=== PATIENT | male | born 1940 | race Caucasian/White ===

== ENCOUNTER 2017-10-09 16:14 | Emergency (ER) | payer MEDICARE, OTHER ==
[2017-10-09] MEDS ORDERED: HYDROmorphone 1 MG/ML Syringe IVPUSH ONE (16:41)
[2017-10-09 17:00] VITALS: BP 112/67
[2017-10-09 17:26] LABS: CHLORIDE,CL 101 mmol/L (98-107); SODIUM,NA 139 mmol/L (136-145)
[2017-10-09] MEDS ORDERED: Morphine 4 MG/ML Syringe IVPUSH ONE (17:39)
--- NOTE | 2017-10-09 18:06 | EDM.PDOC ---
ED HPI GENERAL MEDICAL PROBLEM - General Chief Complaint: Lower Extremity Injury/Pain Time Seen by Provider: 10/09/17 17:40 Source of Information: Reports: Patient, EMS, Family History Limitations: Reports: No Limitations - History of Present Illness INITIAL COMMENTS - FREE TEXT/NARRATIVE: Pt. was attempting to lift an office chair and fell, landing on his R side. He states that he did not strike his head. Denies any neck pain. He states that he thinks he "twisted" wrong during the fall and began experiencing pain in his L hip. Pt. has a history of osteoporosis. He also has a history of CAD, but denies any chest pain, shortness of breath, lightheadedness, or palpitations prior to the fall. Onset: Today Location: Reports: Upper Extremity, Left Quality: Reports: Sharp, Throbbing Severity: Severe Improves with: Reports: Rest Worsens with: Reports: Movement Context: Reports: Trauma Left Hip Pain Score (Numeric/FACES): 7 - Related Data Allergies Allergy/AdvReac Type Severity Reaction Status Date / Time cetirizine HCl Allergy Other Verified 10/09/17 16:39 [From Zyrtec-D] pseudoephedrine HCl Allergy Other Verified 10/09/17 16:39 [From Zyrtec-D] aspirin AdvReac Bleeding Verified 10/09/17 16:39 benazepril HCl AdvReac Nausea and Verified 10/09/17 16:39 [From Lotensin] Vomiting celecoxib [From Celebrex] AdvReac Nausea and Verified 10/09/17 16:39 Vomiting Home Meds: Home Meds Alendronate [Fosamax] 1 tab PO ASDIRECTED 05/23/15 [History] Calcium Carbonate [Tums] 1 tab PO ASDIRECTED PRN 05/23/15 [History] Calcium Carbonate/Vitamin D3 [Calcium 600 + Vit D Tablet] 1 tab PO DAILY [History] Citalopram Hydrobromide [Celexa] 30 mg PO DAILY 05/23/15 [History] Cyclobenzaprine [Flexeril] 1 tab PO DAILY 05/23/15 [History] Ferrous Sulfate 325 mg PO DAILY 05/23/15 [History] Hydrochlorothiazide 1 tab PO DAILY 05/23/15 [History] Hydrocodone/Acetaminophen [[facility] 10-325] 1 tab PO Q4H PRN 05/23/15 [History] Losartan [Cozaar] 1 tab PO DAILY 05/23/15 [History] Lovastatin 1 tab PO BEDTIME 05/23/15 [History] Magnesium Hydroxide [Milk of Magnesia] 30 ml PO DAILY PRN 05/23/15 [History] Meloxicam [Mobic] 1 tab PO DAILY 05/23/15 [History] Multivitamin with Minerals [Multivitamins with Minerals] 1 tab PO DAILY [History] Omeprazole [Prilosec] 1 cap PO BID 05/23/15 [History] amLODIPine [Norvasc] 1 tab PO DAILY 05/23/15 [History] predniSONE [Prednisone] 4 tab PO Q2D 05/23/15 [History] predniSONE [Prednisone] 5 mg PO Q2D 05/23/15 [History] Past Medical History Other Cardiovascular History: HOLOSYSTOLIC MURMUR Other Gastrointestinal History: HX OF SMALL BOWEL OBSTRUCTION Other Genitourinary History: TESTOSTERONE DEF, Other Musculoskeletal History: DJD, TROCHANTERIC BURSITIS Other Neuro History: HERPES SIMPLEX LABIALIS - Past Surgical History Other GI Surgeries/Procedures: VENTRAL HERNIA Other Musculoskeletal Surgeries/Procedures:: POLYMYALGIA RHEUMATICA, shoulder injection Social & Family History - Tobacco Use Smoking Status *Q: Never Smoker Used Tobacco, but Quit: Yes Month Tobacco Last Used: 40 years ago Second Hand Smoke Exposure: Yes - Recreational Drug Use Recreational Drug Use: No Drug Use in Last 12 Months: No Review of Systems - Review of Systems Review Of Systems: See Below Constitutional: Reports: No Symptoms Eyes: Reports: No Symptoms Ears: Reports: No Symptoms Nose: Reports: No Symptoms Mouth/Throat: Reports: No Symptoms Respiratory: Reports: No Symptoms Cardiovascular: Reports: No Symptoms GI/Abdominal: Reports: No Symptoms Genitourinary: Reports: No Symptoms Musculoskeletal: Reports: Joint Pain (L hip) Skin: Reports: No Symptoms Neurological: Reports: No Symptoms Psychiatric: Reports: No Symptoms ED EXAM, GENERAL - Physical Exam Exam: See Below Exam Limited By: No Limitations General Appearance: Alert, WD/WN, No Apparent Distress Ears: Normal External Exam, Hearing Grossly Normal Nose: Normal Inspection, Normal Mucosa, No Blood Throat/Mouth: Normal Inspection, Normal Lips, Normal Teeth, Normal Gums, Normal Oropharynx, Normal Voice, No Airway Compromise Head: Atraumatic, Normocephalic Neck: Normal Inspection, Supple, Non-Tender, Full Range of Motion Respiratory/Chest: No Respiratory Distress, Lungs Clear, Normal Breath Sounds, No Accessory Muscle Use, Chest Non-Tender Cardiovascular: Normal Peripheral Pulses, Regular Rate, Rhythm, No Edema, No Gallop, No JVD, No Murmur, No Rub Peripheral Pulses: 2+: Posterior Tibial (L), Posterior Tibial (R), Dorsalis Pedis (L), Dorsalis Pedis (R) GI/Abdominal: Normal Bowel Sounds, Soft, Non-Tender, No Organomegaly, No Distention, No Abnormal Bruit, No Mass (Male) Exam: Deferred Rectal (Males) Exam: Deferred Back Exam: Normal Inspection, Full Range of Motion, NT Extremities: Joint Swelling, Leg Pain, Other (pain on palpation and manipulation of L hip. The extremity is inwardly rotated. No shortening noted.) Neurological: Alert, Oriented, CN II-XII Intact, Normal Cognition, Normal Gait, Normal Reflexes, No Motor/Sensory Deficits Psychiatric: Normal Affect, Normal Mood Skin Exam: Warm, Dry, Intact, Normal Color, No Rash Course - Vital Signs Last Recorded V/S: Last Vital Signs Temp 36.1 C 10/09/17 16:20 Pulse 67 10/09/17 16:20 Resp 18 10/09/17 16:20 BP 112/67 10/09/17 16:20 Pulse Ox 95 10/09/17 16:20 - Orders/Labs/Meds Orders: Active Orders 24 hr Category Date Time Status Hip Min 2V or 3V w Pelvis Lt [CR] Stat Exams 10/09/17 16:41 Taken Labs: Laboratory Tests 10/09/17 10/09/17 10/09/17 Range/Units 16:55 16:55 16:55 WBC 10.6 H (4.0-10.0) x10^3/uL RBC 4.15 L (4.5-6.0) x10^6/uL Hgb 12.0 L (14.0-18.0) g/dL Hct 38.1 L (40.0-52.0) % MCV 91.8 (78.0-93.0) fL MCH 28.9 (26.0-32.0) pg MCHC 31.5 L (32.0-36.0) g/dL RDW Coeff of Reuben 14.0 (10.0-15.0) % Plt Count 194 (130-400) x10^3/uL Neut % (Auto) 71.0 (50.0-80.0) % Lymph % (Auto) 19.8 L (25.0-50.0) % [place] % (Auto) 6.4 (2.0-11.0) % Eos % (Auto) 2.2 (0.0-4.0) % Baso % (Auto) 0.6 (0.2-1.2) % PT 10.4 (9.8-11.8) SEC INR 1.0 L (2.0-3.5) Sodium 139 (136-145) mmol/L Potassium 3.9 (3.5-5.1) mmol/L Chloride 101 (98-107) mmol/L Carbon Dioxide 30 (21-32) mmol/L BUN 22 H (7-18) mg/dL Creatinine 1.1 (0.70-1.30) mg/dL Est Cr Clr Drug Dosing 56.22 mL/min Estimated GFR (MDRD) > 60 Glucose 106 (74-106) mg/dL Calcium 8.9 (8.5-10.1) mg/dL Corrected Calcium 9.30 (8.5-10.1) mg/dL Total Bilirubin 0.4 (0.2-1.0) mg/dL AST 17 (15-37) U/L ALT 20 (16-63) U/L Alkaline Phosphatase 108 (46-116) U/L Total Protein 7.3 (6.4-8.2) g/dL Albumin 3.5 (3.4-5.0) g/dL Globulin 3.8 Albumin/Globulin Ratio 0.92 Meds: Medications Discontinued Medications Generic Name Dose Route Start Last Admin Trade Name Freq PRN Reason Stop Dose Admin Hydromorphone HCl 1 mg 10/09/17 16:41 10/09/17 16:47 Dilaudid IVPUSH 10/09/17 16:42 1 mg ONETIME ONE Administration Morphine Sulfate 4 mg 10/09/17 17:39 10/09/17 17:49 Morphine IVPUSH 10/09/17 17:40 4 mg ONETIME ONE Administration Departure - Departure Time of Disposition: 18:20 Disposition: DC/Tfer to Acute Hospital 02 Condition: Good Clinical Impression: Closed left hip fracture, Fracture of neck of femur, hip - Discharge Information Referrals: Jordi Nieves MD [Primary Care Provider] - Forms: ED Department Discharge, Interfacility Transfer EMTALA - My Orders Last 24 Hours: My Active Orders 10/09/17 16:41 Hip Min 2V or 3V w Pelvis Lt [CR] Stat - Assessment/Plan Last 24 Hours: My Active Orders 10/09/17 16:41 Hip Min 2V or 3V w Pelvis Lt [CR] Stat
== END 2017-10-09 18:23 | disposition short-term general hospital (02) ==
LOC: VM.ED 16:14
DX: S72.142A Displaced intertrochanteric fracture of left femur, initial encounter for closed fracture (principal); Z79.899 Other long term (current) drug therapy; Z88.6 Allergy status to analgesic agent; Z88.1 Allergy status to other antibiotic agents; Z88.8 Allergy status to other drugs, medicaments and biological substances; Z77.22 Contact with and (suspected) exposure to environmental tobacco smoke (acute) (chronic); W07.XXXA Fall from chair, initial encounter
CPT/HCPCS: 36415; 73502; 80053; 85025; 85610; 96374; 96375; 99284; 99285; J1170; J2270

== ENCOUNTER 2017-10-13 07:35 | Inpatient (IN) | payer MEDICARE, OTHER ==
[2017-10-13] MEDS ORDERED: Magnesium Hydroxide 400 MG/5 ML Susp 30 ML Cup PO PRN (14:29)
[2017-10-13] MEDS ORDERED: Calcium Carbonate 750 MG Tab.Chew PO PRN (14:29)
[2017-10-13] MEDS ORDERED: Acetaminophen/HYDROcodone 325-10 MG Tab PO PRN (14:29)
[2017-10-13] MEDS ORDERED: predniSONE 1 MG Tab PO SCH (15:00)
[2017-10-13] MEDS: predniSONE 1 MG Tab PO SCH (15:11)
--- NOTE | 2017-10-13 18:04 | PCM.HP ---
H&P History of Present Illness - General Date of Service: 10/13/17 Admit Problem/Dx: Admission Diagnosis/Problem Admission Diagnosis/Problem Fracture of head of femur - History of Present Illness Initial Comments - Free Text/Narative: HPI: He is entering Swing Bed for recuperation from Fx L femoral neck, got ORIF with a hip nail on 10/09/17, with an uneventful postop course. He is partial weightbearing, using a walker, on regular diet. 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 His fall occurred when he put his recliner chair up on the table to oil it because it was squeaking, and it tipped off and fell on him, knocking him over. After having osteoporosis for many years he had a DEXA scan 07/15 which finally showed true osteoporosis, T score of hip was -2.6 so he was given Fosamax in but he stopped it after a month because of GI upset. On his Annual Physical last year this was noted so he was given 1 dose of Reclast 5 mg IV on 03/31/17 and will get it to annually for a few years, plan DEXA scan sometime next summer. Medical History -Hx HTn, COPD, hyperlipidemia, microcytosis w/o anemia, and depression -Rx Prednisone for PMR since -Prostatic hypertrophy. -Fe def'y , Fe sat'n 12%, 10%; 12/08 8%, Rx Fe again as FeSO4 instead of Feritinic -08/03 Ortho consult for DJD knees TNagleMD, R hip 08/04, 09/04 Lorcet, 10/04 Oxycontin, 11/04 Duragesic -Hosp 01/01 for GI bleeding, transfusion 2 units; antral,duodenal ulcers on EGD -09/04 ENT consult for vertigo, JReynoldsMD -09/04 Pulm consult for chronic cough, BAndersonMD; Rx inhaled steroid for mild obstruction; methacholine test equivocal; later went to [facility] also -12/02 Sleep Study, Donald, equivocal; CPAP Rx'd 7 cm 02/01, he D/C'd on his own within a few mo. -09/07 Rx testosterone for hypogonadism, D/C'd 05/08 -03/04 start Celexa for depression -EchoKG 01/05: mild valve changes, EF 50% -02/04 XR's, MRI C-spine: many non-specific abnormalities -Neuro consult 04/07 w. SGoliMD for R hand pain, abnormal MRI, rec. medical management, got Neurosurg ref. 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 2 wk says Cymbalta caused back pain -08/12 Rx testosterone again, restarted while wintering in [place] -04/12 Reassured re reactive lymphadenopathy R post cervical, from scalp abrasion -07/12 Hosp x 2 in [place], kaleb, then bowel obstruction, see below -12/11 Rx Prilosec for post-prandial epigastric pain, cleared quickly -11/12 OV for persistent pain R neck, occiput, ear, eye; ESR normal -05/14 Formulary C/O Q-T prolongation w. Celexa 40 mg, pt. wants to continue that dose, says doing well -09/19 EchoKG for systolic murmur: EF 60%, mild mitral irregularity and mild mitral regurgitation only Surgical History -Tonsillectomy as child -Bowel obstruction surgery ', 5 episodes of partial obstruction since, Rx medically, incl. , 05/08. -Spont. bilat pneumothorax ', quit smoking then -CABG x 4, , no chest pain since -Synvisc inj'n both knees 06/03 -Kenalog 40 mg inj'n L shoulder 02/04 for subacromial bursitis, STL -Depo-Medrol inj'n both knees for DJD 03/07, PDD -R inguinal hernia repair 08/08, MGM -09/08 Ortho consult for DJD knees TNagleMD -R total knee arthroplasty 10/06, TNagleMD -Colonoscopy 06/08 unable, changed to Owen; divertics only -L knee replacement 02/07, difficult post-op course, continued pain -07/12 Laparoscopic cholecystectomy -07/12 Hosp: 2 d. p. D/C from above, re-admit for bowel obstruction, 2 ft of small bowel resection; no recurrence in 1 yr afterward -12/13 Kenalog 40 mg injection,~R trochanteric bursitis, also R shoulder for impingement syndrome, subacromial bursitis -01/16 angiogram L femoral artery and angioplasty, good result -Kenalog injection to R trochanteric bursitis 01/16, 05/19 -Bilateral blepharoplasty 03/18, good result ~ Family History -F d. age 85 prostate Ca -M d. 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 Application for [employer] initiated at 11/10. 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 12/16 having surgery for recurrent breast CA. ROS Review of Systems Constitutional: -Weight stays about the same, VS good, felt well until his accident HENT: -Still doesn't use CPAP. ~Hearing OK. ~More teeth extracted this summer, now has complete denture above and partial below, good result.~ Eyes: -Bilateral blepharoplasty 01/16, by Dr. Patel; good result from this and from bilat cataract extraction in 10/16; 03/19 doesn't even wear glasses~ Respiratory: -No bronchitis or pneumonia this winter; was a heavy smoker but quit in . ~ Got lots of SHS from , but she finally quit in , gained lots of weight.~ Cardiovascular: -No chest pain, exertional or otherwise, since his CABG 22 yr ago; no longer carries TNG. ~BP low, has occasional orthostatic lightheadedness~ Gastrointestinal: -Colonoscopy 05/17, divertics and a small hyperplastic polyp, presume no more~ Endocrine: -He has had Impaired Fasting Glucose for many years; TSH normal. ~Needs aggressive lipid management because of his vascular disease~ Genitourinary: -No hesitancy, stream OK.~ Musculoskeletal: -R shoulder painful, had a steroid injection 03/19 but didnt help. Recently had steroid injection R trochanteric bursa with good result Skin: -No change to the lesion on helix of L ear~ Allergic/Immunologic: -No hay fever~ Neurological: -No headaches or syncopal spells~ Hematological: -Bleeds easily, even though has not taking his recommended ASA~ Psychiatric/Behavioral: -On Celexa many years, "it works very well", at 30 mg daily~ Physical Exam: -General: Alert and comfortable, VS OK -Eyes: Pupils equal -Mouth and throat: Dentures above, partial below, no abnormality -Neck: No thyroid enlargement or masses -Cardiac: Heart sounds regular, soft systolic murmur as before -Chest: Lung sounds clear -Abdomen: Soft and nontender -: Not done -Extremities: Did not test ROM of his R shoulder, sitting in chair; no ankle edema -Skin: 3 small incisions, with dressings over her L hip; no abnormality noted; the lesion on his ear has not changed -Neurologic: Facial muscles, speech, movement of extremities normal -Psych: Affect normal Impression: -Fall with L femoral neck fracture, S/P ORIF with nail -Generalized atherosclerosis with moderate carotid stenosis and peripheral artery disease, S/P angioplasty -Polymyalgia rheumatica, managed on low-dose prednisone -Osteoporosis, probably from his long-term prednisone Rx; on Reclast since 03/19 because he didnt tolerate bisphosphonates -DJD, especially R shoulder -HTn~still somewhat overtreated -Impaired fasting glucose Plan: -Fosamax DCd because of intolerance previously -Continue swing bed, gradually increase weightbearing with Surgery F/U -Temporarily increase his [place]aho up to 10/325 every 4 hours when necessary Left Hip Pain Score (Numeric/FACES): 4 - Related Data Allergies/Adverse Reactions: Allergies Allergy/AdvReac Type Severity Reaction Status Date / Time aspirin AdvReac Bleeding Verified 10/09/17 16:39 benazepril HCl AdvReac Nausea and Verified 10/09/17 16:39 [From Lotensin] Vomiting celecoxib [From Celebrex] AdvReac Nausea and Verified 10/09/17 16:39 Vomiting cetirizine HCl AdvReac Drowsiness Verified 10/13/17 11:41 [From Zyrtec-D] pseudoephedrine HCl AdvReac Drowsiness Verified 10/13/17 11:41 [From Zyrtec-D] Home Medications: Home Meds Calcium Carbonate [Tums] 1 tab PO ASDIRECTED PRN 05/23/15 [History] Calcium Carbonate/Vitamin D3 [Calcium 600 + Vit D Tablet] 1 tab PO BID 05/23/15 [History] Citalopram Hydrobromide [Celexa] 10 mg PO DAILY 05/23/15 [History] Hydrochlorothiazide 25 mg PO DAILY 05/23/15 [History] Lovastatin 20 mg PO BEDTIME 05/23/15 [History] Magnesium Hydroxide [Milk of Magnesia] 30 ml PO DAILY PRN 05/23/15 [History] Multivitamin with Minerals [Multivitamins with Minerals] 1 tab PO DAILY [History] Omeprazole [Prilosec] 20 mg PO DAILY 05/23/15 [History] predniSONE [Prednisone] 4 tab PO Q3D 05/23/15 [History] predniSONE [Prednisone] 5 mg PO Q3D 05/23/15 [History] Phenylephrine [Attila-Synephrine 0.5% Regular Nasal [place]] 1 spray NS DAILY [History] Citalopram [Citalopram HBr] 20 mg PO DAILY 10/13/17 [History] Enoxaparin [Lovenox] 40 mg SUBCUT DAILY 10/13/17 [History] Ferrous Sulfate 325 mg PO DAILY 10/13/17 [History] Hydrocodone/Acetaminophen [Hydrocodon-Acetaminophn 10-325] 1 tab PO Q6H PRN [History] Zoledronic Acid in Water [Reclast] 5 mg IV ASDIRECTED 10/13/17 [History] predniSONE [Prednisone] 3 mg PO Q3D 10/13/17 [History] Past Medical History HEENT History: Reports: Allergic Rhinitis Cardiovascular History: Reports: CAD, Heart Murmur, High Cholesterol, Hypertension, ND, PVD, Other (See Below) Other Cardiovascular History: HOLOSYSTOLIC MURMUR, atherosclerosis Respiratory History: Reports: COPD, Sleep Apnea Gastrointestinal History: Reports: GERD, Other (See Below) Other Gastrointestinal History: HX OF SMALL BOWEL OBSTRUCTION, ulcers Other Genitourinary History: TESTOSTERONE DEF, Musculoskeletal History: Reports: Fracture, Osteoarthritis Other Musculoskeletal History: DJD, TROCHANTERIC BURSITIS Other Neuro History: HERPES SIMPLEX LABIALIS Psychiatric History: Reports: Depression Hematologic History: Reports: Anemia - Past Surgical History HEENT Surgical History: Reports: Cataract Surgery Cardiovascular Surgical History: Reports: Coronary Artery Bypass Respiratory Surgical History: Reports: None GI Surgical History: Reports: Cholecystectomy, Colon, Colonoscopy Other GI Surgeries/Procedures: VENTRAL HERNIA Male Surgical History: Reports: None Musculoskeletal Surgical History: Reports: Joint Replacement, Other (See Below) Other Musculoskeletal Surgeries/Procedures:: POLYMYALGIA RHEUMATICA, shoulder injection, left hip nailing Social & Family History - Family History Family Medical History: Noncontributory - Tobacco Use Smoking Status *Q: Former Smoker Used Tobacco, but Quit: No Month/Year Tobacco Last Used: 40 years ago Second Hand Smoke Exposure: No - Caffeine Use Caffeine Use: Reports: Coffee, Soda - Recreational Drug Use Recreational Drug Use: No Drug Use in Last 12 Months: No H&P Review of Systems - Review of Systems: Review Of Systems: See Below Exam - Exam Exam: See Below - Vital Signs Vital Signs: Last Vital Signs Temp 36.7 C 10/13/17 16:47 Pulse 87 10/13/17 16:47 Resp 16 10/13/17 16:47 BP 127/63 10/13/17 16:47 Pulse Ox 92 L 10/13/17 16:47 Weight: 78.925 kg *Q Meaningful Use (ADM) - VTE *Q VTE Criteria *Q: - Stroke *Q Stroke Criteria *Q: - AMI *Q AMI Criteria *Q: Problem List Initiated/Reviewed/Updated: Yes Orders Last 24hrs: Active Orders 24 hr Category Date Time Status Admission Status [Patient Status] [ADT] Routine ADT 10/13/17 11:30 Active Patient Status [ADT] Routine ADT 10/13/17 14:27 Active Activity as Tolerated [RC] Care 10/13/17 11:30 Active Communication Order [RC] Care 10/13/17 10:22 Active Oxygen Therapy [RC] .PRN Care 10/13/17 14:27 Active VTE/DVT Education [RC] PER UNIT ROUTINE Care 10/13/17 14:27 Active Vital Signs [RC] ,18 Care 10/13/17 14:27 Active OT Evaluation and Treatment [CONS] Routine Cons 10/13/17 11:30 Active PT Evaluation and Treatment [CONS] Routine Cons 10/13/17 11:30 Active Regular Diet [DIET] Diet 10/13/17 Lunch Active Acetaminophen/HYDROcodone [[place]aho 325-10 MG] Med 10/13/17 17:29 Ordered 1 tab PO Q4H PRN Alendronate [Fosamax] Med 10/14/17 06:00 Stop Req 70 mg PO Q7D@0600 Calcium Carbonate [Tums Extra Strength] Med 10/13/17 14:29 Active 1 mg PO ASDIRECTED PRN Calcium Carbonate/Vitamin D3 [Calcium Carbonate/Vitamin Med 10/13/17 20:00 Active D 1250 MG-200 Unit] 1 tab PO BID Citalopram [Celexa] Med 10/14/17 08:00 Active 10 mg PO DAILY Citalopram [Celexa] Med 10/14/17 08:00 Active 20 mg PO DAILY Enoxaparin [Lovenox] Med 10/14/17 08:00 Active 40 mg SUBCUT DAILY Ferrous Sulfate Med 10/14/17 08:00 Active 325 mg PO DAILY Hydrochlorothiazide Med 10/14/17 08:00 Active 25 mg PO DAILY Lovastatin [Lovastatin] Med 10/13/17 20:00 Active 20 mg PO BEDTIME Magnesium Hydroxide [Milk of Magnesia] Med 10/13/17 14:29 Active 30 ml PO DAILY PRN Multivitamins w-Iron/Ca/FA/Min [Thera M Plus] Med 10/14/17 08:00 Active 1 tab PO DAILY Omeprazole Med 10/14/17 07:00 Active 20 mg PO DAILY@0700 Phenylephrine [Attila-Synephrine 0.5% Regular Nasal [place]] Med 10/14/17 08:00 Active 1 spray NS DAILY predniSONE Med 10/13/17 15:00 Active 3 mg PO Q3D@0800 predniSONE Med 10/15/17 08:00 Active 4 mg PO Q3D@0800 predniSONE Med 10/14/17 08:00 Active 5 mg PO Q3D@0800 Ice Therapy [OM.PC] Routine Oth 10/13/17 10:24 Ordered Weight bearing status [OM.PC] Routine Oth 10/13/17 11:30 Active Medication Orders Hydrocodone Bitart/Acetaminophen ([place] 325-10 Mg) 1 tab PO Q4H PRN PRN Reason: Pain (severe 7-10) Alendronate Sodium (Fosamax) 70 mg PO Q7D@0600 [facility] Calcium Carbonate (Calcium Carbonate/Vitamin D 1250 Mg-200 Unit) 1 tab PO BID SHANNON Calcium Carbonate/Glycine (Tums Extra Strength) 1 mg PO ASDIRECTED PRN PRN Reason: Heartburn Citalopram Hydrobromide (Celexa) 20 mg PO DAILY [facility] Citalopram Hydrobromide (Celexa) 10 mg PO DAILY [facility] Enoxaparin Sodium (Lovenox) 40 mg SUBCUT DAILY [facility] Ferrous Sulfate (Ferrous Sulfate) 325 mg PO DAILY [facility] Hydrochlorothiazide (Hydrochlorothiazide) 25 mg PO DAILY [facility] Magnesium Hydroxide (Milk Of Magnesia) 30 ml PO DAILY PRN PRN Reason: Constipation Multivitamins/Minerals (Thera M Plus) 1 tab PO DAILY [facility] Lovastatin [ Lovastatin] 20 Mg ( Own Supply) 20 mg PO BEDTIME [facility] Phenylephrine [Attila- Synephrine 0.5% Regular Nasal [place]] 1 spray NS DAILY [facility] Omeprazole (Omeprazole) 20 mg PO DAILY@0700 [facility] Prednisone (Prednisone) 4 mg PO Q3D@0800 [facility] Prednisone (Prednisone) 5 mg PO Q3D@0800 [facility] Prednisone (Prednisone) 3 mg PO Q3D@0800 [facility] Last Admin: 10/13/17 15:11 Dose: 3 mg
[2017-10-13] MEDS: Acetaminophen/HYDROcodone 325-10 MG Tab PO PRN (19:56)
[2017-10-13] MEDS: Calcium Carbonate/Vitamin D3 1250 MG-200 Unit Tab PO SCH (19:58)
[2017-10-13] MEDS ORDERED: LOVASTATIN 20 MG PO SCH (20:00)
[2017-10-13] MEDS: Simvastatin 10 MG Tab PO SCH (22:33)
[2017-10-14] MEDS: Acetaminophen/HYDROcodone 325-10 MG Tab PO PRN ×5 (03:28→20:18)
[2017-10-14] MEDS ORDERED: Alendronate 70 MG Tab PO SCH (06:00)
[2017-10-14] MEDS: Omeprazole 20 MG Cap.CR PO SCH (06:46)
[2017-10-14] MEDS: Citalopram 10 MG Tab PO SCH (07:49)
[2017-10-14] MEDS: predniSONE 5 MG Tab PO SCH (07:49)
[2017-10-14] MEDS: Ferrous Sulfate 325 MG Tab PO SCH (07:49)
[2017-10-14] MEDS: Hydrochlorothiazide 25 MG Tab PO SCH (07:49)
[2017-10-14] MEDS: Citalopram 20 MG Tab PO SCH (07:50)
[2017-10-14] MEDS: Calcium Carbonate/Vitamin D3 1250 MG-200 Unit Tab PO SCH ×2 (07:50→19:36)
[2017-10-14] MEDS: Multivitamins with Iron/Calcium/Folic Acid/Minerals Tab PO SCH (07:50)
[2017-10-14] MEDS: Enoxaparin 40 MG/0.4 ML Syringe SUBCUT SCH (07:52)
[2017-10-14] MEDS: OXYMETAZOLINE NS SCH (12:34)
[2017-10-14] MEDS: Simvastatin 10 MG Tab PO SCH (19:37)
[2017-10-15] MEDS: Acetaminophen/HYDROcodone 325-10 MG Tab PO PRN ×4 (03:40→16:06)
[2017-10-15] MEDS: Omeprazole 20 MG Cap.CR PO SCH (06:43)
[2017-10-15] MEDS: Citalopram 10 MG Tab PO SCH (07:59)
[2017-10-15] MEDS: Ferrous Sulfate 325 MG Tab PO SCH (08:00)
[2017-10-15] MEDS: Hydrochlorothiazide 25 MG Tab PO SCH (08:04)
[2017-10-15] MEDS: Enoxaparin 40 MG/0.4 ML Syringe SUBCUT SCH (08:06)
[2017-10-15] MEDS: Multivitamins with Iron/Calcium/Folic Acid/Minerals Tab PO SCH (08:06)
[2017-10-15] MEDS: Calcium Carbonate/Vitamin D3 1250 MG-200 Unit Tab PO SCH ×2 (08:06→20:06)
[2017-10-15] MEDS: Citalopram 20 MG Tab PO SCH (08:08)
[2017-10-15] MEDS: OXYMETAZOLINE NS SCH (08:12)
[2017-10-15] MEDS: predniSONE 1 MG Tab PO SCH (11:41)
[2017-10-15] MEDS: Simvastatin 10 MG Tab PO SCH (20:07)
[2017-10-16] MEDS: Acetaminophen/HYDROcodone 325-10 MG Tab PO PRN ×5 (00:08→19:28)
[2017-10-16] MEDS: Omeprazole 20 MG Cap.CR PO SCH (06:00)
[2017-10-16] MEDS: predniSONE 1 MG Tab PO SCH (07:30)
[2017-10-16] MEDS: Calcium Carbonate/Vitamin D3 1250 MG-200 Unit Tab PO SCH ×2 (07:31→19:28)
[2017-10-16] MEDS: Citalopram 20 MG Tab PO SCH (07:31)
[2017-10-16] MEDS: Multivitamins with Iron/Calcium/Folic Acid/Minerals Tab PO SCH (07:31)
[2017-10-16] MEDS: Hydrochlorothiazide 25 MG Tab PO SCH (07:31)
[2017-10-16] MEDS: Citalopram 10 MG Tab PO SCH (07:32)
[2017-10-16] MEDS: Ferrous Sulfate 325 MG Tab PO SCH (07:32)
[2017-10-16] MEDS: Enoxaparin 40 MG/0.4 ML Syringe SUBCUT SCH (07:33)
[2017-10-16] MEDS: OXYMETAZOLINE NS SCH (07:34)
[2017-10-16] MEDS: Simvastatin 10 MG Tab PO SCH (19:28)
[2017-10-17] MEDS: Acetaminophen/HYDROcodone 325-10 MG Tab PO PRN ×6 (00:04→20:05)
[2017-10-17] MEDS: Omeprazole 20 MG Cap.CR PO SCH (06:01)
[2017-10-17] MEDS: Calcium Carbonate/Vitamin D3 1250 MG-200 Unit Tab PO SCH ×2 (07:55→20:06)
[2017-10-17] MEDS: Citalopram 20 MG Tab PO SCH (07:56)
[2017-10-17] MEDS: Ferrous Sulfate 325 MG Tab PO SCH (07:56)
[2017-10-17] MEDS: Citalopram 10 MG Tab PO SCH (07:56)
[2017-10-17] MEDS: Hydrochlorothiazide 25 MG Tab PO SCH (07:57)
[2017-10-17] MEDS: predniSONE 5 MG Tab PO SCH (07:57)
[2017-10-17] MEDS: Multivitamins with Iron/Calcium/Folic Acid/Minerals Tab PO SCH (07:57)
[2017-10-17] MEDS: Enoxaparin 40 MG/0.4 ML Syringe SUBCUT SCH (07:57)
[2017-10-17] MEDS: OXYMETAZOLINE NS SCH (07:58)
[2017-10-17] MEDS: Simvastatin 10 MG Tab PO SCH (20:06)
[2017-10-18] MEDS: Acetaminophen/HYDROcodone 325-10 MG Tab PO PRN ×6 (00:05→20:12)
[2017-10-18] MEDS: Omeprazole 20 MG Cap.CR PO SCH (06:19)
[2017-10-18] MEDS: predniSONE 1 MG Tab PO SCH (08:09)
[2017-10-18] MEDS: Ferrous Sulfate 325 MG Tab PO SCH (08:10)
[2017-10-18] MEDS: Citalopram 20 MG Tab PO SCH (08:10)
[2017-10-18] MEDS: Multivitamins with Iron/Calcium/Folic Acid/Minerals Tab PO SCH (08:10)
[2017-10-18] MEDS: Citalopram 10 MG Tab PO SCH (08:10)
[2017-10-18] MEDS: Calcium Carbonate/Vitamin D3 1250 MG-200 Unit Tab PO SCH ×2 (08:10→20:11)
[2017-10-18] MEDS: Hydrochlorothiazide 25 MG Tab PO SCH (08:10)
[2017-10-18] MEDS: Enoxaparin 40 MG/0.4 ML Syringe SUBCUT SCH (08:12)
[2017-10-18] MEDS: OXYMETAZOLINE NS SCH (08:14)
[2017-10-18] MEDS: Simvastatin 10 MG Tab PO SCH (20:11)
[2017-10-19] MEDS: Acetaminophen/HYDROcodone 325-10 MG Tab PO PRN ×6 (04:02→20:29)
[2017-10-19] MEDS: Omeprazole 20 MG Cap.CR PO SCH (06:20)
[2017-10-19] MEDS: Calcium Carbonate/Vitamin D3 1250 MG-200 Unit Tab PO SCH ×2 (07:50→19:57)
[2017-10-19] MEDS: Ferrous Sulfate 325 MG Tab PO SCH (07:50)
[2017-10-19] MEDS: predniSONE 1 MG Tab PO SCH (07:51)
[2017-10-19] MEDS: Multivitamins with Iron/Calcium/Folic Acid/Minerals Tab PO SCH (07:52)
[2017-10-19] MEDS: Citalopram 20 MG Tab PO SCH (07:52)
[2017-10-19] MEDS: Hydrochlorothiazide 25 MG Tab PO SCH (07:52)
[2017-10-19] MEDS: Citalopram 10 MG Tab PO SCH (07:52)
[2017-10-19] MEDS: Enoxaparin 40 MG/0.4 ML Syringe SUBCUT SCH (07:54)
[2017-10-19] MEDS: OXYMETAZOLINE NS SCH (07:54)
--- NOTE | 2017-10-19 12:43 | PCM.PN ---
- General Info Date of Service: 10/19/17 Admission Dx/Problem (Free Text): His knee is progressing well and he anticipates discharge to home on 10/21/17. He has had such trouble sleeping that at night he has become delirious and agitated, threatening self-harm. Says he normally sleeps quite well at home except for waking up too early some mornings. He is not a candidate for benzodiazepine because of his chronic hydrocodone Rx, so he agrees to take melatonin 6 mg daily at bedtime until D/C. - Patient Data Vitals - Most Recent: Last Vital Signs Temp 36.2 C 10/19/17 05:52 Pulse 87 10/19/17 05:52 Resp 18 10/19/17 05:52 BP 138/77 10/19/17 05:52 Pulse Ox 94 L 10/19/17 05:52 Weight - Most Recent: 72.688 kg I&O - Last 24 Hours: Intake & Output 10/18/17 10/19/17 10/19/17 22:59 06:59 14:59 Intake Total 1200 180 Balance 1200 180 Med Orders - Current: Current Medications Hydrocodone Bitart/Acetaminophen (Cadet 325-10 Mg) 1 tab PO Q4H PRN PRN Reason: Pain (severe 7-10) Last Admin: 10/19/17 12:21 Dose: 1 tab Calcium Carbonate (Calcium Carbonate/Vitamin D 1250 Mg-200 Unit) 1 tab PO BID [facility] Last Admin: 10/19/17 07:50 Dose: 1 tab Calcium Carbonate/Glycine (Tums Extra Strength) 1 mg PO ASDIRECTED PRN PRN Reason: Heartburn Citalopram Hydrobromide (Celexa) 20 mg PO DAILY [facility] Last Admin: 10/19/17 07:52 Dose: 20 mg Citalopram Hydrobromide (Celexa) 10 mg PO DAILY [facility] Last Admin: 10/19/17 07:52 Dose: 10 mg Enoxaparin Sodium (Lovenox) 40 mg SUBCUT DAILY [facility] Last Admin: 10/19/17 07:54 Dose: 40 mg Ferrous Sulfate (Ferrous Sulfate) 325 mg PO DAILY [facility] Last Admin: 10/19/17 07:50 Dose: 325 mg Hydrochlorothiazide (Hydrochlorothiazide) 25 mg PO DAILY [facility] Last Admin: 10/19/17 07:52 Dose: 25 mg Magnesium Hydroxide (Milk Of Magnesia) 30 ml PO DAILY PRN PRN Reason: Constipation Melatonin (Melatonin) 6 mg PO BEDTIME [facility] Multivitamins/Minerals (Thera M Plus) 1 tab PO DAILY [facility] Last Admin: 10/19/17 07:52 Dose: 1 tab Sinex (Oxymetazoline () 0.05% (Own Supply)) 1 spray NS DAILY [facility] Last Admin: 10/19/17 07:54 Dose: 1 spray Omeprazole (Omeprazole) 20 mg PO DAILY@0700 [facility] Last Admin: 10/19/17 06:20 Dose: 20 mg Prednisone (Prednisone) 4 mg PO Q3D@0800 [facility] Last Admin: 10/18/17 08:09 Dose: 4 mg Prednisone (Prednisone) 5 mg PO Q3D@0800 [facility] Last Admin: 10/17/17 07:57 Dose: 5 mg Prednisone (Prednisone) 3 mg PO Q3D@0800 [facility] Last Admin: 10/19/17 07:51 Dose: 3 mg Simvastatin (Zocor) 10 mg PO BEDTIME [facility] Last Admin: 10/18/17 20:11 Dose: 10 mg Discontinued Medications Hydrocodone Bitart/Acetaminophen (Cadet 325-10 Mg) 1 tab PO Q6H PRN PRN Reason: Pain (severe 7-10) Last Admin: 10/13/17 15:50 Dose: 1 tab Alendronate Sodium (Fosamax) 70 mg PO Q7D@0600 [facility] Lovastatin [ Lovastatin] 20 Mg ( Own Supply) 20 mg PO BEDTIME [facility] Last Admin: 10/14/17 08:19 Dose: Not Given Prednisone (Prednisone) 3 mg PO Q3D [facility] - Problem List Review Problem List Initiated/Reviewed/Updated: Yes - My Orders Last 24 Hours: My Active Orders 10/19/17 20:00 Melatonin 6 mg PO BEDTIME
[2017-10-19] MEDS: Simvastatin 10 MG Tab PO SCH (19:57)
[2017-10-19] MEDS ORDERED: Melatonin 3 MG Tab PO SCH (20:00)
[2017-10-20] MEDS: Acetaminophen/HYDROcodone 325-10 MG Tab PO PRN ×5 (00:44→17:06)
[2017-10-20] MEDS: Omeprazole 20 MG Cap.CR PO SCH (06:24)
[2017-10-20] MEDS: Ferrous Sulfate 325 MG Tab PO SCH (07:51)
[2017-10-20] MEDS: Enoxaparin 40 MG/0.4 ML Syringe SUBCUT SCH (07:51)
[2017-10-20] MEDS: Calcium Carbonate/Vitamin D3 1250 MG-200 Unit Tab PO SCH ×2 (07:52→20:12)
[2017-10-20] MEDS: Hydrochlorothiazide 25 MG Tab PO SCH (07:52)
[2017-10-20] MEDS: Citalopram 10 MG Tab PO SCH (07:52)
[2017-10-20] MEDS: Citalopram 20 MG Tab PO SCH (07:52)
[2017-10-20] MEDS: Multivitamins with Iron/Calcium/Folic Acid/Minerals Tab PO SCH (07:52)
[2017-10-20] MEDS: predniSONE 5 MG Tab PO SCH (08:03)
[2017-10-20] MEDS: OXYMETAZOLINE NS SCH (08:06)
[2017-10-20] MEDS: Calcium Carbonate 750 MG Tab.Chew PO PRN (09:31)
[2017-10-20] MEDS ORDERED: traZODone 50 MG Tab PO SCH (20:00)
[2017-10-20] MEDS: Simvastatin 10 MG Tab PO SCH (20:12)
[2017-10-21] MEDS: Acetaminophen/HYDROcodone 325-10 MG Tab PO PRN (00:26)
[2017-10-21 05:51] VITALS: BP 115/55
[2017-10-21] MEDS: Omeprazole 20 MG Cap.CR PO SCH (06:09)
[2017-10-21] MEDS: Citalopram 10 MG Tab PO SCH (07:49)
[2017-10-21] MEDS: Citalopram 20 MG Tab PO SCH (07:50)
[2017-10-21] MEDS: Calcium Carbonate/Vitamin D3 1250 MG-200 Unit Tab PO SCH (07:50)
[2017-10-21] MEDS: Multivitamins with Iron/Calcium/Folic Acid/Minerals Tab PO SCH (07:51)
[2017-10-21] MEDS: Ferrous Sulfate 325 MG Tab PO SCH (07:51)
[2017-10-21] MEDS: predniSONE 1 MG Tab PO SCH (07:52)
[2017-10-21] MEDS: Enoxaparin 40 MG/0.4 ML Syringe SUBCUT SCH (07:54)
[2017-10-21] MEDS: OXYMETAZOLINE NS SCH (07:56)
[2017-10-21] MEDS: Hydrochlorothiazide 25 MG Tab PO SCH (07:56)
[2017-10-21] MEDS: Calcium Carbonate 750 MG Tab.Chew PO PRN (07:57)
--- NOTE | 2017-10-21 09:50 | PCM.DCSUM1 ---
Discharge Summary - Hospital Course Free Text/Narrative:: Final Diagnosis: -L intertrochanteric hip Fx -Closed reduction and internal fixation with gamma nail -Insomnia with delirium Secondary diagnoses -Polymyalgia rheumatica -Impaired fasting glucose -Hypertension, controlled -Hyperlipidemia, controlled -Degenerative disease of knees, chronic opioid use -Coronary disease, S/P CABG -Depression, controlled Reason for Admission: Fell at home when a piece of furniture he was fixing fell on him, suffered intertrochanteric Fx L hip, had ORIF with gamma nail on 10/09/17 , admitted to swing bed for recuperation. Initial Findings: -Heart, lungs, vital signs normal -Alert and oriented -3 small incisions over proximal L femur, incisions clean and dressed Treatment and Course in Hospital: He did OK at first but slept very poorly, in spite of an increase in his usual Alpha 10/325, from his previous dose of 4 per day, up to 6 per day, one every 4 hours p.r.n., and he became delirious from this and threatened self-harm and was mildly disoriented. He requested something for sleep, while insisting that after he gets home he expects to be sleeping well again. We tried one night of melatonin 6 mg which did not help, and he got trazodone 50 mg the second night and got a good nights sleep, the night before D/C. His course was otherwise unremarkable and he had no lab during this stay. He had regular Physical Therapy and learned how to walk with a walker partial weightbearing. Condition on Discharge: -Wounds are clean -Lungs clear -Heart sounds normal and regular -Comfortable, alert and oriented Discharge Plan: -Continue partial weightbearing with walker -Keep Ortho appointment tomorrow -Decreased Alpha back to 4 per day again, Rx sent to his pharmacy for #120 -No F/U scheduled with Primary Care - Discharge Data Discharge Date: 10/21/17 Discharge Disposition: Home, Self-Care 01 Condition: Good - Patient Summary/Data Consults: Consultations 10/13/17 11:30 OT Evaluation and Treatment [CONS] Routine PT Evaluation and Treatment [CONS] Routine - Discharge Plan Home Medications: Home Meds Calcium Carbonate [Tums] 1 tab PO ASDIRECTED PRN 05/23/15 [History] Calcium Carbonate/Vitamin D3 [Calcium 600 + Vit D Tablet] 1 tab PO BID 05/23/15 [History] Citalopram Hydrobromide [Celexa] 10 mg PO DAILY 05/23/15 [History] Hydrochlorothiazide 25 mg PO DAILY 05/23/15 [History] Lovastatin 20 mg PO BEDTIME 05/23/15 [History] Magnesium Hydroxide [Milk of Magnesia] 30 ml PO DAILY PRN 05/23/15 [History] Multivitamin with Minerals [Multivitamins with Minerals] 1 tab PO DAILY [History] Omeprazole [Prilosec] 20 mg PO DAILY 05/23/15 [History] predniSONE [Prednisone] 4 tab PO Q3D 05/23/15 [History] predniSONE [Prednisone] 5 mg PO Q3D 05/23/15 [History] Citalopram [Citalopram HBr] 20 mg PO DAILY 10/13/17 [History] Ferrous Sulfate 325 mg PO DAILY 10/13/17 [History] Hydrocodone/Acetaminophen [Hydrocodon-Acetaminophn 10-325] 1 tab PO Q6H PRN [History] Zoledronic Acid in Water [Reclast] 5 mg IV ASDIRECTED 10/13/17 [History] predniSONE [Prednisone] 3 mg PO Q3D 10/13/17 [History] - Patient Data Vitals - Most Recent: Last Vital Signs Temp 36.4 C 10/21/17 05:49 Pulse 54 L 10/21/17 05:49 Resp 19 10/21/17 05:49 BP 115/55 L 10/21/17 05:49 Pulse Ox 91 L 10/21/17 05:49 Weight - Most Recent: 72.688 kg I&O - Last 24 hours: Intake & Output 10/20/17 10/21/17 10/21/17 22:59 06:59 14:59 Intake Total 720 420 Balance 720 420 Med Orders - Current: Current Medications Hydrocodone Bitart/Acetaminophen (Alpha 325-10 Mg) 1 tab PO Q4H PRN PRN Reason: Pain (severe 7-10) Last Admin: 10/21/17 00:26 Dose: 1 tab Calcium Carbonate (Calcium Carbonate/Vitamin D 1250 Mg-200 Unit) 1 tab PO BID [facility] Last Admin: 10/21/17 07:50 Dose: 1 tab Calcium Carbonate/Glycine (Tums Extra Strength) 750 mg PO ASDIRECTED PRN PRN Reason: Heartburn Last Admin: 10/21/17 07:57 Dose: 750 mg Citalopram Hydrobromide (Celexa) 20 mg PO DAILY [facility] Last Admin: 10/21/17 07:50 Dose: 20 mg Citalopram Hydrobromide (Celexa) 10 mg PO DAILY [facility] Last Admin: 10/21/17 07:49 Dose: 10 mg Enoxaparin Sodium (Lovenox) 40 mg SUBCUT DAILY [facility] Last Admin: 10/21/17 07:54 Dose: 40 mg Ferrous Sulfate (Ferrous Sulfate) 325 mg PO DAILY [facility] Last Admin: 10/21/17 07:51 Dose: 325 mg Hydrochlorothiazide (Hydrochlorothiazide) 25 mg PO DAILY [facility] Last Admin: 10/21/17 07:56 Dose: 25 mg Magnesium Hydroxide (Milk Of Magnesia) 30 ml PO DAILY PRN PRN Reason: Constipation Multivitamins/Minerals (Thera M Plus) 1 tab PO DAILY [facility] Last Admin: 10/21/17 07:51 Dose: 1 tab Sinex (Oxymetazoline () 0.05% (Own Supply)) 1 spray NS DAILY [facility] Last Admin: 10/21/17 07:56 Dose: 1 spray Omeprazole (Omeprazole) 20 mg PO DAILY@0700 [facility] Last Admin: 10/21/17 06:09 Dose: 20 mg Prednisone (Prednisone) 4 mg PO Q3D@0800 [facility] Last Admin: 10/21/17 07:52 Dose: 4 mg Prednisone (Prednisone) 5 mg PO Q3D@0800 [facility] Last Admin: 10/20/17 08:03 Dose: 5 mg Prednisone (Prednisone) 3 mg PO Q3D@0800 [facility] Last Admin: 10/19/17 07:51 Dose: 3 mg Simvastatin (Zocor) 10 mg PO BEDTIME [facility] Last Admin: 10/20/17 20:12 Dose: 10 mg Trazodone HCl (Trazodone) 50 mg PO BEDTIME [facility] Last Admin: 10/20/17 20:12 Dose: 50 mg Discontinued Medications Hydrocodone Bitart/Acetaminophen (Alpha 325-10 Mg) 1 tab PO Q6H PRN PRN Reason: Pain (severe 7-10) Last Admin: 10/13/17 15:50 Dose: 1 tab Alendronate Sodium (Fosamax) 70 mg PO Q7D@0600 [facility] Calcium Carbonate/Glycine (Tums Extra Strength) 1 mg PO ASDIRECTED PRN PRN Reason: Heartburn Melatonin (Melatonin) 6 mg PO BEDTIME [facility] Last Admin: 10/19/17 19:57 Dose: 6 mg Lovastatin [ Lovastatin] 20 Mg ( Own Supply) 20 mg PO BEDTIME [facility] Last Admin: 10/14/17 08:19 Dose: Not Given Prednisone (Prednisone) 3 mg PO Q3D [facility] *Q Meaningful Use (DIS) - VTE *Q VTE Criteria *Q: - Stroke *Q Stroke Criteria *Q: - AMI *Q AMI Criteria *Q:
== END 2017-10-21 10:20 | disposition home or self-care (01) | DRG 561 ==
LOC: VM.MS 11:30
PROVIDERS: ADMIT Family Medicine; ATTEND Family Medicine
DX: Z47.89 Encounter for other orthopedic aftercare (principal); G47.00 Insomnia, unspecified; R41.0 Disorientation, unspecified; M35.3 Polymyalgia rheumatica; I10 Essential (primary) hypertension; R73.02 Impaired glucose tolerance (oral); E78.5 Hyperlipidemia, unspecified; M17.0 Bilateral primary osteoarthritis of knee; F32.9 Major depressive disorder, single episode, unspecified; I25.10 Atherosclerotic heart disease of native coronary artery without angina pectoris; M81.0 Age-related osteoporosis without current pathological fracture; J44.9 Chronic obstructive pulmonary disease, unspecified; R01.1 Cardiac murmur, unspecified; K21.9 Gastro-esophageal reflux disease without esophagitis; Z79.899 Other long term (current) drug therapy; Z95.1 Presence of aortocoronary bypass graft; Z88.8 Allergy status to other drugs, medicaments and biological substances; Z87.891 Personal history of nicotine dependence
CPT/HCPCS: 97110-GP; 97116-GP; 97161-GP; 97165-GO; 97530-GP; 97535-GO; A9270-GY; J1650

== ENCOUNTER 2020-01-31 06:55 | Inpatient (IN) | payer MEDICARE, OTHER ==
[2020-01-31] MEDS ORDERED: HYDROmorphone 1 MG/ML Syringe IVPUSH PRN (17:02)
[2020-01-31] MEDS ORDERED: Ondansetron 4 MG/2 ML SDV IV PRN (17:02)
[2020-01-31] MEDS ORDERED: Temazepam 15 MG Cap PO PRN (17:02)
--- NOTE | 2020-01-31 17:02 | PCM.HP.2 ---
H&P History of Present Illness - General Date of Service: 01/31/20 Admit Problem/Dx: CHF - History of Present Illness Initial Comments - Free Text/Narative: Review of Systems Constitutional: Positive for unexpected weight change. Negative for chills and fever. HENT: Positive for dental problem. Negative for trouble swallowing. Eyes: Negative for visual disturbance. Respiratory: Positive for cough and shortness of breath. Negative for wheezing. Cardiovascular: Positive for chest pain. Negative for palpitations and leg swelling. Gastrointestinal: Negative for abdominal pain, blood in stool and vomiting. Genitourinary: Negative for decreased urine volume, difficulty urinating and dysuria. Musculoskeletal: Positive for arthralgias (chronic hip, narcs). Skin: Negative for rash. Neurological: Positive for dizziness. Psychiatric/Behavioral: Negative for self-injury and sleep disturbance. The patient is not nervous/anxious. Physical Exam Constitutional: He appears well-developed and well-nourished. No distress. HENT: Mouth/Throat: Oropharynx is clear and moist. Neck: Normal range of motion. No JVD present. Cardiovascular: Normal rate and regular rhythm. Murmur (faint systolic at apex) heard. Pulmonary/Chest: Effort normal and breath sounds normal. Abdominal: Soft. There is no tenderness. Musculoskeletal: He exhibits no edema. Lymphadenopathy: He has no cervical adenopathy. Skin: Skin is warm and dry. He is not diaphoretic. Psychiatric: He has a normal mood and affect. His behavior is normal. Judgment and thought content normal. CXR - Cardiomegaly and central vascular congestion. Bilateral pleural effusions. Bilateral symmetric basal predominant septal thickening with nonmasslike parenchymal opacities. Combination of findings suggest cardiogenic fluid retention in the chest with both interstitial and parenchymal edema, commonly seen with CHF exacerbation. EKG - Borderline sinus tach, no sig ST/T changes, tremor artifact BNP 20437 Trop - neg D-dimer <1 and largely equal to age would essentially r/o PE etc YEARS Algorithm for Pulmonary Embolism (PE) from [email or web address] on 01/31/2020 RESULT SUMMARY: PE excluded YEARS algorithm rules out PE (0.43% with symptomatic VTE during 3-month follow- up) INPUTS: patient > 0 = No Clinical signs of DVT > 0 = No Hemoptysis > 0 = No PE most likely diagnosis > 0 = No D-dimer ?1,000 ng/mL > 0 = No Assessment / Plan Congestive heart failure, unspecified HF chronicity, unspecified heart failure type (HCC) SOB (shortness of breath) - COMPLETE BLOOD COUNT WITH DIFFERENTIAL; Future - COMPREHENSIVE METABOLIC PANEL; Future - EKG; Future - TROPONIN I; Future - BRAIN NATRIURETIC PEPTIDE; Future - D-DIMER QUANTITATIVE; Future - C-REACTIVE PROTEIN (INFLAMMATION); Future - ESR; Future Weight loss, unintentional - COMPLETE BLOOD COUNT WITH DIFFERENTIAL; Future - COMPREHENSIVE METABOLIC PANEL; Future - EKG; Future - TROPONIN I; Future - BRAIN NATRIURETIC PEPTIDE; Future - D-DIMER QUANTITATIVE; Future - C-REACTIVE PROTEIN (INFLAMMATION); Future - ESR; Future - TSH REFLEX; Future - LDH TOTAL; Future - PSA; Future S/P CABG (coronary artery bypass graft) COPD, mild (HCC) Polymyalgia rheumatica (HCC) Essential hypertension Coronary artery disease involving [place] heart without angina pectoris, unspecified vessel or lesion type Chest pressure Plan: He has the appearance of acute congestive heart failure by his chest x- ray, symptoms, BNP. Last echocardiogram pretty good in 2017, eventually he'll need a follow-up one. He's diuretic randi, we can start him on oral Lasix 40 mg. Troponin negative here, we will get a second set in the morning to rule out non- STEMI. Otherwise no acute changes seen by EKG. Restart low-dose aspirin given known coronary history, at this point risks of GI bleed with would be outweighed the benefit. Think we can hold on heparin acutely here as PE and non-STEMI still don't seem highly likely. Etiology of longer term wt loss still not clear, couple of labs still pending. If pleural effusion not improving could consider CT chest DNR. Social History Socioeconomic History Marital status: Spouse name: Not on file Number of children: 0 Years of education: Not on file Highest education level: Not on file Occupational History Occupation: accounts manager at Occupation: [employer] Tobacco Use Smoking status: Former Smoker Types: Cigarettes Last attempt to quit: 08/03/1973 Years since quittin.5 Smokeless tobacco: Never Used Substance and Sexual Activity Alcohol use: No Alcohol/week: 0.0 standard drinks Drug use: No Types: Prescription Social History Narrative , has 2 step-children who are grown and have children of their own, incl. 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 Officially retired 07/09, but still works part-time. Application for powered scooter initiated at 11/10. Brothers Reji, farms at , [place] and one other. For many years wintered bhavin. in [place], near [place], but 12/11 plans to sell property in [place], too much crime; 11/15 no plans to return, selling property. 12/16 having surgery for recurrent breast CA. Centricity information in 12/03/12. Last CPE 10/18/19. - Related Data Allergies/Adverse Reactions: Allergies Allergy/AdvReac Type Severity Reaction Status Date / Time aspirin AdvReac Bleeding Verified 10/09/17 16:39 benazepril HCl AdvReac Nausea and Verified 10/09/17 16:39 [From Lotensin] Vomiting celecoxib [From Celebrex] AdvReac Nausea and Verified 10/09/17 16:39 Vomiting cetirizine HCl AdvReac Drowsiness Verified 10/13/17 11:41 [From Zyrtec-D] pseudoephedrine HCl AdvReac Drowsiness Verified 10/13/17 11:41 [From Zyrtec-D] Home Medications: Home Meds Calcium Carbonate [Tums] 1 tab PO ASDIRECTED PRN 05/23/15 [History] Calcium Carbonate/Vitamin D3 [Calcium 600 + Vit D Tablet] 1 tab PO BID 05/23/15 [History] Citalopram Hydrobromide [Celexa] 10 mg PO DAILY 05/23/15 [History] Hydrochlorothiazide 25 mg PO DAILY 05/23/15 [History] Lovastatin 20 mg PO BEDTIME 05/23/15 [History] Magnesium Hydroxide [Milk of Magnesia] 30 ml PO DAILY PRN 05/23/15 [History] Multivitamin with Minerals [Multivitamins with Minerals] 1 tab PO DAILY 05/23/15 [History] Omeprazole [Prilosec] 20 mg PO DAILY 05/23/15 [History] predniSONE [Prednisone] 4 tab PO Q3D 05/23/15 [History] predniSONE [Prednisone] 5 mg PO Q3D 05/23/15 [History] Citalopram [Citalopram HBr] 20 mg PO DAILY 10/13/17 [History] Ferrous Sulfate 325 mg PO DAILY 10/13/17 [History] Hydrocodone/Acetaminophen [Hydrocodone-Acetamin 10-325 mg] 1 tab PO Q6H PRN 10/13/17 [History] Zoledronic Acid in Water [Reclast] 5 mg IV ASDIRECTED 10/13/17 [History] predniSONE [Prednisone] 3 mg PO Q3D 10/13/17 [History] Past Medical History HEENT History: Reports: Allergic Rhinitis Cardiovascular History: Reports: CAD, Heart Murmur, High Cholesterol, Hypertension, [place], PVD, Other (See Below) Other Cardiovascular History: HOLOSYSTOLIC MURMUR, atherosclerosis Respiratory History: Reports: COPD, Sleep Apnea Gastrointestinal History: Reports: GERD, Other (See Below) Other Gastrointestinal History: HX OF SMALL BOWEL OBSTRUCTION, ulcers Other Genitourinary History: TESTOSTERONE DEF, Musculoskeletal History: Reports: Fracture, Osteoarthritis Other Musculoskeletal History: DJD, TROCHANTERIC BURSITIS Other Neuro History: HERPES SIMPLEX LABIALIS Psychiatric History: Reports: Depression Hematologic History: Reports: Anemia - Past Surgical History HEENT Surgical History: Reports: Cataract Surgery Cardiovascular Surgical History: Reports: Coronary Artery Bypass Respiratory Surgical History: Reports: None GI Surgical History: Reports: Cholecystectomy, Colon, Colonoscopy Other GI Surgeries/Procedures: VENTRAL HERNIA Male Surgical History: Reports: None Musculoskeletal Surgical History: Reports: Joint Replacement, Other (See Below) Other Musculoskeletal Surgeries/Procedures:: POLYMYALGIA RHEUMATICA, shoulder injection, left hip nailing Social & Family History - Family History Family Medical History: Noncontributory - Caffeine Use Caffeine Use: Reports: Coffee, Soda H&P Review of Systems - Review of Systems: Review Of Systems: See Below Exam - Exam Exam: See Below Sepsis Event Note - Focused Exam Date Exam was Performed: 01/31/20 Time Exam was Performed: 16:59 Problem List Initiated/Reviewed/Updated: Yes
[2020-01-31] MEDS ORDERED: Magnesium Hydroxide 400 MG/5 ML Susp 30 ML Cup PO PRN (17:05)
[2020-01-31] MEDS ORDERED: Calcium Carbonate 750 MG Tab.Chew PO PRN (17:05)
[2020-01-31] MEDS ORDERED: predniSONE 1 MG Tab PO SCH (17:15)
[2020-01-31] MEDS ORDERED: HYDROmorphone 0.5 MG/0.5 ML Syringe IVPUSH PRN (17:49)
[2020-01-31] MEDS: Aspirin 81 MG Tab.Chew PO SCH (18:02)
[2020-01-31] MEDS: Furosemide 40 MG Tab PO SCH (18:02)
[2020-01-31] MEDS: Acetaminophen/HYDROcodone 325-10 MG Tab PO PRN (18:45)
[2020-01-31] MEDS: Calcium Carbonate/Vitamin D3 1250 MG-200 Unit Tab PO SCH (20:21)
[2020-01-31] MEDS: Sodium Chloride 0.9% 10 ML Syringe FLUSH PRN ×2 (21:00→23:57)
[2020-02-01] MEDS: Omeprazole 20 MG Cap.CR PO SCH ×2 (05:24→07:30)
[2020-02-01 07:04] LABS: CHLORIDE,CL 100 mmol/L (98-107); SODIUM,NA 142 mmol/L (136-145)
[2020-02-01 07:26] LABS: ANION GAP 12.6 mmol/L (10-20)
[2020-02-01] MEDS: Multivitamins with Iron/Calcium/Folic Acid/Minerals Tab PO SCH (07:35)
[2020-02-01] MEDS: Cholecalciferol (Vitamin D3) 10 MCG Tab PO SCH (07:35)
[2020-02-01] MEDS: Aspirin 81 MG Tab.Chew PO SCH (07:35)
[2020-02-01] MEDS: Furosemide 40 MG Tab PO SCH (07:35)
[2020-02-01] MEDS: DULoxetine 30 MG Cap PO SCH (07:36)
[2020-02-01] MEDS: Ferrous Sulfate 325 MG Tab PO SCH (07:36)
[2020-02-01] MEDS: Calcium Carbonate/Vitamin D3 1250 MG-200 Unit Tab PO SCH ×2 (07:36→20:37)
[2020-02-01] MEDS ORDERED: Citalopram 20 MG Tab PO SCH (08:00)
[2020-02-01] MEDS ORDERED: Citalopram 10 MG Tab PO SCH (08:00)
[2020-02-01] MEDS ORDERED: DULoxetine 60 MG Cap PO SCH (08:00)
[2020-02-01] MEDS ORDERED: Hydrochlorothiazide 25 MG Tab PO SCH (08:00)
[2020-02-01] MEDS: Acetaminophen/HYDROcodone 325-10 MG Tab PO PRN ×2 (09:38→15:46)
[2020-02-01] MEDS: predniSONE 1 MG Tab PO SCH (09:38)
[2020-02-01] MEDS ORDERED: Iopamidol 612 MG/ML 100 ML Bottle IVPUSH ONE (10:32)
--- NOTE | 2020-02-01 11:37 | CT ---
[id number] CT/CT Chest W IV Exam: CT Chest W IV Clinical Data: HEMOPTYSIS WEIGHT LOSS SHORTNESS OF BREATH COMPARISON: CORRELATION IS MADE WITH YESTERDAY'S CHEST RADIOGRAPH FINDINGS: There are small to moderate bilateral pleural effusions There is no mediastinal mass or adenopathy There are no pulmonary emboli There are diffuse atheromatous calcifications There is extensive bullous emphysema and centrilobular emphysema. 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 NO MEDIASTINAL MASS OR ADENOPATHY SIGNIFICANT COPD BILATERAL EFFUSIONS EARLY ANEURYSM FORMATION OF ABDOMINAL AORTA Lon Lowery MD 02/01/20 1634 Thank you for allowing us to participate in the care of your patient.
[2020-02-01] MEDS: TERIPARATIDE SQ SCH (12:39)
[2020-02-01] MEDS ORDERED: Furosemide 40 MG/4 ML VIAL IV ONE (17:48)
[2020-02-01] MEDS ORDERED: Furosemide 20 MG/2 ML VIAL IVPUSH ONE (18:00)
--- NOTE | 2020-02-01 18:57 | PN ---
Progress Note for MERARI SALGADO Date: 02/01/2020 Room #: VM.205 SUBJECTIVE: This is hospital day #2 on an 79-year-old admitted with an acute heart failure exacerbation. Last EF was back in 2016 and it was 60%. The patient states that about 2 to 3 days ago, he started even having some chest discomfort. He had been coughing more. He had recently been in to the dentist around 01/22. 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 He states he was feeling pretty good right after he finished the antibiotics; however, then his symptoms of coughing up some blood, more short of breath and chest pain started. The patient has not had any fever or chills. He does normally take hydrocodone for chronic pain of the left hip. He has had it broken. He has had surgery. The patient does have a remote history of coronary artery disease and bypass surgery many years ago. He has not had any problems since. He does not currently take any diuretics, but actually he was on hydrochlorothiazide which was discontinued back in like October due to weight loss. He does not report any weight gain. He has actually lost about 100 pounds in his lifetime, but 30 pounds in 1 year, and then another nearly 10 pounds in 2 months from November to January. The patient was also recently started on Cymbalta. He can tolerate 30, but not 60 mg. He had admitted to using more hydrocodone due to his dental pain. He was evaluated in the clinic yesterday and found to have bilateral pleural effusions. He was given 40 mg of oral Lasix and placed on oxygen. He states he is feeling much better and hopes he can go home, but his oxygen saturations are barely over 90% on 3 L. He did smoke, but quit like 40 years ago. He has had no lung problems or required any inhalers. The patient otherwise had an EKG on admission, which showed him to have a sinus rhythm with PACs, nonspecific T-wave abnormalities. OBJECTIVE: VITAL SIGNS: Currently, his temperature is 98.2, his pulse is 109, weight 62 kg, blood pressure 150/99, respiratory rate 16 and O2 of 91% on 3 L. GENERAL: He is in no acute distress. HEART: Regularly irregular. I did not appreciate a murmur, but he states he has had one. LUNGS: Sounds are decreased bilaterally without crackles or wheezes. ABDOMEN: Has positive bowel sounds. Soft, nontender. EXTREMITIES: Warm and dry with no edema. MENTAL STATUS: The patient is alert and orientated x3. His is at the bedside. LABORATORY WORK: Does show white count of 12.4, hemoglobin 13.3, platelets 287. Sodium 142, potassium 3.6, chloride 100, bicarb 33, BUN 14, creatinine 0.9, glucose 116. Repeat troponin today 0.051, still negative. Calcium 9.4. White count from the clinic yesterday was elevated to 13, 1 month ago it was also 13.8. D-dimer was mildly positive, but less than 1. CRP was up to 200. ESR yesterday was 32. TSH was normal. LDH was normal. PSA was also undetectable. ProBNP was elevated to 14,000. ASSESSMENT AND PLAN: 1. Acute on chronic heart failure exacerbation, probably chronic diastolic. Patient was previously on hydrochlorothiazide several months ago. It was stopped and now he is having bilateral pleural effusions and he has responded well to Lasix. At this point, I will switch him over to 20 mg of IV Lasix given the fact that he is hypertensive. He already got the oral 40 this morning. I anticipate he will have good diuresis today and he will require less oxygen. 2. Hemoptysis and unintentional weight loss. The patient will get a lung CT today to rule out any pulmonary embolism given his elevated D-dimer and also malignancy. 3. Shortness of breath, likely due to the heart failure. He also has reported to have mild underlying chronic obstructive pulmonary disease, but has not been on any medications. 4. Known coronary artery disease. He did have some angina previous to admission. This was likely related to heart failure. His troponins have been negative. We will repeat his EKG and place him on telemetry. 5. Polymyalgia rheumatica by history and chronic pain. He is on his hydrocodone and lower dose prednisone. 6. Essential hypertension, likely elevated due to heart failure. 7. Anemia. He is on some iron supplements. This is mild. There is no acute bleeding. 8. Osteoporosis with previous fracture. He is on calcium and vitamin D. 9. Hyperlipidemia. He will continue the Mevacor. 10.Gastroesophageal reflux disease. He will continue his Prilosec daily. 11.Insomnia. He has Restoril available p.r.n. Plan: At this point, the patient will continue his same doses of prednisone. He is low dose for polymyalgia. His pain is under good control. We will place him on telemetry. We will repeat a troponin this afternoon. We will diurese him with IV Lasix and try to get him off oxygen. If he is continuing to require oxygen, we will do a home O2 eval tomorrow. We will get the lung CT today. The patient for DVT prophylaxis due to the hemoptysis will be given only SCDs. He would like to go home as soon as possible anticipate that might be tomorrow. PT also consulted. BEBO: 02/01/2020 18:02:17 MODL: 02/01/2020 18:51:24 /[id number]
[2020-02-01] MEDS: Acetaminophen 325 MG Tab PO PRN (20:37)
[2020-02-01] MEDS: Sodium Chloride 0.9% 10 ML Syringe FLUSH PRN (20:38)
[2020-02-02] MEDS: Acetaminophen/HYDROcodone 325-10 MG Tab PO PRN ×4 (00:38→22:04)
[2020-02-02] MEDS: Omeprazole 20 MG Cap.CR PO SCH ×2 (05:45→06:16)
[2020-02-02 07:14] LABS: CHLORIDE,CL 96 mmol/L (98-107); SODIUM,NA 140 mmol/L (136-145)
[2020-02-02] MEDS: Ferrous Sulfate 325 MG Tab PO SCH (07:37)
[2020-02-02] MEDS: DULoxetine 30 MG Cap PO SCH (07:37)
[2020-02-02] MEDS: Cholecalciferol (Vitamin D3) 10 MCG Tab PO SCH (07:37)
[2020-02-02] MEDS: Calcium Carbonate/Vitamin D3 1250 MG-200 Unit Tab PO SCH ×2 (07:37→19:25)
[2020-02-02] MEDS: Furosemide 40 MG Tab PO SCH (07:37)
[2020-02-02] MEDS: Multivitamins with Iron/Calcium/Folic Acid/Minerals Tab PO SCH (07:37)
[2020-02-02] MEDS: Aspirin 81 MG Tab.Chew PO SCH (07:37)
[2020-02-02] MEDS: Magnesium Oxide 400 MG Tab PO SCH (09:29)
[2020-02-02] MEDS: Potassium Chloride 10 MEQ Tab.ER PO SCH ×2 (09:29→17:47)
[2020-02-02] MEDS: Metoprolol Succinate 25 MG Tab.ER PO SCH (09:30)
[2020-02-02] MEDS ORDERED: Potassium Chloride 20 MEQ Tab.ER PO ONE (09:30)
[2020-02-02] MEDS: predniSONE 1 MG Tab PO SCH (09:35)
[2020-02-02] MEDS: TERIPARATIDE SQ SCH (09:38)
[2020-02-02] MEDS ORDERED: Enoxaparin 40 MG/0.4 ML Syringe SUBCUT ONE (10:45)
--- NOTE | 2020-02-02 10:54 | PN ---
Progress Note for MERARI SALGADO Date: 02/02/2020 Room #: VM.205 SUBJECTIVE: This is hospital day #3 for an 79-year-old admitted with a new heart failure exacerbation and also found to be in atrial fibrillation with rapid ventricular response yesterday. He has had rates up even to the 140s on telemetry. Most of his rates this morning have all been over 110. He is on no rate-controlling medications. He has no history of atrial fibrillation, but he states he is familiar with it. His ejection fraction was 60% in 2017. Otherwise, he states he slept well. His breathing is much better. He has actually been weaned off oxygen at rest, but has not been checked yet with activity. He was up working with PT yesterday and did fine. The patient is hoping to go home today. He denies any fatigue or chest pain. is at bedside and has many questions about his medications. She also asks about his sputum. I told her that the CT scan did show he had a lot of emphysema changes and likely down the road he might need some inhalers, but currently we are focusing on his heart failure. The patient was also restarted on aspirin. He is tolerating that. It was stopped in the past due to stomach bleeding. We discussed possibly taking Coumadin or Eliquis for stroke prevention. He would like Eliquis unless it is too costly. He has not met his deductible, so Coumadin was ordered and pharmacy is aware to do Coumadin teaching. Otherwise, he is eating well, 100% of his meals. OBJECTIVE: Vital Signs: His weight is 50.7 kg today, however, I suspect that to be inaccurate since it was 61 kg the other day because admitting weight was 62 kg and the patient had not had significant edema throughout. Nurses will recheck. Temperature 97, pulse 119, blood pressure 154/98, respiratory rate 18, and O2 of 95% on 2 L. Recently taken off oxygen and has not been rechecked. General: He is in no acute distress. Heart: Irregularly irregular with tachycardia. Lungs: His lung sounds are decreased in both bases but no crackles or wheezes. Abdomen: He has positive bowel sounds. Soft, nontender. Extremities: Warm and dry. No edema. Mental Status: He is alert. He is orientated x3. LABORATORY DATA: Lab work from today did show the patient to have a white count of 11.1, hemoglobin 13.6, platelets 313. Sodium 140, potassium 3, chloride 96, bicarb 36, BUN 19, creatinine 1.1, glucose 125, calcium 9.7, magnesium 1.6. Troponin yesterday afternoon went down to 0.037. It was never positive. ASSESSMENT: 1. Acute on chronic diastolic heart failure exacerbation, known ejection fraction of 60% back in 2017. He will need a repeat echo outpatient. The patient is doing well from a heart failure standpoint. He is diuresing well. He got IV Lasix yesterday but got oral Lasix 40 mg this morning. We will hold off on further IV due to the fact he has severe hypokalemia. Anticipate the patient can be discharged as soon as later today or tomorrow. He will also get heart failure education from nursing. 2. Hemoptysis and unintentional weight loss. His lung CT did not show a PE or any malignancy. 3. Chronic obstructive pulmonary disease, likely at least moderate to severe. His shortness of breath is also related to heart failure and the atrial fibrillation with rapid ventricular response. Discussed with the patient the primary priority right now is for his heart due to needing multiple medications for that. Likely, he will need lung testing as an outpatient. He will get a home O2 eval with ambulation to ensure that he does not need oxygen. 4. Known coronary artery disease with previous coronary artery bypass graft. Troponins have all been negative. Repeat EKG did not show any concerning ST changes. He is no longer having angina. We will continue medical management. He is on aspirin now until he is therapeutic on Coumadin. 5. Polymyalgia rheumatica and chronic pain. He is on his home medications. 6. Atrial fibrillation with rapid ventricular response. The patient will be started on Toprol 25 mg p.o. x1. We will hold off on any digoxin given the fact that the patient has hypokalemia. 7. Hypokalemia. We will give him 80 mEq this morning and another 40 later today. We will repeat this afternoon. 8. Essential hypertension, elevated due to heart failure. Metoprolol and further diuresis should help. 9. Anemia. He is on iron supplements. No acute bleeding concerns. Okay to start the Coumadin today. 10.Osteoporosis with previous fracture. He is on calcium and vitamin D. 11.Gastroesophageal reflux disease. Continue his Prilosec daily. 12.Insomnia. He has Restoril available here p.r.n. 13.Hyperlipidemia. PLAN: At this point, the patient will continue on acute cares. Ideally, the patient would stay overnight. He is really not very willing to do this. I will sign him out to the on-call doctor for evaluation later this afternoon. He will continue on telemetry. We will repeat a potassium. I will replace his potassium orally along with his magnesium orally. We will ensure that the heart rates improve with the oral metoprolol. If they do not, I will give him an IV dose. I will continue oral Lasix. I will start him on Coumadin and pharmacy will provide Coumadin education. The patient will also receive a deep vein thrombosis prophylaxis dose of Lovenox today. MKA: 02/02/2020 09:48:41 MODL: 02/02/2020 10:44:12 /[id number]
[2020-02-02] MEDS ORDERED: Metoprolol Tartrate 5 MG/5 ML SDV IVPUSH ONE (11:10)
[2020-02-02] MEDS ORDERED: Warfarin 2.5 MG Tab PO ONE (12:00)
--- NOTE | 2020-02-02 13:29 | CR ---
[id number] RAD/RAD Chest PA And Lateral EXAM: RAD Chest PA And Lateral INDICATION: HYPOXIA. COMPARISON: January 31, 2020. DISCUSSION: Cardiomegaly with central pulmonary vascular congestion, improved. Overall improved aeration of the lungs bilaterally. IMPRESSION: Overall improved aeration of the lungs with persistent central pulmonary vascular congestion. Esdras Vazquez DO 02/02/20 1327 Thank you for allowing us to participate in the care of your patient.
[2020-02-02] MEDS: Acetaminophen 325 MG Tab PO PRN (19:25)
[2020-02-02] MEDS: Sodium Chloride 0.9% 10 ML Syringe FLUSH PRN (19:26)
[2020-02-03 04:42] VITALS: PULSE 84
[2020-02-03] MEDS: Omeprazole 20 MG Cap.CR PO SCH (06:23)
[2020-02-03] MEDS ORDERED: Warfarin 2.5 MG Tab PO SCH (08:00)
[2020-02-03] MEDS: predniSONE 1 MG Tab PO SCH (08:05)
[2020-02-03] MEDS: Metoprolol Succinate 25 MG Tab.ER PO SCH (08:06)
[2020-02-03] MEDS: Furosemide 40 MG Tab PO SCH (08:06)
[2020-02-03] MEDS: Calcium Carbonate/Vitamin D3 1250 MG-200 Unit Tab PO SCH (08:06)
[2020-02-03] MEDS: Aspirin 81 MG Tab.Chew PO SCH (08:06)
[2020-02-03] MEDS: Multivitamins with Iron/Calcium/Folic Acid/Minerals Tab PO SCH (08:06)
[2020-02-03] MEDS: Cholecalciferol (Vitamin D3) 10 MCG Tab PO SCH (08:06)
[2020-02-03] MEDS: DULoxetine 30 MG Cap PO SCH (08:06)
[2020-02-03] MEDS: Ferrous Sulfate 325 MG Tab PO SCH (08:06)
[2020-02-03] MEDS: Acetaminophen/HYDROcodone 325-10 MG Tab PO PRN (08:07)
[2020-02-03 08:08] VITALS: BP 130/86
[2020-02-03] MEDS: Magnesium Oxide 400 MG Tab PO SCH (08:08)
[2020-02-03 08:12] LABS: CHLORIDE,CL 99 mmol/L (98-107); SODIUM,NA 141 mmol/L (136-145)
[2020-02-03] MEDS: TERIPARATIDE SQ SCH (08:23)
--- NOTE | 2020-02-03 09:09 | PCM.DCSUM1 ---
Discharge Summary - Hospital Course Free Text/Narrative:: Gwyn is a 79yoM who presented on 01/31/20 with c/o of SOB and cough with some hemoptysis. CXR at time of admission demonstrated fluid overload. Trops negative x3, d.dimer slightly positive. Patient does have past echo demonstrating EF of 60% in 2018. Due to c/o hemoptysis and elevated d.dimer a CT chest was obtained and this was negative for PE or pulmonary mass. He did require some oxygen supplementation during his hospital course. Patient was long ccessfully diuresed with Lasix. Electrolytes were monitored and replaced as necessary. On overnight of hospital day 2 he was noted to have rapid pulse; EKG demonstrated a.fib with RVR. He was initiated on BB with good results; also started on warfarin. On 02/02 patient is doing well, notes improvement in his breathing, no palpitations felt. He is saturating at/above 88% on RA (known COPD). Tele demonstrates rates in the 90s/low 100s overnight. Will plan to discharge him on metoprolol, Coumadin, and a small dose of lasix with close follow-up next week with BMP for monitoring of electrolytes/renal function. No home O2 at this time. Will also require follow-up echo outpatient. Side note: Does have minor streaking of blood in his sputum (will follow-up with PCP for further evaluation of this). also noted some concerns about him having a feeling of being full while eating (however no red-flag symptoms) so this can also be evaluated outpatient. Modified [place] Scale: No Signif.Disability Despite Sympt.Able to Carry Out Usual Act./Duties Modified Roman Scale Score: 1 - Discharge Data Discharge Date: 02/10/20 Discharge Disposition: Home, Self-Care 01 Condition: Good - Referral to Home Health Primary Care Physician: Patricia Alfonso, DO - Discharge Diagnosis/Problem(s) (1) HFrEF (heart failure with reduced ejection fraction) SNOMED Code(s): 626452085 ICD Code: I50.20 - UNSPECIFIED SYSTOLIC (CONGESTIVE) HEART FAILURE Status: Acute Current Visit: Yes (2) Atrial fibrillation with RVR SNOMED Code(s): 999866123841621 ICD Code: I48.91 - UNSPECIFIED ATRIAL FIBRILLATION Status: Acute Current Visit: Yes - Patient Summary/Data Consults: Consultations 02/01/20 09:41 PT Evaluation and Treatment [CONS] Routine - Patient Instructions Diet: Usual Diet as Tolerated Activity: As Tolerated Showering/Bathing: May Shower - Discharge Plan *PRESCRIPTION DRUG MONITORING PROGRAM REVIEWED*: Not Applicable *COPY OF PRESCRIPTION DRUG MONITORING REPORT IN PATIENT RADHA: Not Applicable Prescriptions/Med Rec: Warfarin [Coumadin] 2.5 mg PO DAILY 90 Days #30 tablet Ferrous Sulfate 325 mg PO DAILY 90 Days #30 tablet Furosemide [Lasix] 40 mg PO DAILY 90 Days #30 tablet Magnesium Oxide 400 mg PO DAILY 5 Days #5 tablet Metoprolol Succinate [Toprol XL] 25 mg PO DAILY 360 Days #30 tab.er Home Medications: Home Meds Calcium Carbonate [Tums] 1 tab PO ASDIRECTED PRN 05/23/15 [History] Calcium Carbonate/Vitamin D3 [Calcium 600 + Vit D Tablet] 1 tab PO BID 05/23/15 [History] Lovastatin 20 mg PO BEDTIME 05/23/15 [History] Magnesium Hydroxide [Milk of Magnesia] 30 ml PO DAILY PRN 05/23/15 [History] Multivitamin with Minerals [Multivitamins with Minerals] 1 tab PO DAILY 05/23/15 [History] Omeprazole [Prilosec] 20 mg PO DAILY 05/23/15 [History] predniSONE [Prednisone] 5 mg PO ASDIRECTED 05/23/15 [History] Hydrocodone/Acetaminophen [Hydrocodone-Acetamin 10-325 mg] 1 tab PO Q4HR PRN 10/13/17 [History] predniSONE [Prednisone] 3 mg PO ASDIRECTED 10/13/17 [History] Cholecalciferol (Vitamin D3) [Vitamin D3] 400 unit PO DAILY 01/31/20 [History] DULoxetine [Cymbalta] 30 mg PO DAILY 01/31/20 [History] DULoxetine [Cymbalta] 60 mg PO DAILY 01/31/20 [History] Teriparatide 20 mcg SQ DAILY 01/31/20 [History] Ferrous Sulfate 325 mg PO DAILY 90 Days #30 tablet 02/03/20 [Rx] Furosemide [Lasix] 40 mg PO DAILY 90 Days #30 tablet 02/03/20 [Rx] Magnesium Oxide 400 mg PO DAILY 5 Days #5 tablet 02/03/20 [Rx] Metoprolol Succinate [Toprol XL] 25 mg PO DAILY 360 Days #30 tab.er 02/03/20 [Rx] Warfarin [Coumadin] 2.5 mg PO DAILY 90 Days #30 tablet 02/03/20 [Rx] - Discharge Summary/Plan Comment DC Time >30 min.: Yes - General Info Date of Service: 02/03/20 Admission Dx/Problem (Free Text: CHF Functional Status: Reports: Pain Controlled, Tolerating Diet, Ambulating - Review of Systems General: Reports: Weakness (at baseline), Fatigue HEENT: Reports: No Symptoms Pulmonary: Reports: Hemoptysis (improved, still has some streaking) Cardiovascular: Reports: No Symptoms Gastrointestinal: Reports: No Symptoms Genitourinary: Reports: No Symptoms Musculoskeletal: Reports: No Symptoms (PMR symptoms at baseline) Skin: Reports: No Symptoms Neurological: Reports: No Symptoms Psychiatric: Reports: No Symptoms - Patient Data Vitals - Most Recent: Last Vital Signs Temp 36.4 C 02/03/20 04:41 Pulse 84 02/03/20 08:06 Resp 17 02/03/20 04:41 BP 130/86 02/03/20 08:06 Pulse Ox 97 02/03/20 04:41 Weight - Most Recent: 59.194 kg I&O - Last 24 hours: Intake & Output 02/02/20 02/03/20 02/03/20 22:59 06:59 14:59 Intake Total 240 300 540 Output Total 800 Balance 240 -500 540 Lab Results - Last 24 hrs: Laboratory Results - last 24 hr 02/02/20 02/03/20 02/03/20 Range/Units 14:58 07:27 07:27 WBC 12.5 H (4.0-10.0) x10^3/uL RBC 4.70 (4.5-6.0) x10^6/uL Hgb 13.1 L (14.0-18.0) g/dL Hct 41.3 (40.0-52.0) % MCV 87.9 (78.0-93.0) fL MCH 27.9 (26.0-32.0) pg MCHC 31.7 L (32.0-36.0) g/dL RDW Coeff of Reuben 14.0 (10.0-15.0) % Plt Count 335 (130-400) x10^3/uL Neut % (Auto) 82.3 H (50.0-80.0) % Lymph % (Auto) 9.9 L (25.0-50.0) % [place] % (Auto) 5.5 (2.0-11.0) % Eos % (Auto) 1.7 (0.0-4.0) % Baso % (Auto) 0.6 (0.2-1.2) % Sodium 141 (136-145) mmol/L Potassium 4.5 D 3.9 (3.5-5.1) mmol/L Chloride 99 (98-107) mmol/L Carbon Dioxide 36 H (21-32) mmol/L BUN 18 (7-18) mg/dL Creatinine 1.0 (0.70-1.30) mg/dL Est Cr Clr Drug Dosing 41.44 mL/min Estimated GFR (MDRD) > 60 Glucose 103 (74-106) mg/dL Calcium 9.5 (8.5-10.1) mg/dL Corrected Calcium 10.30 H (8.5-10.1) mg/dL Phosphorus 3.0 (2.6-4.7) mg/dL Magnesium 1.7 L (1.8-2.4) mg/dL Albumin 3.0 L (3.4-5.0) g/dL Med Orders - Current: Current Medications Acetaminophen (Tylenol) 650 mg PO Q4H PRN PRN Reason: Pain (Mild 1-3)/fever Last Admin: 02/02/20 19:25 Dose: 650 mg Documented by: Hydrocodone Bitart/Acetaminophen ([place] 325-10 Mg) 1 tab PO Q6H PRN PRN Reason: Pain (severe 7-10) Last Admin: 02/03/20 08:07 Dose: 1 tab Documented by: Aspirin (Aspirin) 81 mg PO DAILY [facility] Last Admin: 02/03/20 08:06 Dose: 81 mg Documented by: Calcium Carbonate (Calcium Carbonate/Vitamin D 1250 Mg-200 Unit) 1 tab PO BID [facility] Last Admin: 02/03/20 08:06 Dose: 1 tab Documented by: Calcium Carbonate/Glycine (Tums Extra Strength) 750 mg PO ASDIRECTED PRN PRN Reason: Heartburn Cholecalciferol (Vitamin D3) 10 mcg PO DAILY [facility] Last Admin: 02/03/20 08:06 Dose: 10 mcg Documented by: Duloxetine HCl (Cymbalta) 30 mg PO DAILY [facility] Last Admin: 02/03/20 08:06 Dose: 30 mg Documented by: Ferrous Sulfate (Ferrous Sulfate) 325 mg PO DAILY [facility] Last Admin: 02/03/20 08:06 Dose: 325 mg Documented by: Furosemide (Lasix) 40 mg PO DAILY [facility] Last Admin: 02/03/20 08:06 Dose: 40 mg Documented by: Hydromorphone HCl (Dilaudid) 0.25 mg IVPUSH Q2H PRN PRN Reason: Pain (severe 7-10) Last Admin: 01/31/20 23:56 Dose: 0.25 mg Documented by: Lovastatin (Mevacor) 20 mg PO BEDTIME [facility] Last Admin: 02/02/20 19:25 Dose: 20 mg Documented by: Magnesium Hydroxide (Milk Of Magnesia) 30 ml PO DAILY PRN PRN Reason: Constipation Magnesium Oxide (Magnesium Oxide) 400 mg PO DAILY [facility] Last Admin: 02/03/20 08:08 Dose: 400 mg Documented by: Metoprolol Succinate (Toprol Xl) 25 mg PO DAILY [facility] Last Admin: 02/03/20 08:06 Dose: 25 mg Documented by: Multivitamins/Minerals (Thera M Plus) 1 tab PO DAILY [facility] Last Admin: 02/03/20 08:06 Dose: 1 tab Documented by: Teriparatide [Forteo ] 20mcg/0.8ml Injector 0 ml SQ DAILY [facility] Last Admin: 02/03/20 08:23 Dose: 0.8 ml Documented by: Omeprazole (Omeprazole) 20 mg PO ACBREAKFAST [facility] Last Admin: 02/03/20 06:23 Dose: 20 mg Documented by: Ondansetron HCl (Zofran) 4 mg IV Q6H PRN PRN Reason: Nausea/Vomiting Prednisone (Prednisone) 3 mg PO TuWeThFr@0900 [facility] Last Admin: 02/03/20 08:05 Dose: 3 mg Documented by: Prednisone (Prednisone) 5 mg PO SuMoSa@0900 [facility] Sodium Chloride (Saline Flush) 10 ml FLUSH ASDIRECTED PRN PRN Reason: Keep Vein Open Last Admin: 02/02/20 19:26 Dose: 10 ml Documented by: Temazepam (Restoril) 15 mg PO BEDTIME PRN PRN Reason: Sleep Warfarin Sodium (Coumadin) 2.5 mg PO DAILY [facility] Last Admin: 02/03/20 08:06 Dose: 2.5 mg Documented by: Discontinued Medications Citalopram Hydrobromide (Celexa) 20 mg PO DAILY [facility] Citalopram Hydrobromide (Celexa) 10 mg PO DAILY [facility] Duloxetine HCl (Cymbalta) 60 mg PO DAILY [facility] Last Admin: 02/01/20 07:35 Dose: 60 mg Documented by: Enoxaparin Sodium (Lovenox) 40 mg SUBCUT ONETIME ONE Stop: 02/02/20 10:46 Last Admin: 02/02/20 10:57 Dose: 40 mg Documented by: Furosemide (Lasix) 40 mg IV ONETIME ONE Stop: 02/01/20 17:49 Last Admin: 02/01/20 18:55 Dose: Not Given Documented by: Furosemide (Lasix) 20 mg IVPUSH ONETIME ONE Stop: 02/01/20 18:01 Last Admin: 02/01/20 18:15 Dose: 20 mg Documented by: Hydrochlorothiazide (Hydrochlorothiazide) 25 mg PO DAILY [facility] Last Admin: 02/01/20 07:35 Dose: 25 mg Documented by: Hydromorphone HCl (Dilaudid) 0.25 mg IVPUSH Q2H PRN PRN Reason: Pain (severe 7-10) Iopamidol (Isovue-300 (61%)) 100 ml IVPUSH ONETIME ONE Stop: 02/01/20 10:33 Last Admin: 02/01/20 11:43 Dose: Not Given Documented by: Metoprolol Tartrate (Lopressor) 2.5 mg IVPUSH ONETIME ONE Stop: 02/02/20 11:11 Last Admin: 02/02/20 11:22 Dose: 2.5 mg Documented by: Potassium Chloride (Klor-Con 10) 40 meq PO BIDMEALS [facility] Stop: 02/03/20 00:04 Last Admin: 02/02/20 17:47 Dose: 40 meq Documented by: Potassium Chloride (Klor-Con M20) 40 meq PO ONETIME ONE Stop: 02/02/20 09:31 Last Admin: 02/02/20 09:29 Dose: 40 meq Documented by: Prednisone (Prednisone) 4 mg PO Q3D [facility] Last Admin: 01/31/20 23:20 Dose: Not Given Documented by: Warfarin Sodium (Coumadin) 2.5 mg PO ONETIME ONE Stop: 02/02/20 12:01 Last Admin: 02/02/20 11:27 Dose: 2.5 mg Documented by: - Exam General: Reports: Alert, Oriented, Cooperative, No Acute Distress HEENT: Reports: EOMI, Mucous Membr. Moist/[place] Neck: Reports: Supple Lungs: Reports: Normal Respiratory Effort, Crackles (fine, appreciated in the bases) Cardiovascular: Reports: Regular Rate, Irregular Rhythm GI/Abdominal Exam: Normal Bowel Sounds, Soft, Non-Tender Back Exam: Reports: Normal Inspection (no sacral edema) Extremities: Normal Inspection (no pedal edema) Skin: Reports: Warm, Dry, Intact Psy/Mental Status: Reports: Alert, Normal Affect, Normal Mood
[2020-02-04] MEDS ORDERED: predniSONE 5 MG Tab PO SCH (09:00)
== END 2020-02-03 10:30 | disposition home or self-care (01) | DRG 292 ==
LOC: UNDOADMIN 06:55 → VM.MS 06:55
PROVIDERS: ADMIT Family Medicine; ATTEND Internal Medicine
DX: I11.0 Hypertensive heart disease with heart failure (principal); R04.2 Hemoptysis; I50.33 Acute on chronic diastolic (congestive) heart failure; I48.91 Unspecified atrial fibrillation; J44.9 Chronic obstructive pulmonary disease, unspecified; M35.3 Polymyalgia rheumatica; I25.10 Atherosclerotic heart disease of native coronary artery without angina pectoris; E78.00 Pure hypercholesterolemia, unspecified; I73.9 Peripheral vascular disease, unspecified; G47.30 Sleep apnea, unspecified; K21.9 Gastro-esophageal reflux disease without esophagitis; M19.90 Unspecified osteoarthritis, unspecified site; M70.60 Trochanteric bursitis, unspecified hip; F32.9 Major depressive disorder, single episode, unspecified; D64.9 Anemia, unspecified; E87.6 Hypokalemia; R63.4 Abnormal weight loss; G89.29 Other chronic pain; M81.0 Age-related osteoporosis without current pathological fracture; G47.00 Insomnia, unspecified; E78.5 Hyperlipidemia, unspecified; Z79.899 Other long term (current) drug therapy; Z79.52 Long term (current) use of systemic steroids; Z79.01 Long term (current) use of anticoagulants; Z95.1 Presence of aortocoronary bypass graft; Z88.6 Allergy status to analgesic agent; Z88.8 Allergy status to other drugs, medicaments and biological substances; Z88.1 Allergy status to other antibiotic agents; I25.2 Old myocardial infarction; Z98.49 Cataract extraction status, unspecified eye; Z90.49 Acquired absence of other specified parts of digestive tract
CPT/HCPCS: 36415; 71046; 71260; 80048; 80069; 83735; 84132; 84484; 85025; 93005; 94760; 97161-GP; A9270-GY; J1170; J1650; J1940; J3490; J7512

== ENCOUNTER 2020-03-18 20:39 | Emergency (ER) | payer MEDICARE, OTHER ==
[2020-03-18 20:54] VITALS: BP 151/92; PULSE 90
[2020-03-18] MEDS ORDERED: Sodium Chloride 0.9% 10 ML Syringe FLUSH PRN (20:55)
[2020-03-18 21:24] LABS: PTT,PARTIAL THROMBOPLSTIN TIME 40.5 SEC (25.6-32.8)
[2020-03-18 21:43] LABS: CHLORIDE,CL 103 mmol/L (98-107); SODIUM,NA 139 mmol/L (136-145)
[2020-03-18 21:44] LABS: ANION GAP 10.2 mmol/L (10-20)
[2020-03-18] MEDS ORDERED: Aspirin 81 MG Tab.Chew PO ONE (21:54)
[2020-03-18] MEDS ORDERED: Furosemide 40 MG/4 ML VIAL IV ONE (22:13)
[2020-03-18] MEDS ORDERED: cefTRIAXone 1 GM Vial IVPUSH ONE (22:18)
[2020-03-18] MEDS ORDERED: Azithromycin 500 MG in Sodium Chloride 0.9% 250 ML IV ONE (22:18)
[2020-03-18] MEDS ORDERED: Azithromycin 250 MG Tab PO ONE (22:51)
--- NOTE | 2020-03-18 22:57 | EDM.PDOC ---
ED HPI GENERAL MEDICAL PROBLEM - General Chief Complaint: Cardiovascular Problem Stated Complaint: COUGHING BLOOD Time Seen by Provider: 03/18/20 20:50 Source of Information: Reports: Patient History Limitations: Reports: No Limitations - History of Present Illness INITIAL COMMENTS - FREE TEXT/NARRATIVE: Patient comes emergency department today with his with concerns of coughing up blood and shortness of breath. Over the past couple of days the patient has had increasing shortness of breath it has been difficult for him to sleep at night and he came in today because he did not want to have another night without sleep. He has had no pain in his chest. No fever no chills. No cough or congestion. No abdominal pain nausea or vomiting. No weakness dizziness lighth eadedness. 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 He is otherwise taking the rest of his medications appropriately. No COVID exposure COVID concerns. Chest Pain Score (Numeric/FACES): 7 - Related Data Allergies Allergy/AdvReac Type Severity Reaction Status Date / Time aspirin AdvReac Bleeding Verified 03/18/20 21:35 benazepril HCl AdvReac Nausea and Verified 03/18/20 21:35 [From Lotensin] Vomiting celecoxib [From Celebrex] AdvReac Nausea and Verified 03/18/20 21:35 Vomiting cetirizine HCl AdvReac Drowsiness Verified 03/18/20 21:35 [From Zyrtec-D] pseudoephedrine HCl AdvReac Drowsiness Verified 03/18/20 21:35 [From Zyrtec-D] Home Meds: Home Meds Calcium Carbonate [Tums] 1 tab PO ASDIRECTED PRN 05/23/15 [History] Calcium Carbonate/Vitamin D3 [Calcium 600 + Vit D Tablet] 1 tab PO BID 05/23/15 [History] Lovastatin 20 mg PO BEDTIME 05/23/15 [History] Magnesium Hydroxide [Milk of Magnesia] 30 ml PO DAILY PRN 05/23/15 [History] Multivitamin with Minerals [Multivitamins with Minerals] 1 tab PO DAILY 05/23/15 [History] Omeprazole [Prilosec] 20 mg PO DAILY 05/23/15 [History] predniSONE [Prednisone] 5 mg PO ASDIRECTED 05/23/15 [History] Hydrocodone/Acetaminophen [Hydrocodone-Acetamin 10-325 mg] 1 tab PO Q4HR PRN 10/13/17 [History] predniSONE [Prednisone] 3 mg PO ASDIRECTED 10/13/17 [History] Cholecalciferol (Vitamin D3) [Vitamin D3] 400 unit PO DAILY 01/31/20 [History] Ferrous Sulfate 325 mg PO DAILY 90 Days #30 tablet 02/03/20 [Rx] Furosemide [Lasix] 40 mg PO DAILY 90 Days #30 tablet 02/03/20 [Rx] Magnesium Oxide 400 mg PO DAILY 5 Days #5 tablet 02/03/20 [Rx] Metoprolol Succinate [Toprol XL] 25 mg PO DAILY 360 Days #30 tab.er 02/03/20 [Rx] Warfarin [Coumadin] 2.5 mg PO DAILY 90 Days #30 tablet 02/03/20 [Rx] Citalopram [Citalopram HBr] 20 mg PO DAILY 03/18/20 [History] Past Medical History HEENT History: Reports: Allergic Rhinitis Cardiovascular History: Reports: CAD, Heart Murmur, High Cholesterol, Hypertension, [place], PVD, Other (See Below) Other Cardiovascular History: HOLOSYSTOLIC MURMUR, atherosclerosis Respiratory History: Reports: COPD, Sleep Apnea Gastrointestinal History: Reports: GERD, Other (See Below) Other Gastrointestinal History: HX OF SMALL BOWEL OBSTRUCTION, ulcers Other Genitourinary History: TESTOSTERONE DEF, Musculoskeletal History: Reports: Fracture, Osteoarthritis Other Musculoskeletal History: DJD, TROCHANTERIC BURSITIS Other Neuro History: HERPES SIMPLEX LABIALIS Psychiatric History: Reports: Depression Hematologic History: Reports: Anemia - Past Surgical History HEENT Surgical History: Reports: Cataract Surgery Cardiovascular Surgical History: Reports: Coronary Artery Bypass Respiratory Surgical History: Reports: None GI Surgical History: Reports: Cholecystectomy, Colon, Colonoscopy Other GI Surgeries/Procedures: VENTRAL HERNIA Male Surgical History: Reports: None Musculoskeletal Surgical History: Reports: Joint Replacement, Other (See Below) Other Musculoskeletal Surgeries/Procedures:: POLYMYALGIA RHEUMATICA, shoulder injection, left hip nailing Social & Family History - Family History Family Medical History: Noncontributory - Tobacco Use Smoking Status *Q: Unknown Ever Smoked - Caffeine Use Caffeine Use: Reports: Coffee, Soda ED ROS GENERAL - Review of Systems Review Of Systems: Comprehensive ROS is negative, except as noted in HPI. ED EXAM, GENERAL - Physical Exam Exam: See Below Exam Limited By: No Limitations General Appearance: Alert, WD/WN, No Apparent Distress Ears: Normal External Exam Nose: Normal Inspection Throat/Mouth: Normal Inspection Head: Atraumatic, Normocephalic Neck: Normal Inspection, Supple Respiratory/Chest: No Respiratory Distress, Normal Breath Sounds, No Accessory Muscle Use, Crackles (Fine inspiratory crackles upon opening bilaterally) Cardiovascular: Normal Peripheral Pulses, Regular Rate, Rhythm GI/Abdominal: Normal Bowel Sounds, Soft, Non-Tender (Male) Exam: Deferred Rectal (Males) Exam: Deferred Back Exam: Normal Inspection, Full Range of Motion Extremities: Normal Inspection, Normal Range of Motion, Normal Capillary Refill Neurological: Alert, Oriented, Normal Cognition, No Motor/Sensory Deficits Psychiatric: Normal Affect, Normal Mood Skin Exam: Warm, Dry, Intact, Normal Color, No Rash EKG INTERPRETATION EKG Date: 03/18/20 Time: 20:55 Rhythm: NSR Rate (Beats/Min): 81 [place]: Normal P-Wave: Present QRS: LBBB ST-T: Normal QT: Normal Comparison: No Change Course - Vital Signs Last Recorded V/S: Last Vital Signs Temp 99.2 F 03/18/20 20:43 Pulse 90 03/18/20 20:43 Resp 18 03/18/20 20:43 BP 151/92 H 03/18/20 20:43 Pulse Ox 93 L 03/18/20 20:43 - Orders/Labs/Meds Orders: Active Orders 24 hr Category Date Time Status Chest 2V [CR] Urgent Exams 03/18/20 20:55 Taken CULTURE BLOOD [BC] Stat Lab 03/18/20 22:30 Received CULTURE BLOOD [BC] Stat Lab 03/18/20 22:34 Received Blood Culture x2 Reflex Set [OM.PC] Stat Oth 03/18/20 22:22 Ordered Peripheral IV Insertion Adult [OM.PC] Stat Oth 03/18/20 20:55 Ordered Labs: Laboratory Tests 03/18/20 03/18/20 03/18/20 Range/Units 21:03 21:03 21:03 WBC 13.9 H (4.0-10.0) x10^3/uL RBC 4.02 L (4.5-6.0) x10^6/uL Hgb 11.0 L D (14.0-18.0) g/dL Hct 35.3 L (40.0-52.0) % MCV 87.8 (78.0-93.0) fL MCH 27.4 (26.0-32.0) pg MCHC 31.2 L (32.0-36.0) g/dL RDW Coeff of Reuben 14.1 (10.0-15.0) % Plt Count 277 (130-400) x10^3/uL Neut % (Auto) 86.9 H (50.0-80.0) % Lymph % (Auto) 5.4 L (25.0-50.0) % [place] % (Auto) 6.6 (2.0-11.0) % Eos % (Auto) 0.9 (0.0-4.0) % Baso % (Auto) 0.2 (0.2-1.2) % PT 17.6 H (9.5-12.3) SEC INR 1.7 L (2.0-3.5) APTT 40.5 H (25.6-32.8) SEC Sodium 139 (136-145) mmol/L Potassium 4.2 (3.5-5.1) mmol/L Chloride 103 (98-107) mmol/L Carbon Dioxide 30 (21-32) mmol/L Anion Gap 10.2 (10-20) mmol/L BUN 15 (7-18) mg/dL Creatinine 0.9 (0.70-1.30) mg/dL Est Cr Clr Drug Dosing TNP Estimated GFR (MDRD) > 60 Glucose 118 H (74-106) mg/dL Calcium 8.8 (8.5-10.1) mg/dL Corrected Calcium 9.84 (8.5-10.1) mg/dL Total Bilirubin 0.4 (0.2-1.0) mg/dL AST 21 (15-37) U/L ALT 15 L (16-63) U/L Alkaline Phosphatase 126 H (46-116) U/L Troponin I 0.094 H* (<=0.056) ng/mL C-Reactive Protein (<=0.9) mg/dL NT-Pro-B Natriuret Pep (<=450) pg/mL Total Protein 7.1 (6.4-8.2) g/dL Albumin 2.7 L (3.4-5.0) g/dL Globulin 4.4 Albumin/Globulin Ratio 0.61 COVID-19 (GILBERTO) (NEGATIVE) 03/18/20 03/18/20 03/18/20 Range/Units 21:03 22:30 23:10 WBC (4.0-10.0) x10^3/uL RBC (4.5-6.0) x10^6/uL Hgb (14.0-18.0) g/dL Hct (40.0-52.0) % MCV (78.0-93.0) fL MCH (26.0-32.0) pg MCHC (32.0-36.0) g/dL RDW Coeff of Reuben (10.0-15.0) % Plt Count (130-400) x10^3/uL Neut % (Auto) (50.0-80.0) % Lymph % (Auto) (25.0-50.0) % [place] % (Auto) (2.0-11.0) % Eos % (Auto) (0.0-4.0) % Baso % (Auto) (0.2-1.2) % PT (9.5-12.3) SEC INR (2.0-3.5) APTT (25.6-32.8) SEC Sodium (136-145) mmol/L Potassium (3.5-5.1) mmol/L Chloride (98-107) mmol/L Carbon Dioxide (21-32) mmol/L Anion Gap (10-20) mmol/L BUN (7-18) mg/dL Creatinine (0.70-1.30) mg/dL Est Cr Clr Drug Dosing Estimated GFR (MDRD) Glucose (74-106) mg/dL Calcium (8.5-10.1) mg/dL Corrected Calcium (8.5-10.1) mg/dL Total Bilirubin (0.2-1.0) mg/dL AST (15-37) U/L ALT (16-63) U/L Alkaline Phosphatase (46-116) U/L Troponin I (<=0.056) ng/mL C-Reactive Protein 21.5 H (<=0.9) mg/dL NT-Pro-B Natriuret Pep 22053 H (<=450) pg/mL Total Protein (6.4-8.2) g/dL Albumin (3.4-5.0) g/dL Globulin Albumin/Globulin Ratio COVID-19 (GILBERTO) Negative (NEGATIVE) Meds: Medications Discontinued Medications Generic Name Dose Route Start Last Admin Trade Name Freq PRN Reason Stop Dose Admin Aspirin 324 mg 03/18/20 21:54 03/18/20 21:47 Aspirin PO 03/18/20 21:55 324 mg ONETIME ONE Administration Azithromycin 500 mg 03/18/20 22:51 03/18/20 23:03 Zithromax PO 03/18/20 22:52 500 mg ONETIME ONE Administration Ceftriaxone Sodium 1 gm 03/18/20 22:18 03/18/20 22:49 Rocephin IVPUSH 03/18/20 22:19 1 gm STAT ONE Administration Furosemide 40 mg 03/18/20 22:13 03/18/20 22:46 Lasix IV 03/18/20 22:14 40 mg ONETIME ONE Administration Azithromycin 500 mg/ Sodium 250 mls @ 250 mls/hr 03/18/20 22:18 Chloride IV 03/18/20 23:17 STAT ONE Sodium Chloride 10 ml 03/18/20 20:55 Saline Flush FLUSH ASDIRECTED PRN Keep Vein Open - Radiology Interpretation Free Text/Narrative:: Chest x-ray per radiology shows left upper lobe infiltrate bilateral airspace disease is noted. When I reviewed the chest x-ray it is clear that he has some pulmonary vascular congestion as well. Departure - Departure Time of Disposition: 22:56 Disposition: DC/Tfer to [facility] 02 Reason for Transfer *Q: Other Clinical Impression: NSTEMI (non-ST elevated myocardial infarction) CHF (congestive heart failure) Qualifiers: Heart failure type: unspecified Heart failure chronicity: acute on chronic Qualified Code(s): I50.9 - Heart failure, unspecified Pneumonia Qualifiers: Pneumonia type: due to unspecified organism Laterality: left Lung location: upper lobe of lung Qualified Code(s): J18.9 - Pneumonia, unspecified organism Referrals: Patricia Alfonso DO [Primary Care Provider] - Forms: ED Department Discharge, Interfacility Transfer [facility] Sepsis Event Note (ED) - Evaluation Sepsis Screening Result: No Definite Risk - Focused Exam Vital Signs: Vital Signs Temp Pulse Resp BP Pulse Ox 03/18/20 20:43 99.2 F 90 18 151/92 H 93 L - My Orders Last 24 Hours: My Active Orders 03/18/20 20:55 Chest 2V [CR] Urgent Peripheral IV Insertion Adult [OM.PC] Stat 03/18/20 22:22 Blood Culture x2 Reflex Set [OM.PC] Stat 03/18/20 22:30 CULTURE BLOOD [BC] Stat 03/18/20 22:34 CULTURE BLOOD [BC] Stat - Assessment/Plan Last 24 Hours: My Active Orders 03/18/20 20:55 Chest 2V [CR] Urgent Peripheral IV Insertion Adult [OM.PC] Stat 03/18/20 22:22 Blood Culture x2 Reflex Set [OM.PC] Stat 03/18/20 22:30 CULTURE BLOOD [BC] Stat 03/18/20 22:34 CULTURE BLOOD [BC] Stat
--- NOTE | 2020-03-19 07:43 | CR ---
[id number] RAD/RAD Chest PA And Lateral EXAM: FRONTAL AND LATERAL CHEST INDICATION: CHEST PAIN, SOB COMPARISON: February 02, 2020. DISCUSSION: Development of mild to moderate infiltrates throughout the left lung most pronounced in the left upper lobe. Bibasilar atelectasis and possible mild early right base infiltrates. Borderline heart size without evidence of congestive heart failure. Small hiatus hernia. Sternotomy. Possible small bilateral effusions. Accentuated thoracic kyphosis. IMPRESSION: 1. Mild to moderate infiltrates throughout the left lung. 2. Mild right base atelectasis and possible early infiltrates. Edgar Nichols MD 03/19/20 0741 Thank you for allowing us to participate in the care of your patient.
== END 2020-03-18 23:40 | disposition short-term general hospital (02) ==
LOC: VM.ED 20:39
DX: I21.4 Non-ST elevation (NSTEMI) myocardial infarction (principal); J18.9 Pneumonia, unspecified organism; I11.0 Hypertensive heart disease with heart failure; I50.9 Heart failure, unspecified; E78.00 Pure hypercholesterolemia, unspecified; I25.10 Atherosclerotic heart disease of native coronary artery without angina pectoris; I25.2 Old myocardial infarction; J44.9 Chronic obstructive pulmonary disease, unspecified; K21.9 Gastro-esophageal reflux disease without esophagitis; F32.9 Major depressive disorder, single episode, unspecified; D64.9 Anemia, unspecified; Z79.899 Other long term (current) drug therapy; Z88.6 Allergy status to analgesic agent; Z88.1 Allergy status to other antibiotic agents; Z88.8 Allergy status to other drugs, medicaments and biological substances; Z79.01 Long term (current) use of anticoagulants; Z20.828 Contact with and (suspected) exposure to other viral communicable diseases
CPT/HCPCS: 36415; 71046; 80053; 83880; 84484; 85025; 85610; 85730; 86140; 87040; 93005; 93010; 96374; 96375; 99284; 99285-25; A9270-GY; J0696; J1940; U0002

== ENCOUNTER 2020-05-03 13:25 | Inpatient (IN) | payer MEDICARE, OTHER ==
--- NOTE | 2020-05-03 13:52 | EDM.PDOC ---
ED HPI GENERAL MEDICAL PROBLEM - General Chief Complaint: General Stated Complaint: dizzy vison changes Time Seen by Provider: 05/03/20 13:30 Source of Information: Reports: Patient History Limitations: Reports: No Limitations - History of Present Illness INITIAL COMMENTS - FREE TEXT/NARRATIVE: Patient comes into the emergency department from the clinic with complaints of dizziness and change in vision. Patient states this started approximately 2 weeks ago. Patient states that he notices he becomes dizzy and has visual changes with fast-moving objects or if he is bending down or standing up quickly. Patient is in the process of moving and has noticed that trying to lift up boxes and move items if he moves too quickly he becomes extremely dizzy and lightheaded and change in vision. Patient also is getting dizzy while driving he does need to cover one eye in order to see objects more clearly and not to be as dizzy. He does endorse becoming shortness of breath with activity which is a normal finding for him. He has noticed while moving the past couple days he does get "winded" a bit sooner than usual. Patient denies any chest pain, headache, nausea, vomiting, GI upset, or peripheral edema. Patient states he has felt relatively healthy and has no other major concerns or complaints. Onset: Gradual Quality: Reports: Other Severity: Mild Improves with: Reports: None Worsens with: Reports: None Associated Symptoms: Reports: No Other Symptoms - Related Data Allergies Allergy/AdvReac Type Severity Reaction Status Date / Time aspirin AdvReac Bleeding Verified 05/03/20 13:41 benazepril HCl AdvReac Nausea and Verified 05/03/20 13:41 [From Lotensin] Vomiting celecoxib [From Celebrex] AdvReac Nausea and Verified 05/03/20 13:41 Vomiting cetirizine HCl AdvReac Drowsiness Verified 05/03/20 13:41 [From Zyrtec-D] pseudoephedrine HCl AdvReac Drowsiness Verified 05/03/20 13:41 [From Zyrtec-D] Home Meds: Home Meds Calcium Carbonate [Tums] 1 tab PO ASDIRECTED PRN 05/23/15 [History] Calcium Carbonate/Vitamin D3 [Calcium 600 + Vit D Tablet] 1 tab PO BID 05/23/15 [History] Lovastatin 20 mg PO BEDTIME 05/23/15 [History] Magnesium Hydroxide [Milk of Magnesia] 30 ml PO DAILY PRN 05/23/15 [History] Multivitamin with Minerals [Multivitamins with Minerals] 1 tab PO DAILY 05/23/15 [History] Omeprazole [Prilosec] 20 mg PO DAILY 05/23/15 [History] predniSONE [Prednisone] 5 mg PO ASDIRECTED 05/23/15 [History] Hydrocodone/Acetaminophen [Hydrocodone-Acetamin 10-325 mg] 1 tab PO Q4HR PRN 10/13/17 [History] predniSONE [Prednisone] 3 mg PO ASDIRECTED 10/13/17 [History] Cholecalciferol (Vitamin D3) [Vitamin D3] 400 unit PO DAILY 01/31/20 [History] Ferrous Sulfate 325 mg PO DAILY 90 Days #30 tablet 02/03/20 [Rx] Furosemide [Lasix] 40 mg PO DAILY 90 Days #30 tablet 02/03/20 [Rx] Magnesium Oxide 400 mg PO DAILY 5 Days #5 tablet 02/03/20 [Rx] Metoprolol Succinate [Toprol XL] 25 mg PO DAILY 360 Days #30 tab.er 02/03/20 [Rx] Warfarin [Coumadin] 2.5 mg PO DAILY 90 Days #30 tablet 02/03/20 [Rx] Citalopram [Citalopram HBr] 20 mg PO DAILY 03/18/20 [History] Past Medical History HEENT History: Reports: Allergic Rhinitis Cardiovascular History: Reports: CAD, Heart Murmur, High Cholesterol, Hypertension, [place], PVD, Other (See Below) Other Cardiovascular History: HOLOSYSTOLIC MURMUR, atherosclerosis Respiratory History: Reports: COPD, Sleep Apnea Gastrointestinal History: Reports: GERD, Other (See Below) Other Gastrointestinal History: HX OF SMALL BOWEL OBSTRUCTION, ulcers Other Genitourinary History: TESTOSTERONE DEF, Musculoskeletal History: Reports: Fracture, Osteoarthritis Other Musculoskeletal History: DJD, TROCHANTERIC BURSITIS Other Neuro History: HERPES SIMPLEX LABIALIS Psychiatric History: Reports: Depression Hematologic History: Reports: Anemia - Past Surgical History HEENT Surgical History: Reports: Cataract Surgery Cardiovascular Surgical History: Reports: Coronary Artery Bypass Respiratory Surgical History: Reports: None GI Surgical History: Reports: Cholecystectomy, Colon, Colonoscopy Other GI Surgeries/Procedures: VENTRAL HERNIA Male Surgical History: Reports: None Musculoskeletal Surgical History: Reports: Joint Replacement, Other (See Below) Other Musculoskeletal Surgeries/Procedures:: POLYMYALGIA RHEUMATICA, shoulder injection, left hip nailing Social & Family History - Family History Family Medical History: Noncontributory - Caffeine Use Caffeine Use: Reports: Coffee, Soda ED ROS GENERAL - Review of Systems Review Of Systems: Comprehensive ROS is negative, except as noted in HPI. Constitutional: Reports: No Symptoms HEENT: Reports: No Symptoms Respiratory: Reports: No Symptoms Cardiovascular: Reports: No Symptoms Endocrine: Reports: No Symptoms GI/Abdominal: Reports: No Symptoms : Reports: No Symptoms Musculoskeletal: Reports: No Symptoms Skin: Reports: No Symptoms Neurological: Reports: No Symptoms Psychiatric: Reports: No Symptoms Hematologic/Lymphatic: Reports: No Symptoms Immunologic: Reports: No Symptoms ED EXAM, GENERAL - Physical Exam Exam: See Below Exam Limited By: No Limitations General Appearance: Alert, WD/WN, No Apparent Distress Eye Exam: Bilateral Eye: EOMI Head: Atraumatic, Normocephalic Neck: Normal Inspection, Supple, Non-Tender, Full Range of Motion Respiratory/Chest: No Respiratory Distress, Lungs Clear, Normal Breath Sounds, No Accessory Muscle Use, Chest Non-Tender Cardiovascular: Normal Peripheral Pulses, Regular Rate, Rhythm, No Rub Peripheral Pulses: 4+: Radial (L), Radial (R) Back Exam: Normal Inspection, Full Range of Motion Extremities: Normal Inspection, Normal Range of Motion, Non-Tender, No Pedal Edema, Normal Capillary Refill, Pedal Edema Neurological: Alert, Oriented, CN II-XII Intact, Normal Gait Psychiatric: Normal Affect, Normal Mood Skin Exam: Warm, Dry, Intact, Normal Color, No Rash Course - Vital Signs Last Recorded V/S: Last Vital Signs Temp 36.4 C 05/03/20 13:27 Pulse 87 05/03/20 13:27 Resp 18 05/03/20 13:27 BP 147/75 H 05/03/20 13:27 Pulse Ox - Orders/Labs/Meds Orders: Active Orders 24 hr Category Date Time Status Admission Status [Patient Status] [ADT] Routine ADT 05/03/20 15:15 Ordered EKG Documentation Completion [RC] STAT Care 05/03/20 13:40 Active Sodium Chloride 0.9% [Saline Flush] Med 05/03/20 15:16 Ordered 10 ml FLUSH ASDIRECTED PRN Peripheral IV Insertion Adult [OM.PC] Stat Oth 05/03/20 15:16 Ordered Medication Orders Sodium Chloride (Saline Flush) 10 ml FLUSH ASDIRECTED PRN PRN Reason: Keep Vein Open Labs: Laboratory Tests 05/03/20 05/03/20 Range/Units 13:53 13:53 WBC 8.3 (4.0-10.0) x10^3/uL RBC 4.37 L (4.5-6.0) x10^6/uL Hgb 11.6 L (14.0-18.0) g/dL Hct 38.2 L (40.0-52.0) % MCV 87.4 (78.0-93.0) fL MCH 26.5 (26.0-32.0) pg MCHC 30.4 L (32.0-36.0) g/dL RDW Coeff of Reuben 15.9 H (10.0-15.0) % Plt Count 210 (130-400) x10^3/uL Neut % (Auto) 77.8 (50.0-80.0) % Lymph % (Auto) 13.9 L (25.0-50.0) % [place] % (Auto) 6.2 (2.0-11.0) % Eos % (Auto) 1.6 (0.0-4.0) % Baso % (Auto) 0.5 (0.2-1.2) % Sodium 141 (136-145) mmol/L Potassium 5.0 (3.5-5.1) mmol/L Chloride 101 (98-107) mmol/L Carbon Dioxide 32 (21-32) mmol/L Anion Gap 13.0 (10-20) mmol/L BUN 16 (7-18) mg/dL Creatinine 1.0 (0.70-1.30) mg/dL Est Cr Clr Drug Dosing TNP Estimated GFR (MDRD) > 60 Glucose 105 (74-106) mg/dL Calcium 9.3 (8.5-10.1) mg/dL Corrected Calcium 9.54 (8.5-10.1) mg/dL Total Bilirubin 0.3 (0.2-1.0) mg/dL AST 22 (15-37) U/L ALT 16 (16-63) U/L Alkaline Phosphatase 108 (46-116) U/L Troponin I 0.096 H* (<=0.056) ng/mL NT-Pro-B Natriuret Pep 09937 H (<=450) pg/mL Total Protein 7.6 (6.4-8.2) g/dL Albumin 3.7 (3.4-5.0) g/dL Globulin 3.9 Albumin/Globulin Ratio 0.95 Meds: Medications Generic Name Dose Route Start Last Admin Trade Name Freq PRN Reason Stop Dose Admin Sodium Chloride 10 ml 05/03/20 15:16 Saline Flush FLUSH ASDIRECTED PRN Keep Vein Open Discontinued Medications Generic Name Dose Route Start Last Admin Trade Name Freq PRN Reason Stop Dose Admin Furosemide 20 mg 05/03/20 15:16 Lasix IV 05/03/20 15:17 ONETIME ONE Departure - Departure Time of Disposition: 15:20 Disposition: Admitted As Inpatient 64 Condition: Good Clinical Impression: Dizzy CHF exacerbation Qualifiers: Heart failure type: unspecified Qualified Code(s): I50.9 - Heart failure, unspecified - Discharge Information *PRESCRIPTION DRUG MONITORING PROGRAM REVIEWED*: Not Applicable *COPY OF PRESCRIPTION DRUG MONITORING REPORT IN PATIENT RADHA: Not Applicable Forms: ED Department Discharge Sepsis Event Note (ED) - Evaluation Sepsis Screening Result: No Definite Risk - Focused Exam Vital Signs: Vital Signs Temp Pulse Resp BP 05/03/20 13:27 36.4 C 87 18 147/75 H - My Orders Last 24 Hours: My Active Orders 05/03/20 13:40 EKG Documentation Completion [RC] STAT 05/03/20 15:15 Admission Status [Patient Status] [ADT] Routine 05/03/20 15:16 Sodium Chloride 0.9% [Saline Flush] 10 ml FLUSH ASDIRECTED PRN Peripheral IV Insertion Adult [OM.PC] Stat - Assessment/Plan Last 24 Hours: My Active Orders 05/03/20 13:40 EKG Documentation Completion [RC] STAT 05/03/20 15:15 Admission Status [Patient Status] [ADT] Routine 05/03/20 15:16 Sodium Chloride 0.9% [Saline Flush] 10 ml FLUSH ASDIRECTED PRN Peripheral IV Insertion Adult [OM.PC] Stat Assessment:: 1. dizziness 2. blurry vision while driving 3. CHF exacerbation 4. hypodensity changes in the blank rule out stroke Plan: 1. Labs completed in the ER. Results reviewed with the patient 2. CT scan completed in the ER. Results reviewed with the patient 3. EKG completed in the ER. Results reviewed with the patient 4. IV initiated in the ER 5. Lasix 20mg IV given to the patient for fluid overload 6. Consultation completed with- Patricia Cool who will assume pt as acute care for CHF exacerbation and rule out stroke 7. Patient and nursing staff was updated regarding the plan of care 8. Patient and family are agreeable to the above plan of care 9. All questions and concerns were addressed with the patient and family prior to admit
[2020-05-03 14:37] LABS: CHLORIDE,CL 101 mmol/L (98-107); SODIUM,NA 141 mmol/L (136-145)
--- NOTE | 2020-05-03 14:55 | CT ---
[id number] CT/CT Head WO IV EXAM: NONCONTRAST HEAD CT INDICATION: DIZZY, VISION CHANGES 2 WEEKS. COMPARISON: None. DISCUSSION: There is a 12 mm area of apparent hypodensity within the left blank. This could represent an area of age-indeterminate ischemia, artifact or other pathology. Consider brain MRI with and without contrast. Moderate generalized atrophy and mild chronic small vessel ischemic changes. No acute hemorrhage, mass effect, midline shift or hydrocephalus. The orbits and paranasal sinuses are unremarkable. IMPRESSION: 1. Apparent 12 mm hypodensity in the left blank. This could represent an area of subacute to chronic ischemia or an artifact. Consider brain MRI with and without contrast for further characterization. Edgar Nichols MD 05/03/20 [id number] Thank you for allowing us to participate in the care of your patient.
[2020-05-03] MEDS ORDERED: Furosemide 20 MG/2 ML VIAL IV ONE (15:16)
[2020-05-03] MEDS ORDERED: Sodium Chloride 0.9% 10 ML Syringe FLUSH PRN (15:16)
[2020-05-03] MEDS ORDERED: Magnesium Hydroxide 400 MG/5 ML Susp 30 ML Cup PO PRN (16:34)
[2020-05-03] MEDS ORDERED: ALPRAZolam 0.25 MG Tab PO PRN (16:37)
[2020-05-03] MEDS ORDERED: predniSONE 5 MG Tab PO SCH (16:45)
--- NOTE | 2020-05-03 17:11 | CR ---
[id number] RAD/RAD Chest PA And Lateral EXAM: RAD Chest PA And Lateral INDICATION: CHEST PAIN. COMPARISON: Multiple priors, most recent from March 18, 2020. DISCUSSION: Scattered parenchymal opacities in both lungs. Findings include the bilateral lung bases as well as the left lung apex. Cardiomegaly and central vascular congestion. Those findings are similar to the prior examination. Lateral view demonstrates blunting of the posterior costophrenic sulci, nonspecific. Findings could represent small effusions or scarring. IMPRESSION: Scattered areas of patchy parenchymal opacification in both lungs. Correlate for signs of infection to exclude pneumonia. Differential diagnosis includes atelectasis and edema. Brice Nevarez MD 05/03/20 [id number] Thank you for allowing us to participate in the care of your patient.
[2020-05-03] MEDS ORDERED: Calcium Carbonate 750 MG Tab.Chew PO PRN (17:19)
[2020-05-03] MEDS ORDERED: Warfarin 2.5 MG Tab PO SCH (18:00)
[2020-05-03] MEDS ORDERED: Nitroglycerin 0.4 MG Tab.SL SL PRN (18:06)
[2020-05-03] MEDS: Acetaminophen/HYDROcodone 325-10 MG Tab PO PRN (18:50)
--- NOTE | 2020-05-03 19:44 | HP ---
HISTORY OF PRESENT ILLNESS: An 79-year-old seen today for dizziness and vision changes, which started about 2 weeks ago. The patient called the clinic. They directed him to the ER. He just overall was not feeling well. He was weaker generally, was having some chest discomfort, but not having shortness of breath or leg swelling. He has known heart failure. He is on Coumadin for atrial fibrillation, but INR has been subtherapeutic over the last couple of weeks. He did admit to the ER doctor he was winded. They gave him 20 mg of IV Lasix. He states now he is going to the bathroom frequently. He has a history of chronic hip pain from previous fracture. He lives at home with his and they are in the process of moving. The patient has been admitted to [facility] just a month ago and had an angiogram. The patient's saphenous vein graft to the right coronary artery did show a total occlusion, but no intervention was able to be performed. He has an EF of 30% with mitral regurgitation, which is moderate to severe. CT showed a 12 mm hypodensity in the left blank, possibly a subacute or chronic ischemia. MEDICATION LIST: Includes hydrocodone every 3 hours as needed for pain 10/325, Coumadin 5 mg alternating with 2.5 mg, Lasix 40 mg daily, Toprol 25 mg daily, Celexa sorry 20 mg daily, iron 325 daily, magnesium oxide 400 daily, prednisone 5 on Thursday, Thursday, and Thursday, prednisone 3 mg on Thursday, Thursday, , and Thursday, Prilosec 20 mg daily, Mevacor 20 mg daily, calcium and vitamin D 400 units daily, multivitamin daily, Tums, and milk of magnesia p.r.n. PAST MEDICAL HISTORY: Includes chronic systolic heart failure, EF 30%, coronary artery disease status post CABG, bilateral carotid artery stenosis less than 50%, chronic opioid use, mild COPD, depression, degenerative joint disease of the knees, cervical spine, hips, and shoulders, polymyalgia rheumatica, previous left hip fracture, and osteoporosis, completed Forteo. History of small bowel obstruction and partial resection, history of ventral hernia, heartburn, herpes simplex, hyperlipidemia, essential hypertension, impaired fasting glucose, iron deficiency anemia, lumbar disk disease, previous non ST-elevation MIs including in 03/2020, sleep apnea, paroxysmal AFib, peripheral vascular disease, previous cataracts, previous knee replacements, testosterone deficiency. PAST SURGICAL HISTORY: Surgically as above including bilateral knees, left hip nailing, right hernia repair, CABG around 1994, colon surgery for bowel obstruction, cholecystectomy. FAMILY HISTORY: Both parents are . He has brothers, 1 has heart disease. SOCIAL HISTORY: The patient is . He is a former smoker. He lives at home with his . They are moving to an apartment. He denies any alcohol. REVIEW OF SYSTEMS: General: The patient is unaware of any weight gain or swelling. He actually feels like he has been losing weight. Six months ago, he was around 12 pounds heavier. HEENT: No sore throat or trouble swallowing. Cardiac: No palpitations, but has noted some chest discomfort and windedness. Respiratory: No cough. GI: No abdominal pain, nausea, vomiting, or diarrhea. Musculoskeletal: He has chronic left hip pain. Neurologic: He has had vision changes, has not gotten any worse since they started 2 weeks ago. He felt unsteady. Otherwise, all systems reviewed and found to be negative unless otherwise stated. Physical exam: BP 156/85, 97.5, HR 87, HR 18, O2 97 2 L General: Cachectic Heart: Irregular with murmur Lungs: Decreased in the bases, no wheezing Abdomen: + BS, soft, and nontender Musculoskeletal: Trace edema to both ankles DIAGNOSTIC DATA: His chest x-ray does show some increased pulmonary congestion. Patchy infiltrations of the lungs are also noted. He has a history of pneumonia as well. Head CT again shows him to have a 12 mm hypodensity in the left blank. EKG is sinus rhythm. No acute ST changes. LABORATORY WORK: Does show that white count normal at 8.3, hemoglobin 11.6, platelets 210. INR 1.4. Sodium 141, potassium 5, chloride 101, bicarb 32, BUN 16, creatinine 1, glucose 105, calcium 9.5, magnesium 2.3, AST 22, ALT 16, alk phos 108, troponin 0.096. BNP 10,000. Albumin 3.7. ASSESSMENT: 1. Subacute stroke to the left blank. We will get him scheduled for carotid ultrasound. Likely source though was cardioembolic given his atrial fibrillation, heart failure, and subtherapeutic INR. I will give him a 325 dose of aspirin and give it daily. We will continue Coumadin and repeat an INR in the morning. 2. Dao-YB-oevvovnrc myocardial infarction with chest pain. We will have nitro available p.r.n. We will place him on telemetry. He will be on aspirin. He is on a statin and beta-joseph. 3. Atrial fibrillation with subtherapeutic INR. Will continue with Coumadin and monitor and make adjustments if needed. 4. Chronic pain and left hip pain. We will continue his opioids. 5. Palliative cares. 6. Iron deficiency anemia. He will be on iron. 7. Depression. We will continue Celexa. 8. Insomnia. He will have melatonin and p.r.n. Xanax. 9. Gastroesophageal reflux disease. He is on omeprazole. 10.Hyperlipidemia, on Zocor. 11.Acute on chronic systolic heart failure with EF 30% in 03/2020. 12.Coronary artery disease with recent myocardial infarction. PLAN: The patient will continue on acute cares with PT/OT eval. We will monitor lab work. We will hold off on further diuresis for now. We got 20 mg x1. MKA: 05/03/2020 18:07:17 MODL: 05/03/2020 19:38:08 /[id number] MTDD
[2020-05-03] MEDS ORDERED: Melatonin 3 MG Tab PO SCH (20:00)
[2020-05-03] MEDS ORDERED: Warfarin 5 MG Tab PO SCH (20:00)
[2020-05-03] MEDS ORDERED: Aspirin 325 MG Tab.EC PO SCH (20:00)
[2020-05-03] MEDS ORDERED: Simvastatin 10 MG Tab PO SCH (20:00)
[2020-05-04] MEDS: Acetaminophen/HYDROcodone 325-10 MG Tab PO PRN ×3 (01:08→10:53)
[2020-05-04] MEDS ORDERED: Omeprazole 20 MG Cap.CR PO SCH (07:00)
[2020-05-04 07:15] LABS: CHLORIDE,CL 95 mmol/L (98-107); SODIUM,NA 138 mmol/L (136-145)
[2020-05-04 07:16] LABS: ANION GAP 10.1 mmol/L (10-20)
[2020-05-04] MEDS ORDERED: Ferrous Sulfate 325 MG Tab PO SCH (08:00)
[2020-05-04] MEDS ORDERED: Magnesium Oxide 400 MG Tab PO SCH (08:00)
[2020-05-04] MEDS ORDERED: Metoprolol Succinate 25 MG Tab.ER PO SCH (08:00)
[2020-05-04] MEDS ORDERED: Citalopram 20 MG Tab PO SCH (08:00)
[2020-05-04] MEDS ORDERED: predniSONE 1 MG Tab PO SCH (09:00)
[2020-05-04] MEDS ORDERED: Apixaban 2.5 MG Tab PO SCH (12:00)
[2020-05-04 12:23] VITALS: BP 132/92; PULSE 99
[2020-05-04] MEDS ORDERED: FLU Vacc QV2020-21(65YR UP)/PF 240 MCG/0.7 ML Syringe IM ONE (13:30)
--- NOTE | 2020-05-04 21:20 | DISCH ---
PRIMARY DISCHARGE DIAGNOSES: 1. Concern for a subacute left pontine stroke with symptoms of dizziness and blurred vision. However, could also be a cerebellar stroke, outpatient MRI will be needed. 2. Mtz-XF-omvqlnrta myocardial infarction with known history of coronary artery disease, on medical management. 3. Acute systolic heart failure with known ejection fraction of 30%, diuresed with IV Lasix with resolved symptoms. 4. Atrial fibrillation with some rapid rates on telemetry when he is up moving around. Otherwise, all rates were controlled under 100. 5. Weight loss and palliative care. The patient does need a repeat lung CT in June. 6. Chronic pain due to left hip fracture. He is on opioids. 7. Depression. He is on an SSRI. 8. Subtherapeutic INR with history of INRs out of range since being started in January. 9. Iron-deficiency anemia, chronic. 10.Gastroesophageal reflux disease. 11.Insomnia. 12.Hyperlipidemia. REASON FOR ADMISSION: On the date of admission, this 79-year-old male who normally lives at home with his , called into the clinic, and due to his symptoms, he was directed to the ER, who was concerned about stroke, and a CT was performed. The patient's symptoms had been present for 2 weeks' time. Therefore, he was admitted for stroke workup, but MRI was not available until Thursday. Decision was discussed with Neurology who advised switching him over to Eliquis to provide better protection against further strokes. We did give him aspirin initially, continued his statin. He got the dose of IV Lasix, but did not require any further Lasix. The patient was able to be weaned off oxygen. He was doing quite well and requesting to be discharged home with his . Therefore, patient was discharged home and he will follow up with Dr. Alfonso in the clinic in 1 to 2 weeks. No lab work will be due at that time. He is going to have an MRI on Thursday. He will start on the Eliquis 2.5 mg twice daily. Troponin trended down to 0.086 from 0.096, and his proBNP was 10,000. PHYSICAL EXAMINATION: Vital Signs: Discharge vitals do include a temperature 97.8, weight 60.3 kg, pulse 74, pulse ox 99%, respiratory rate 16, and blood pressure 132/92. General: He is in no acute distress. Heart: Regularly irregular with murmur noted. Lungs: Sounds are clear to auscultation bilaterally without crackles or wheezes. Extremities: Warm and dry, no edema. Mental Status: Alert and orientated x3. DISCHARGE PLANS AND INSTRUCTIONS: He will follow up with Dr. Alfonso in the clinic as discussed, we will also have a carotid ultrasound next week. Greater than 30 minutes spent on this discharge process. MKA: 05/04/2020 17:13:22 MODL: 05/04/2020 21:13:05 /[id number]
[2020-05-05] MEDS ORDERED: predniSONE 5 MG Tab PO SCH (09:00)
== END 2020-05-04 14:30 | disposition home or self-care (01) | DRG 64 ==
LOC: VM.ED 13:25 → VM.MS 15:25
PROVIDERS: ADMIT Internal Medicine; ATTEND Internal Medicine
DX: I63.9 Cerebral infarction, unspecified (principal); I21.4 Non-ST elevation (NSTEMI) myocardial infarction; I50.23 Acute on chronic systolic (congestive) heart failure; Z51.5 Encounter for palliative care; R63.4 Abnormal weight loss; G89.29 Other chronic pain; S72.002D Fracture of unspecified part of neck of left femur, subsequent encounter for closed fracture with routine healing; Z79.891 Long term (current) use of opiate analgesic; R79.1 Abnormal coagulation profile; R42 Dizziness and giddiness; D50.9 Iron deficiency anemia, unspecified; G47.00 Insomnia, unspecified; H53.8 Other visual disturbances; E78.5 Hyperlipidemia, unspecified; I25.10 Atherosclerotic heart disease of native coronary artery without angina pectoris; I50.9 Heart failure, unspecified; J30.9 Allergic rhinitis, unspecified; K21.9 Gastro-esophageal reflux disease without esophagitis; F32.9 Major depressive disorder, single episode, unspecified; E78.00 Pure hypercholesterolemia, unspecified; I11.0 Hypertensive heart disease with heart failure; I25.2 Old myocardial infarction; G47.30 Sleep apnea, unspecified; I65.23 Occlusion and stenosis of bilateral carotid arteries; J44.9 Chronic obstructive pulmonary disease, unspecified; M19.90 Unspecified osteoarthritis, unspecified site; M17.0 Bilateral primary osteoarthritis of knee; D64.9 Anemia, unspecified; Z98.49 Cataract extraction status, unspecified eye; M16.0 Bilateral primary osteoarthritis of hip; M50.30 Other cervical disc degeneration, unspecified cervical region; Z96.60 Presence of unspecified orthopedic joint implant; M35.3 Polymyalgia rheumatica; M81.0 Age-related osteoporosis without current pathological fracture; Z88.8 Allergy status to other drugs, medicaments and biological substances; Z79.01 Long term (current) use of anticoagulants; Z79.52 Long term (current) use of systemic steroids; Z79.899 Other long term (current) drug therapy; B00.9 Herpesviral infection, unspecified; I48.0 Paroxysmal atrial fibrillation; Z96.653 Presence of artificial knee joint, bilateral; I73.9 Peripheral vascular disease, unspecified; Z98.41 Cataract extraction status, right eye; Z98.42 Cataract extraction status, left eye; Z95.1 Presence of aortocoronary bypass graft; Z90.49 Acquired absence of other specified parts of digestive tract; Z98.890 Other specified postprocedural states; Z87.891 Personal history of nicotine dependence; Z88.6 Allergy status to analgesic agent
CPT/HCPCS: 36415; 70450; 71046; 80048; 80053; 83735; 83880; 84484; 85025; 85610; 90662; 93005; 97161-GP; 97165-GO; 99284; 99285-25; A9270-GY; J1940; J7512

== ENCOUNTER 2020-09-02 06:22 | Emergency (ER) | payer MEDICARE, OTHER ==
--- NOTE | 2020-09-02 07:11 | EDM.PDOC ---
ED HPI GENERAL MEDICAL PROBLEM - General Chief Complaint: Gastrointestinal Problem Stated Complaint: Nausea Time Seen by Provider: 09/02/20 06:30 Source of Information: Reports: Patient History Limitations: Reports: No Limitations - History of Present Illness INITIAL COMMENTS - FREE TEXT/NARRATIVE: Patient comes in the emergency department with complaints of not feeling well. Patient states he has been doctoring for the last 2 weeks for not feeling well. He states he is got no new changes no new symptoms he just has been feeling not the greatest for the last 2 weeks. He states he did take a hydrocodone pill this morning to see if that would help.Has not noticed any changes. He denies any fever, chest pain, shortness of breath, dizziness, lightheadedness, changes in vision, abdominal pain, genitourinary concerns, or peripheral edema. Patient states that he did have a Holter monitor placed by his primary care provider. Patient states he feels "lazy" and run down. He denies the inability to finish any of his ADL's and continues to eat and drink without difficulty. Onset: Gradual Location: Reports: Other Quality: Reports: Other Improves with: Reports: None Worsens with: Reports: None Associated Symptoms: Reports: No Other Symptoms - Related Data Allergies Allergy/AdvReac Type Severity Reaction Status Date / Time aspirin AdvReac Bleeding Verified 09/02/20 07:10 benazepril HCl AdvReac Nausea and Verified 09/02/20 07:10 [From Lotensin] Vomiting celecoxib [From Celebrex] AdvReac Nausea and Verified 09/02/20 07:10 Vomiting cetirizine HCl AdvReac Drowsiness Verified 09/02/20 07:10 [From Zyrtec-D] pseudoephedrine HCl AdvReac Drowsiness Verified 09/02/20 07:10 [From Zyrtec-D] Home Meds: Home Meds Magnesium Hydroxide [Milk of Magnesia] 30 ml PO DAILY PRN 05/23/15 [History] Multivitamin with Minerals [Multivitamins with Minerals] 1 tab PO DAILY 05/23/15 [History] Omeprazole [Prilosec] 20 mg PO DAILY 05/23/15 [History] predniSONE [Prednisone] 5 mg PO ASDIRECTED 05/23/15 [History] Hydrocodone/Acetaminophen [Hydrocodone-Acetamin 10-325 mg] 1 tab PO Q3H PRN 10/13/17 [History] predniSONE [Prednisone] 3 mg PO ASDIRECTED 10/13/17 [History] Cholecalciferol (Vitamin D3) [Vitamin D3] 400 unit PO DAILY 01/31/20 [History] Ferrous Sulfate 325 mg PO DAILY 90 Days #30 tablet 02/03/20 [Rx] Furosemide [Lasix] 40 mg PO DAILY 90 Days #30 tablet 02/03/20 [Rx] Magnesium Oxide 400 mg PO DAILY 5 Days #5 tablet 02/03/20 [Rx] Citalopram [Citalopram HBr] 20 mg PO DAILY 03/18/20 [History] Apixaban [Eliquis] 5 mg PO BID tablet 05/04/20 [Rx] Melatonin 3 mg PO BEDTIME tablet 05/04/20 [Rx] Metoprolol Succinate [Toprol XL] 12.5 mg PO DAILY 05/29/20 [History] Past Medical History HEENT History: Reports: Allergic Rhinitis Cardiovascular History: Reports: CAD, Heart Murmur, High Cholesterol, Hypertension, PR, PVD, Other (See Below) Other Cardiovascular History: HOLOSYSTOLIC MURMUR, atherosclerosis Respiratory History: Reports: COPD, Sleep Apnea Gastrointestinal History: Reports: GERD, Other (See Below) Other Gastrointestinal History: HX OF SMALL BOWEL OBSTRUCTION, ulcers Other Genitourinary History: TESTOSTERONE DEF, Musculoskeletal History: Reports: Fracture, Osteoarthritis Other Musculoskeletal History: DJD, TROCHANTERIC BURSITIS Other Neuro History: HERPES SIMPLEX LABIALIS Psychiatric History: Reports: Depression Hematologic History: Reports: Anemia - Infectious Disease History Infectious Disease History: Reports: Measles - Past Surgical History HEENT Surgical History: Reports: Cataract Surgery Cardiovascular Surgical History: Reports: Coronary Artery Bypass Respiratory Surgical History: Reports: None GI Surgical History: Reports: Cholecystectomy, Colon, Colonoscopy Other GI Surgeries/Procedures: VENTRAL HERNIA Male Surgical History: Reports: None Musculoskeletal Surgical History: Reports: Joint Replacement, Other (See Below) Other Musculoskeletal Surgeries/Procedures:: POLYMYALGIA RHEUMATICA, shoulder injection, left hip nailing Social & Family History - Family History Family Medical History: No Pertinent Family History - Caffeine Use Caffeine Use: Reports: Coffee, Soda ED ROS GENERAL - Review of Systems Review Of Systems: Comprehensive ROS is negative, except as noted in HPI. Constitutional: Reports: No Symptoms HEENT: Reports: No Symptoms Respiratory: Reports: No Symptoms Cardiovascular: Reports: No Symptoms Endocrine: Reports: No Symptoms GI/Abdominal: Reports: No Symptoms : Reports: No Symptoms Musculoskeletal: Reports: No Symptoms Skin: Reports: No Symptoms Neurological: Reports: No Symptoms Psychiatric: Reports: No Symptoms Hematologic/Lymphatic: Reports: No Symptoms Immunologic: Reports: No Symptoms ED EXAM, GENERAL - Physical Exam Exam: See Below Exam Limited By: No Limitations General Appearance: Alert, WD/WN, No Apparent Distress Eye Exam: Bilateral Eye: EOMI, PERRL Throat/Mouth: Normal Inspection, Normal Lips, Normal Voice, No Airway Compromise Head: Atraumatic, Normocephalic Neck: Normal Inspection, Supple, Non-Tender, Full Range of Motion Respiratory/Chest: No Respiratory Distress, Lungs Clear, Normal Breath Sounds, No Accessory Muscle Use, Chest Non-Tender Cardiovascular: Normal Peripheral Pulses, Regular Rate, Rhythm GI/Abdominal: Normal Bowel Sounds, Soft, Non-Tender Back Exam: Normal Inspection, Full Range of Motion Extremities: Normal Inspection, Normal Range of Motion, Non-Tender, Normal Capillary Refill Neurological: Alert, Oriented, Normal Gait Psychiatric: Normal Affect, Normal Mood Skin Exam: Warm, Dry, Intact, Normal Color Course - Vital Signs Last Recorded V/S: Last Vital Signs Temp 36.4 C 09/02/20 06:45 Pulse 87 09/02/20 06:45 Resp 14 09/02/20 06:45 BP 166/99 H 09/02/20 06:45 Pulse Ox 97 09/02/20 06:45 - Orders/Labs/Meds Orders: Active Orders 24 hr Category Date Time Status EKG Documentation Completion [RC] STAT Care 09/02/20 06:51 Active Labs: Laboratory Tests 09/02/20 09/02/20 09/02/20 Range/Units 07:01 07:12 07:12 WBC 9.8 (4.0-10.0) x10^3/uL RBC 4.58 (4.5-6.0) x10^6/uL Hgb 12.9 L (14.0-18.0) g/dL Hct 40.9 (40.0-52.0) % MCV 89.3 (78.0-93.0) fL MCH 28.2 (26.0-32.0) pg MCHC 31.5 L (32.0-36.0) g/dL RDW Coeff of Reuben 15.1 H (10.0-15.0) % Plt Count 156 (130-400) x10^3/uL Neut % (Auto) 87.0 H (50.0-80.0) % Lymph % (Auto) 8.3 L (25.0-50.0) % Baxter % (Auto) 3.3 (2.0-11.0) % Eos % (Auto) 1.1 (0.0-4.0) % Baso % (Auto) 0.3 (0.2-1.2) % Sodium 138 (136-145) mmol/L Potassium 4.8 (3.5-5.1) mmol/L Chloride 100 (98-107) mmol/L Carbon Dioxide 33 H (21-32) mmol/L Anion Gap 9.8 (5-15) mmol/L BUN 14 (7-18) mg/dL Creatinine 0.9 (0.70-1.30) mg/dL Est Cr Clr Drug Dosing 52.45 mL/min Estimated GFR (MDRD) > 60 Glucose 108 H (74-106) mg/dL POC Glucose 103 (74-106) mg/dL Calcium 9.4 (8.5-10.1) mg/dL Corrected Calcium 9.80 (8.5-10.1) mg/dL Total Bilirubin 0.5 (0.2-1.0) mg/dL AST 20 (15-37) U/L ALT 19 (16-63) U/L Alkaline Phosphatase 108 (46-116) U/L Troponin I < 0.017 (<=0.056) ng/mL Total Protein 7.2 (6.4-8.2) g/dL Albumin 3.5 (3.4-5.0) g/dL Globulin 3.7 Albumin/Globulin Ratio 0.95 Meds: Medications Discontinued Medications Generic Name Dose Route Start Last Admin Trade Name Freq PRN Reason Stop Dose Admin Ondansetron HCl 4 mg 09/02/20 07:03 09/02/20 07:12 Zofran Odt PO 09/02/20 07:04 4 mg ONETIME ONE Administration Departure - Departure Time of Disposition: 08:15 Disposition: Home, Self-Care 01 Condition: Good Clinical Impression: Gastroenteritis Fatigue Qualifiers: Fatigue type: chronic, unspecified Qualified Code(s): R53.82 - Chronic fatigue, unspecified - Discharge Information *PRESCRIPTION DRUG MONITORING PROGRAM REVIEWED*: Not Applicable *COPY OF PRESCRIPTION DRUG MONITORING REPORT IN PATIENT RADHA: Not Applicable Instructions: Fatigue, Viral Gastroenteritis, Adult, [id number] Referrals: Patricia Alfonso DO [Primary Care Provider] - Forms: ED Department Discharge Additional Instructions: 1. rest 2. increase your water intake 3. Continue all at home medications 4. Activity and diet as tolerated 5. Can take over the counter Tylenol for any pain or discomfort 6. Follow up with PCP if symptoms continue, return, or progress 7. Call with any questions or concerns Sepsis Event Note (ED) - Focused Exam Vital Signs: Vital Signs Temp Pulse Resp BP Pulse Ox 09/02/20 06:45 36.4 C 87 14 166/99 H 97 - My Orders Last 24 Hours: My Active Orders 09/02/20 06:51 EKG Documentation Completion [RC] STAT - Assessment/Plan Last 24 Hours: My Active Orders 09/02/20 06:51 EKG Documentation Completion [RC] STAT Assessment:: 1. Generalized weakness Plan: 1. Labs completed in the ER. Results reviewed with the patient 2. EKG completed in the ER. Results reviewed with the patient 3. Zofran given in the ER to help with nausea 4. Patient and nursing staff was updated regarding the plan of care 5. Education provided the patient regarding activity, diet, rest, [id number] medication modalities, and follow-up care was provided 6. Patient and family are agreeable to the above plan of care 7. All questions and concerns were addressed with the patient and family prior to discharge
[2020-09-02] MEDS: Ondansetron 4 MG Tab.DIS PO ONE (07:12)
[2020-09-02 07:21] VITALS: BP 166/99; PULSE 87
[2020-09-02 07:41] LABS: CHLORIDE,CL 100 mmol/L (98-107); SODIUM,NA 138 mmol/L (136-145)
[2020-09-02 07:51] LABS: ANION GAP 9.8 mmol/L (5-15)
== END 2020-09-02 08:20 | disposition home or self-care (01) ==
LOC: VM.ED 06:22
DX: K52.9 Noninfective gastroenteritis and colitis, unspecified (principal); I10 Essential (primary) hypertension; I25.2 Old myocardial infarction; I25.10 Atherosclerotic heart disease of native coronary artery without angina pectoris; J44.9 Chronic obstructive pulmonary disease, unspecified; K21.9 Gastro-esophageal reflux disease without esophagitis; Z88.1 Allergy status to other antibiotic agents; Z88.8 Allergy status to other drugs, medicaments and biological substances; Z79.01 Long term (current) use of anticoagulants; Z79.899 Other long term (current) drug therapy
CPT/HCPCS: 36415; 80053; 82962; 84484; 85025; 93005; 99284; 99284-25; A9270-GY

== ENCOUNTER 2020-10-02 12:02 | Inpatient (IN) | payer MEDICARE, OTHER ==
[2020-10-02] MEDS ORDERED: Furosemide 40 MG/4 ML VIAL IV ONE (12:26)
--- NOTE | 2020-10-02 12:47 | EDM.PDOC ---
ED HPI GENERAL MEDICAL PROBLEM - General Chief Complaint: Respiratory Problem Time Seen by Provider: 10/02/20 12:08 Source of Information: Reports: Patient History Limitations: Reports: No Limitations - History of Present Illness INITIAL COMMENTS - FREE TEXT/NARRATIVE: Pt. presents to ER with complaints of increased shortness of breath over the past at least month. Pt. states that he has not been experiencing any fever or chills. He states that he has been expectorating brownish sputum. He states that he was experiencing some chest pain earlier in the day, and states that this has been an ongoing problem for him recently as well. He is a patient of Dr. Alfonso. He has a history of CAD, s/p CABG and acute systolic CHF. He also has a history of COPD. He is noted to be in atrial fibrillation today. His last several EKGs in the clinic showed sinus rhythm, but his med record states that he has a history of paroxysmal atrial fibrillation. He is anticoagulated with coumadin, dosed by [facility]. Echo in March of last year showed EF 30%. Pt. states that he has been taking his medications, but he has been resistive to taking his toprol and imdur in the past, stating to Dr. Alfonso that they make him feel sick. On arrival, he denies any active chest pain. No fever or chills. No nausea, vomiting, or diarrhea. He has noted increased edema to lower extremities. He has been afebrile. Pt. has recently received both of his covid 19 immunizations. Onset: Today Onset Date: 10/02/20 Location: Reports: Chest, Generalized Associated Symptoms: Reports: Chest Pain, Cough, Malaise, Shortness of Breath. Denies: Diaphoresis, Fever/Chills, Nausea/Vomiting, Weakness - Related Data Allergies Allergy/AdvReac Type Severity Reaction Status Date / Time aspirin AdvReac Bleeding Verified 09/02/20 07:10 benazepril HCl AdvReac Nausea and Verified 09/02/20 07:10 [From Lotensin] Vomiting celecoxib [From Celebrex] AdvReac Nausea and Verified 09/02/20 07:10 Vomiting cetirizine HCl AdvReac Drowsiness Verified 09/02/20 07:10 [From Zyrtec-D] pseudoephedrine HCl AdvReac Drowsiness Verified 09/02/20 07:10 [From Zyrte-D] Home Meds: Home Meds Magnesium Hydroxide [Milk of Magnesia] 30 ml PO DAILY PRN 05/23/15 [History] Multivitamin with Minerals [Multivitamins with Minerals] 1 tab PO DAILY 05/23/15 [History] Omeprazole [Prilosec] 20 mg PO DAILY 05/23/15 [History] predniSONE [Prednisone] 5 mg PO ASDIRECTED 05/23/15 [History] Hydrocodone/Acetaminophen [Hydrocodone-Acetamin 10-325 mg] 1 tab PO Q3H PRN 10/13/17 [History] predniSONE [Prednisone] 3 mg PO ASDIRECTED 10/13/17 [History] Cholecalciferol (Vitamin D3) [Vitamin D3] 400 unit PO DAILY 01/31/20 [History] Ferrous Sulfate 325 mg PO DAILY 90 Days #30 tablet 02/03/20 [Rx] Furosemide [Lasix] 40 mg PO DAILY 90 Days #30 tablet 02/03/20 [Rx] Magnesium Oxide 400 mg PO DAILY 5 Days #5 tablet 02/03/20 [Rx] Citalopram [Citalopram HBr] 20 mg PO DAILY 03/18/20 [History] Apixaban [Eliquis] 5 mg PO BID tablet 05/04/20 [Rx] Melatonin 3 mg PO BEDTIME tablet 05/04/20 [Rx] Metoprolol Succinate [Toprol XL] 12.5 mg PO DAILY 05/29/20 [History] Past Medical History HEENT History: Reports: Allergic Rhinitis Cardiovascular History: Reports: CAD, Heart Murmur, High Cholesterol, Hypertension, [place], PVD, Other (See Below) Other Cardiovascular History: HOLOSYSTOLIC MURMUR, atherosclerosis Respiratory History: Reports: COPD, Sleep Apnea Gastrointestinal History: Reports: GERD, Other (See Below) Other Gastrointestinal History: HX OF SMALL BOWEL OBSTRUCTION, ulcers Other Genitourinary History: TESTOSTERONE DEF, Musculoskeletal History: Reports: Fracture, Osteoarthritis Other Musculoskeletal History: DJD, TROCHANTERIC BURSITIS Other Neuro History: HERPES SIMPLEX LABIALIS Psychiatric History: Reports: Depression Hematologic History: Reports: Anemia - Infectious Disease History Infectious Disease History: Reports: Measles - Past Surgical History HEENT Surgical History: Reports: Cataract Surgery Cardiovascular Surgical History: Reports: Coronary Artery Bypass Respiratory Surgical History: Reports: None GI Surgical History: Reports: Cholecystectomy, Colon, Colonoscopy Other GI Surgeries/Procedures: VENTRAL HERNIA Male Surgical History: Reports: None Musculoskeletal Surgical History: Reports: Joint Replacement, Other (See Below) Other Musculoskeletal Surgeries/Procedures:: POLYMYALGIA RHEUMATICA, shoulder injection, left hip nailing Social & Family History - Family History Family Medical History: No Pertinent Family History - Caffeine Use Caffeine Use: Reports: Coffee, Soda ED ROS GENERAL - Review of Systems Review Of Systems: See Below Constitutional: Reports: No Symptoms HEENT: Reports: No Symptoms Respiratory: Reports: Shortness of Breath, Pleuritic Chest Pain, Cough Cardiovascular: Reports: Chest Pain (in the past), Dyspnea on Exertion, Edema Endocrine: Reports: No Symptoms GI/Abdominal: Reports: No Symptoms : Reports: No Symptoms Musculoskeletal: Reports: No Symptoms Skin: Reports: No Symptoms Neurological: Reports: No Symptoms Psychiatric: Reports: No Symptoms Hematologic/Lymphatic: Reports: No Symptoms Immunologic: Reports: No Symptoms ED EXAM, GENERAL - Physical Exam Exam: See Below Exam Limited By: No Limitations General Appearance: Alert, WD/WN, Mild Distress Throat/Mouth: Normal Oropharynx, No Airway Compromise, Other (dentures) Neck: Normal Inspection, Supple Respiratory/Chest: No Accessory Muscle Use, Chest Non-Tender, Decreased Breath Sounds, Crackles Cardiovascular: Irregularly Irregular, Other (3+ pitting edema) Peripheral Pulses: 4+: Radial (L) GI/Abdominal: Soft, Non-Tender, No Distention, No Mass (Male) Exam: Deferred Rectal (Males) Exam: Deferred Extremities: Normal Inspection, Normal Range of Motion, Non-Tender, No Pedal Edema, Normal Capillary Refill Neurological: Alert, Oriented, CN II-XII Intact, Normal Cognition, Normal Reflexes Psychiatric: Normal Affect, Normal Mood Skin Exam: Warm, Dry, Intact, Normal Color, No Rash Lymphatic: No Adenopathy #1 Interpretation Rhythm: A-Fib Course - Vital Signs Last Recorded V/S: Last Vital Signs Temp 36.2 C 10/02/20 12:25 Pulse 101 H 10/02/20 12:58 Resp 16 10/02/20 12:58 BP 136/76 10/02/20 12:58 Pulse Ox 94 L 10/02/20 12:58 - Orders/Labs/Meds Orders: Active Orders 24 hr Category Date Time Status Patient Status [ADT] Routine ADT 10/02/20 13:32 Active Cardiac Monitoring [RC] CONTINUOUS Care 10/02/20 12:13 Active EKG Documentation Completion [RC] STAT Care 10/02/20 12:13 Active CULTURE BLOOD [BC] Stat Lab 10/02/20 12:15 Received CULTURE BLOOD [BC] Stat Lab 10/02/20 12:30 Received Sodium Chloride 0.9% [Saline Flush] Med 10/02/20 12:13 Active 10 ml FLUSH ASDIRECTED PRN Blood Culture x2 Reflex Set [OM.PC] Stat Oth 10/02/20 12:14 Ordered Peripheral IV Insertion Adult [OM.PC] Routine Oth 10/02/20 12:14 Ordered Medication Orders Sodium Chloride (Saline Flush) 10 ml FLUSH ASDIRECTED PRN PRN Reason: Keep Vein Open Labs: Laboratory Tests 10/02/20 10/02/20 10/02/20 Range/Units 12:15 12:15 12:15 WBC 10.1 H (4.0-10.0) x10^3/uL RBC 4.29 L (4.5-6.0) x10^6/uL Hgb 12.1 L (14.0-18.0) g/dL Hct 38.8 L (40.0-52.0) % MCV 90.4 (78.0-93.0) fL MCH 28.2 (26.0-32.0) pg MCHC 31.2 L (32.0-36.0) g/dL RDW Coeff of Reuben 14.8 (10.0-15.0) % Plt Count 237 D (130-400) x10^3/uL Neut % (Auto) 84.3 H (50.0-80.0) % Lymph % (Auto) 9.3 L (25.0-50.0) % Mineral % (Auto) 5.2 (2.0-11.0) % Eos % (Auto) 0.8 (0.0-4.0) % Baso % (Auto) 0.4 (0.2-1.2) % PT 31.6 H (9.9-12.5) SEC INR 2.9 (2.0-3.5) APTT (25.6-32.8) SEC Sodium 144 (136-145) mmol/L Potassium 4.4 (3.5-5.1) mmol/L Chloride 104 (98-107) mmol/L Carbon Dioxide 30 (21-32) mmol/L Anion Gap 14.4 (5-15) mmol/L BUN 15 (7-18) mg/dL Creatinine 1.1 (0.70-1.30) mg/dL Est Cr Clr Drug Dosing 43.18 mL/min Estimated GFR (MDRD) > 60 Glucose 149 H (74-106) mg/dL Lactic Acid (0.4-2.0) mmol/L Calcium 9.4 (8.5-10.1) mg/dL Corrected Calcium 9.88 (8.5-10.1) mg/dL Magnesium 2.0 (1.8-2.4) mg/dL Total Bilirubin 0.5 (0.2-1.0) mg/dL AST 34 (15-37) U/L ALT 22 (16-63) U/L Alkaline Phosphatase 151 H (46-116) U/L Troponin I High Sens 118 H* (<=76) ng/L C-Reactive Protein 3.2 H (<=0.9) mg/dL NT-Pro-B Natriuret Pep 57708 H (<=450) pg/mL Total Protein 7.2 (6.4-8.2) g/dL Albumin 3.4 (3.4-5.0) g/dL Globulin 3.8 Albumin/Globulin Ratio 0.89 Influenza Type A RNA (NEGATIVE) Influenza Type B RNA (NEGATIVE) SARS-CoV-2 RNA (GILBERTO) (NEGATIVE) 10/02/20 10/02/20 10/02/20 Range/Units 12:15 12:15 12:17 WBC (4.0-10.0) x10^3/uL RBC (4.5-6.0) x10^6/uL Hgb (14.0-18.0) g/dL Hct (40.0-52.0) % MCV (78.0-93.0) fL MCH (26.0-32.0) pg MCHC (32.0-36.0) g/dL RDW Coeff of Reuben (10.0-15.0) % Plt Count (130-400) x10^3/uL Neut % (Auto) (50.0-80.0) % Lymph % (Auto) (25.0-50.0) % Mineral % (Auto) (2.0-11.0) % Eos % (Auto) (0.0-4.0) % Baso % (Auto) (0.2-1.2) % PT (9.9-12.5) SEC INR (2.0-3.5) APTT 35.5 H (25.6-32.8) SEC Sodium (136-145) mmol/L Potassium (3.5-5.1) mmol/L Chloride (98-107) mmol/L Carbon Dioxide (21-32) mmol/L Anion Gap (5-15) mmol/L BUN (7-18) mg/dL Creatinine (0.70-1.30) mg/dL Est Cr Clr Drug Dosing mL/min Estimated GFR (MDRD) Glucose (74-106) mg/dL Lactic Acid 1.9 (0.4-2.0) mmol/L Calcium (8.5-10.1) mg/dL Corrected Calcium (8.5-10.1) mg/dL Magnesium (1.8-2.4) mg/dL Total Bilirubin (0.2-1.0) mg/dL AST (15-37) U/L ALT (16-63) U/L Alkaline Phosphatase (46-116) U/L Troponin I High Sens (<=76) ng/L C-Reactive Protein (<=0.9) mg/dL NT-Pro-B Natriuret Pep (<=450) pg/mL Total Protein (6.4-8.2) g/dL Albumin (3.4-5.0) g/dL Globulin Albumin/Globulin Ratio Influenza Type A RNA Negative (NEGATIVE) Influenza Type B RNA Negative (NEGATIVE) SARS-CoV-2 RNA (GILBERTO) Negative (NEGATIVE) Meds: Medications Generic Name Dose Route Start Last Admin Trade Name Freq PRN Reason Stop Dose Admin Sodium Chloride 10 ml 10/02/20 12:13 Saline Flush FLUSH ASDIRECTED PRN Keep Vein Open Discontinued Medications Generic Name Dose Route Start Last Admin Trade Name Freq PRN Reason Stop Dose Admin Furosemide 40 mg 10/02/20 12:26 10/02/20 12:47 Lasix IV 10/02/20 12:27 40 mg ONETIME ONE Administration Ondansetron HCl 4 mg 03/02/21 13:16 10/02/20 13:20 Zofran IVPUSH 10/02/20 13:17 4 mg ONETIME ONE Administration - Radiology Interpretation Free Text/Narrative:: L sided pleural effusion, present on previous study. Questionable increased fluid retention noted as well. No obvious infiltrate noted. Departure - Departure Time of Disposition: 13:42 Disposition: DC/Tfer to [facility] 02 Clinical Impression: CHF (congestive heart failure) Qualifiers: Heart failure type: unspecified Heart failure chronicity: acute on chronic Q ualified Code(s): I50.9 - Heart failure, unspecified - Discharge Information Forms: ED Department Discharge Sepsis Event Note (ED) - Focused Exam Vital Signs: Vital Signs Temp Pulse Resp BP Pulse Ox 10/02/20 12:58 101 H 16 136/76 94 L 10/02/20 12:25 36.2 C 115 H 18 161/92 H 86 L - My Orders Last 24 Hours: My Active Orders 10/02/20 12:13 Cardiac Monitoring [RC] CONTINUOUS EKG Documentation Completion [RC] STAT Sodium Chloride 0.9% [Saline Flush] 10 ml FLUSH ASDIRECTED PRN 10/02/20 12:14 Blood Culture x2 Reflex Set [OM.PC] Stat Peripheral IV Insertion Adult [OM.PC] Routine 10/02/20 12:15 CULTURE BLOOD [BC] Stat 10/02/20 12:30 CULTURE BLOOD [BC] Stat 10/02/20 13:32 Patient Status [ADT] Routine - Assessment/Plan Last 24 Hours: My Active Orders 10/02/20 12:13 Cardiac Monitoring [RC] CONTINUOUS EKG Documentation Completion [RC] STAT Sodium Chloride 0.9% [Saline Flush] 10 ml FLUSH ASDIRECTED PRN 10/02/20 12:14 Blood Culture x2 Reflex Set [OM.PC] Stat Peripheral IV Insertion Adult [OM.PC] Routine 10/02/20 12:15 CULTURE BLOOD [BC] Stat 10/02/20 12:30 CULTURE BLOOD [BC] Stat 10/02/20 13:32 Patient Status [ADT] Routine Plan: Pt. will be admitted acutely. Dr. Alfonso will be admitting/attending. Pt. indicates that he does not want to be resuscitated, and is a DNR/DNI. Pt. was given lasix 40mg IV. He was also complaining of some nausea so he was given zofran 4mg IV. Will continue telemetry. Trend troponin. Family and patient are aware and agree with the plan of care.
--- NOTE | 2020-10-02 12:49 | CR ---
[id number] RAD/RAD Chest PA or AP 1V EXAM: SINGLE VIEW CHEST. INDICATION: SHORTNESS OF BREATH COMPARISON: CORRELATION IS MADE WITH MAY 03, 2020 FINDINGS: Atelectasis and effusion are seen at the left lung base The right lung is clear IMPRESSION: PLEURAL FLUID WITH VOLUME LOSS LEFT LUNG BASE Lon Lowery MD 10/02/20 [id number] Thank you for allowing us to participate in the care of your patient.
[2020-10-02 13:14] LABS: CHLORIDE,CL 104 mmol/L (98-107); SODIUM,NA 144 mmol/L (136-145)
[2020-10-02] MEDS ORDERED: Ondansetron 4 MG/2 ML SDV IVPUSH ONE (13:16)
[2020-10-02 13:17] LABS: CORONAVIRUS COVID-19 NAA NEGATIVE (NEGATIVE)
[2020-10-02 13:19] LABS: ANION GAP 14.4 mmol/L (5-15)
[2020-10-02] MEDS ORDERED: Nitroglycerin 0.4 MG Tab.SL SL PRN (17:20)
[2020-10-02] MEDS ORDERED: Magnesium Hydroxide 400 MG/5 ML Susp 30 ML Cup PO PRN (17:20)
[2020-10-02] MEDS: Calcium Carbonate/Vitamin D3 1250 MG-200 Unit Tab PO SCH (18:06)
[2020-10-02] MEDS: Metoprolol Succinate 25 MG Tab.ER PO SCH (19:43)
[2020-10-02] MEDS: Acetaminophen/HYDROcodone 325-10 MG Tab PO PRN (19:44)
[2020-10-02] MEDS: Sodium Chloride 0.9% 10 ML Syringe FLUSH PRN (19:48)
[2020-10-02] MEDS ORDERED: Melatonin 3 MG Tab PO SCH (20:00)
[2020-10-02] MEDS ORDERED: traZODone 50 MG Tab PO SCH (20:00)
--- NOTE | 2020-10-02 22:16 | HP ---
CHIEF COMPLAINT: Chest pain and shortness of breath. HISTORY OF PRESENT ILLNESS: This is an 80-year-old male who was seen on the due to a cough keeping him up at night and shortness of breath. He was felt to be having a mild CHF exacerbation and started on Lasix 20 mg daily, but his symptoms worsened. He also was supposed to have an overnight oxygen test. The patient has known severe mitral regurgitation with an EF of 30% and coronary artery disease, and atrial fibrillation. He has not had any chest pain since arriving and getting some IV Lasix. He has noted faster heart beats. The patient does chronically take hydrocodone for hip pain. He has not had any fever or chills. He is coughing up some brown sputum. He has not had any recent pneumonias but has had it in the past. He is not a smoker but does have COPD. He did not receive any antibiotics in the ER but did get 40 mg of IV Lasix and Zofran, and he states he has been putting out good urine since, at least 1 L is already recorded. Troponin was positive, but EKG did not show any acute ST elevation. He is in atrial fibrillation. PHYSICAL EXAMINATION: Vital Signs: On admission, when I saw him at the hospital, temperature 97.2, pulse 101, blood pressure 136/76 but was 161/92 coming in the door, respiratory rate 16, and O2 now at 94% on 2 L, was 86% on room air. General: He is in no acute distress. He is mildly pale. Heart: Irregularly irregular with murmur. Lungs: Sounds are decreased in both bases but no crackles. No wheezes. Abdomen: Nondistended, nontender. Extremities: Warm and dry with 1+ ankle edema. He did report some increased swelling in his legs over the last few days as well. Mental Status: Alert and orientated x3. He is polite and cooperative. DIAGNOSTIC DATA: Chest x-ray is showing no major pleural effusions but some increased pulmonary vascular congestion. Otherwise, on lab work, white count 10.1, hemoglobin 12.1, platelets 237. INR 2.9. Sodium 144, potassium 4.4, chloride 104, bicarb 30, BUN 15, creatinine 1.1, glucose 149, lactic 1.9, calcium 9.4, magnesium 2. Bilirubin 0.5, AST 34, ALT 22. CRP 3.2. ProBNP 19,542. Albumin 3.4. Influenza and COVID negative. ASSESSMENT: 1. Acute on chronic systolic heart failure exacerbation with moderate to severe mitral regurgitation. EF 30%, 03/2020. 2. Non ST-elevation myocardial infarction, likely due to heart failure. The patient has had some angina that is now relieved after blood pressure improved and diuretics. He has had remote CABG. 3. Paroxysmal atrial fibrillation. We will place him on telemetry. He is tachycardic. We will order his home medications and adjust if needed. 4. Chronic pain. We will order his hydrocodone. 5. Chronic obstructive pulmonary disease, mild. He does not seem to be having an exacerbation of that. We will hold off on antibiotics. 6. Depression. He will continue home medications. 7. Polymyalgia. He will continue prednisone. PLAN: The patient will be admitted for acute cares. We will trend his troponin. He is a code level 3, do not resuscitate. I anticipate he will need a 2-night stay to help with diuresis and stabilize his overall medical condition. We will monitor his lab work. MKA: 10/02/2020 17:20:45 MODL: 10/02/2020 21:55:59 /[id number] LEONARDO
[2020-10-03] MEDS: Acetaminophen/HYDROcodone 325-10 MG Tab PO PRN ×2 (07:22→13:22)
[2020-10-03] MEDS: Calcium Carbonate/Vitamin D3 1250 MG-200 Unit Tab PO SCH (07:23)
[2020-10-03] MEDS: Metoprolol Succinate 25 MG Tab.ER PO SCH (07:25)
[2020-10-03 07:33] LABS: CHLORIDE,CL 104 mmol/L (98-107); SODIUM,NA 146 mmol/L (136-145)
[2020-10-03 07:36] LABS: ANION GAP 9.6 mmol/L (5-15)
[2020-10-03] MEDS ORDERED: Cholecalciferol (Vitamin D3) 10 MCG Tab PO SCH (08:00)
[2020-10-03] MEDS ORDERED: Metoprolol Succinate 25 MG Tab.ER PO SCH (08:00)
[2020-10-03] MEDS ORDERED: Isosorbide Mononitrate 30 MG Tab.ER PO SCH (08:00)
[2020-10-03] MEDS ORDERED: Losartan 25 MG Tab PO SCH (08:00)
[2020-10-03] MEDS ORDERED: Omeprazole 20 MG Cap.CR PO SCH (08:00)
[2020-10-03] MEDS ORDERED: Citalopram 20 MG Tab PO SCH (08:00)
[2020-10-03] MEDS ORDERED: Magnesium Oxide 400 MG Tab PO SCH (08:00)
[2020-10-03] MEDS ORDERED: predniSONE 1 MG Tab PO SCH (08:00)
[2020-10-03] MEDS: Furosemide 20 MG/2 ML VIAL IV SCH ×2 (08:46→15:34)
[2020-10-03] MEDS: Sodium Chloride 0.9% 10 ML Syringe FLUSH PRN ×2 (08:46→15:34)
[2020-10-03 15:24] VITALS: BP 116/75; PULSE 83
[2020-10-03] MEDS ORDERED: Potassium Chloride 10 MEQ Tab.ER PO SCH (16:00)
[2020-10-03] MEDS ORDERED: Warfarin 5 MG Tab PO SCH (20:00)
--- NOTE | 2020-10-03 20:56 | DISCH ---
PRIMARY DISCHARGE DIAGNOSES: 1. Non-ST elevation myocardial infarction due to an acute heart failure exacerbation. 2. Acute on chronic systolic heart failure exacerbation with ejection fraction of 30%. Echo last done in 03/2020. 3. Atrial fibrillation with rapid ventricular response, likely exacerbating the heart failure. 4. [id number] mitral regurgitation, not felt to be a surgical candidate. 5. Coronary artery disease with previous coronary artery bypass grafting. He had no chest pain after treatment for heart failure and oxygen. 6. Acute hypoxic respiratory failure related to heart failure, requiring discharge with oxygen. 7. Chronic pain related to previous left hip fracture, on narcotics and palliative care. 8. Moderate malnutrition. 9. Chronic obstructive pulmonary disease with chronic cough, not felt to have an acute exacerbation. Blood cultures negative. 10.Depression. 11.Polymyalgia, on chronic prednisone. 12.Mild anemia due to chronic disease. REASON FOR ADMISSION: On the date of admission, this 80-year-old male had been at home. He had been getting more short of breath. He had been restarted recently on Lasix in the clinic last week. However, his symptoms were not improving. In the ER, he was 86% on room air and 92% with 2 L. He was given IV Lasix and in fact did diurese 1.5 L. His chest pain resolved and he was feeling much better. ProBNP was elevated to 19,000. His troponin initially was 118. Did go up to 129, then back down to 110. Influenza and COVID testing were negative. The patient was continued on IV Lasix 20 mg twice daily. His heart rates on the first evening were quite tachycardic with his AFib up into the 140s, but this improved after he finished eating and he was given his daily 12.5 Toprol dose instead of waiting until the next morning. Otherwise, the patient is feeling well this morning. He is hoping to be discharged home with oxygen as he was about to undergo an overnight oxygen test at home, however, it had not been completed yet. He is not feeling lightheaded or dizzy. He is tolerating a diet. His pain is controlled. The patient did undergo a home O2 eval. He was 84% on room air, and with walking just 15 feet, his sats came up to 86% on 1 L and 94% on 2 L. DISCHARGE PLANS AND INSTRUCTIONS: The patient will be discharged home with 2 L of oxygen at rest and with activity and he will undergo a home O2 eval at night. He will follow up in the clinic with Dr. Alfonso in 1 to 2 weeks with BMP and CBC. He will now be on Lasix, which is increased from 20 mg once daily to 40 mg oral daily and oxygen to help prevent heart failure. We will also set up an outpatient echo. PHYSICAL EXAMINATION: Discharging Vitals: Include a weight 58.9 kg, temperature 97.6, pulse 85, blood pressure 129/71, respiratory rate 18, and O2 of 94% on 2 L. General: He is in no acute distress. Heart: Irregularly irregular with murmur. Lungs: Lung sounds do have slight decreased air entry in the bases, but no crackles or wheezes. Overall improved since admission. Abdomen: Nondistended, nontender. Extremities: Warm and dry. No edema. Mental Status: He is alert and oriented x3. Greater than 30 minutes spent on the discharge process. MKA: 10/03/2020 14:47:40 MODL: 10/03/2020 20:46:23 /[id number]
[2020-10-04] MEDS ORDERED: Omeprazole 20 MG Cap.CR PO SCH (07:00)
[2020-10-06] MEDS ORDERED: predniSONE 5 MG Tab PO SCH (08:00)
== END 2020-10-03 16:25 | disposition home or self-care (01) | DRG 280 ==
LOC: VM.ED 12:02 → VM.MS 13:32
PROVIDERS: ADMIT Internal Medicine; ATTEND Internal Medicine
DX: I11.0 Hypertensive heart disease with heart failure (principal); I50.9 Heart failure, unspecified; I13.0 Hypertensive heart and chronic kidney disease with heart failure and stage 1 through stage 4 chronic kidney disease, or unspecified chronic kidney disease; I50.23 Acute on chronic systolic (congestive) heart failure; I21.4 Non-ST elevation (NSTEMI) myocardial infarction; I48.0 Paroxysmal atrial fibrillation; J44.9 Chronic obstructive pulmonary disease, unspecified; J30.9 Allergic rhinitis, unspecified; I35.8 Other nonrheumatic aortic valve disorders; G89.29 Other chronic pain; Z66 Do not resuscitate; F32.9 Major depressive disorder, single episode, unspecified; M35.3 Polymyalgia rheumatica; I25.10 Atherosclerotic heart disease of native coronary artery without angina pectoris; Z79.01 Long term (current) use of anticoagulants; Z88.6 Allergy status to analgesic agent; Z88.8 Allergy status to other drugs, medicaments and biological substances; Z79.52 Long term (current) use of systemic steroids; Z79.899 Other long term (current) drug therapy; E78.00 Pure hypercholesterolemia, unspecified; I25.2 Old myocardial infarction; I73.9 Peripheral vascular disease, unspecified; G47.30 Sleep apnea, unspecified; K21.9 Gastro-esophageal reflux disease without esophagitis; M19.90 Unspecified osteoarthritis, unspecified site; D64.9 Anemia, unspecified; Z90.49 Acquired absence of other specified parts of digestive tract; I34.0 Nonrheumatic mitral (valve) insufficiency; Z95.1 Presence of aortocoronary bypass graft; Z20.822 Contact with and (suspected) exposure to COVID-19
CPT/HCPCS: 0240U; 36415; 71045; 80053; 83605; 83735; 83880; 84484; 85025; 85610; 85730; 86140; 87040; 93005; 93010; 96374; 96375; 99284; 99285-25; A9270-GY; J1940; J2405; J7512

== ENCOUNTER 2020-10-24 19:14 | Observation (INO) | payer MEDICARE, OTHER ==
[2020-10-24 20:33] LABS: CHLORIDE,CL 102 mmol/L (98-107); PTT,PARTIAL THROMBOPLSTIN TIME 32.2 SEC (25.6-32.8); SODIUM,NA 142 mmol/L (136-145)
[2020-10-24 20:34] LABS: ANION GAP 6.7 mmol/L (5-15)
[2020-10-24] MEDS ORDERED: Pantoprazole 40 MG Vial IVPUSH ONE (20:58)
[2020-10-24] MEDS ORDERED: Iopamidol 612 MG/ML 100 ML Bottle IVPUSH ONE (21:05)
[2020-10-24] MEDS: Lactated Ringers 1,000 ML IV SCH (21:45)
[2020-10-24] MEDS ORDERED: Phytonadione 5 MG Tab PO ONE (21:47)
[2020-10-24] MEDS ORDERED: Ondansetron 4 MG/2 ML SDV IV PRN (22:27)
[2020-10-24] MEDS ORDERED: Acetaminophen 325 MG Tab PO PRN (22:27)
[2020-10-24] MEDS: Acetaminophen/HYDROcodone 325-10 MG Tab PO PRN (23:14)
[2020-10-24] MEDS ORDERED: traZODone 50 MG Tab PO ONE (23:45)
[2020-10-24] MEDS: Sodium Chloride 0.9% 10 ML Syringe FLUSH PRN (23:48)
[2020-10-25] MEDS ORDERED: Metoprolol Tartrate 5 MG/5 ML SDV IVPUSH ONE (02:21)
[2020-10-25] MEDS ORDERED: Metoprolol Tartrate 5 MG/5 ML SDV IVPUSH STA ×2 (02:21→03:33)
[2020-10-25 02:24] LABS: PTT,PARTIAL THROMBOPLSTIN TIME 31.3 SEC (25.6-32.8)
[2020-10-25] MEDS: Sodium Chloride 0.9% 10 ML Syringe FLUSH PRN ×3 (02:29→03:51)
--- NOTE | 2020-10-25 02:29 | EDM.PDOC ---
ED HPI GENERAL MEDICAL PROBLEM - General Chief Complaint: Gastrointestinal Problem Stated Complaint: rectal bleeding Time Seen by Provider: 10/24/20 19:30 Source of Information: Reports: Patient, Family History Limitations: Reports: No Limitations - History of Present Illness INITIAL COMMENTS - FREE TEXT/NARRATIVE: Patient comes emergency department today from home with concerns of rectal bleeding. Patient is a long-term anticoagulant patient with atrial fibrillation. He does have a impressive history of congestive heart failure as well to. Earlier today about noon or so he had a somewhat painful bowel movement and then he started noting chong red blood in his stool. He had 2 other bowel movements at home today that he says were chong red blood. He does have a history of hemorrhoids. He denies any weakness dizziness lightheadedness. No chest pain or shortness of breath or difficulty breathing. No palpitations or syncope. He does complain of generalized abdominal discomfort no nausea no vomiting. He has had no change in his recent medications. He has had no lower gastrointestinal hemorrhage in the past. No hematuria dysuria or urinary frequency. No Covid exposure no Covid symptoms. - Related Data Allergies Allergy/AdvReac Type Severity Reaction Status Date / Time aspirin AdvReac Bleeding Verified 09/02/20 07:10 benazepril HCl AdvReac Nausea and Verified 09/02/20 07:10 [From Lotensin] Vomiting celecoxib [From Celebrex] AdvReac Nausea and Verified 09/02/20 07:10 Vomiting cetirizine HCl AdvReac Drowsiness Verified 09/02/20 07:10 [From Zyrtec-D] pseudoephedrine HCl AdvReac Drowsiness Verified 09/02/20 07:10 [From Zyrtec-D] Home Meds: Home Meds Multivitamin with Minerals [Multivitamins with Minerals] 1 tab PO DAILY 05/23/15 [History] predniSONE [Prednisone] 5 mg PO ASDIRECTED 05/23/15 [History] Hydrocodone/Acetaminophen [Hydrocodone-Acetamin 10-325 mg] 1 - 2 tab PO Q3H PRN 10/13/17 [History] predniSONE [Prednisone] 3 mg PO ASDIRECTED 10/13/17 [History] Cholecalciferol (Vitamin D3) [Vitamin D3] 400 unit PO DAILY 01/31/20 [History] Ferrous Sulfate 325 mg PO DAILY 90 Days #30 tablet 02/03/20 [Rx] Citalopram [Citalopram HBr] 20 mg PO DAILY 03/18/20 [History] Melatonin 3 mg PO BEDTIME tablet 05/04/20 [Rx] Metoprolol Succinate [Toprol XL] 12.5 mg PO DAILY 05/29/20 [History] Calcium Carbonate/Vitamin D3 [Caltrate 600 Plus D3 Tablet] 1 tab PO BIDMEALS 10/02/20 [History] Denosumab [Prolia] 60 mg SUBCUT Q180D 10/02/20 [History] Fluticasone Propionate [Flonase] 50 mcg NASBOTH BID 10/02/20 [History] Isosorbide Mononitrate [Imdur] 30 mg PO QAM 10/02/20 [History] Magnesium Oxide 400 mg PO DAILY 10/02/20 [History] traZODone HCl [Trazodone HCl] 50 - 100 mg PO BEDTIME 10/02/20 [History] Furosemide 40 mg PO DAILY #0 10/03/20 [Rx] Potassium Chloride [Klor-Con 10] 10 meq PO DAILY #30 tab.er 10/03/20 [Rx] Past Medical History HEENT History: Reports: Allergic Rhinitis Cardiovascular History: Reports: CAD, Heart Murmur, High Cholesterol, Hypertension, NV, PVD, Other (See Below) Other Cardiovascular History: HOLOSYSTOLIC MURMUR, atherosclerosis Respiratory History: Reports: COPD, Sleep Apnea Gastrointestinal History: Reports: GERD, Other (See Below) Other Gastrointestinal History: HX OF SMALL BOWEL OBSTRUCTION, ulcers Other Genitourinary History: TESTOSTERONE DEF, Musculoskeletal History: Reports: Fracture, Osteoarthritis Other Musculoskeletal History: DJD, TROCHANTERIC BURSITIS Other Neuro History: HERPES SIMPLEX LABIALIS Psychiatric History: Reports: Depression Hematologic History: Reports: Anemia - Infectious Disease History Infectious Disease History: Reports: None - Past Surgical History HEENT Surgical History: Reports: Cataract Surgery Cardiovascular Surgical History: Reports: Coronary Artery Bypass Respiratory Surgical History: Reports: None GI Surgical History: Reports: Cholecystectomy, Colon, Colonoscopy Other GI Surgeries/Procedures: VENTRAL HERNIA Male Surgical History: Reports: None Musculoskeletal Surgical History: Reports: Joint Replacement, Other (See Below) Other Musculoskeletal Surgeries/Procedures:: POLYMYALGIA RHEUMATICA, shoulder injection, left hip nailing Social & Family History - Family History Family Medical History: No Pertinent Family History - Tobacco Use Tobacco Use Status *Q: Never Tobacco User - Caffeine Use Caffeine Use: Reports: Coffee, Soda ED ROS GENERAL - Review of Systems Review Of Systems: Comprehensive ROS is negative, except as noted in HPI. ED EXAM, GENERAL - Physical Exam Exam: See Below Free Text/Narrative:: This is a very pleasant very nice alert and appropriate gentleman who appears in no acute distress. Exam Limited By: No Limitations General Appearance: Alert, WD/WN, No Apparent Distress, Thin Eye Exam: Bilateral Eye: EOMI, PERRL Ears: Normal External Exam Nose: Normal Inspection Throat/Mouth: Normal Inspection Head: Atraumatic, Normocephalic Neck: Normal Inspection, Supple, Non-Tender, Full Range of Motion Respiratory/Chest: No Respiratory Distress, Lungs Clear, Normal Breath Sounds, Chest Non-Tender Cardiovascular: Normal Peripheral Pulses, No Murmur, Irregularly Irregular Peripheral Pulses: 2+: Radial (L), Radial (R), Posterior Tibial (L), Posterior Tibial (R), Dorsalis Pedis (L), Dorsalis Pedis (R) GI/Abdominal: Normal Bowel Sounds, Soft, Tender (There is generalized tenderness throughout the abdomen. There is no rigidity guarding or rebound. Hyperactive bowel sounds.) (Male) Exam: Deferred Rectal (Males) Exam: Deferred, Bloody Stool (dark marroon foul smelling stool. ), Heme + Stool. No: Hemorrhoids, Mass, Perirectal Abscess, Prostate Nodule, Rectal Fissure, Tenderness Back Exam: Normal Inspection, Full Range of Motion Extremities: Normal Inspection, Normal Range of Motion, No Pedal Edema, Normal Capillary Refill Neurological: Alert, Oriented, Normal Cognition, No Motor/Sensory Deficits Psychiatric: Normal Affect, Normal Mood Skin Exam: Warm, Dry, Intact, Normal Color, No Rash Course - Vital Signs Last Recorded V/S: Last Vital Signs Temp 98.3 F 10/25/20 14:00 Pulse 91 10/25/20 14:00 Resp 18 10/25/20 14:00 BP 119/69 10/25/20 14:00 Pulse Ox 98 10/25/20 14:00 - Orders/Labs/Meds Orders: Active Orders 24 hr Category Date Time Status Abdomen Pelvis w Cont [CT] Stat Exams 10/24/20 20:07 Taken Peripheral IV Insertion Adult [OM.PC] Stat Oth 10/24/20 19:46 Ordered Labs: Laboratory Tests 10/24/20 10/24/20 10/24/20 Range/Units 20:03 20:03 20:03 WBC 8.8 (4.0-10.0) x10^3/uL RBC 3.11 L (4.5-6.0) x10^6/uL Hgb 8.6 L D (14.0-18.0) g/dL Hct 29.4 L (40.0-52.0) % MCV 94.5 H (78.0-93.0) fL MCH 27.7 (26.0-32.0) pg MCHC 29.3 L (32.0-36.0) g/dL RDW Coeff of Reuben 13.9 (10.0-15.0) % Plt Count 152 (130-400) x10^3/uL Neut % (Auto) 78.7 (50.0-80.0) % Lymph % (Auto) 13.9 L (25.0-50.0) % [place] % (Auto) 5.0 (2.0-11.0) % Eos % (Auto) 1.9 (0.0-4.0) % Baso % (Auto) 0.5 (0.2-1.2) % PT 21.0 H D (9.9-12.5) SEC INR 1.9 L (2.0-3.5) APTT 32.2 (25.6-32.8) SEC Sodium 142 (136-145) mmol/L Potassium 4.7 (3.5-5.1) mmol/L Chloride 102 (98-107) mmol/L Carbon Dioxide 38 H (21-32) mmol/L Anion Gap 6.7 (5-15) mmol/L BUN 21 H (7-18) mg/dL Creatinine 1.0 (0.70-1.30) mg/dL Est Cr Clr Drug Dosing 47.87 mL/min Estimated GFR (MDRD) > 60 Glucose 96 (74-106) mg/dL Lactic Acid (0.4-2.0) mmol/L Calcium 8.7 (8.5-10.1) mg/dL Corrected Calcium 9.82 (8.5-10.1) mg/dL Total Bilirubin 0.4 (0.2-1.0) mg/dL AST 15 (15-37) U/L ALT 14 L (16-63) U/L Alkaline Phosphatase 100 (46-116) U/L Troponin I High Sens 40 (<=76) ng/L C-Reactive Protein 2.3 H (<=0.9) mg/dL Total Protein 5.7 L (6.4-8.2) g/dL Albumin 2.6 L (3.4-5.0) g/dL Globulin 3.1 Albumin/Globulin Ratio 0.84 Urine Color (YELLOW) Urine Appearance (CLEAR) Urine pH (5.0-8.0) Ur Specific [place] Urine Protein (NEGATIVE) mg/dL Urine Glucose (UA) (NEGATIVE) mg/dL Urine Ketones (NEGATIVE) mg/dL Urine Occult Blood (NEGATIVE) Urine Nitrite (NEGATIVE) Urine Bilirubin (NEGATIVE) Urine Urobilinogen (0.2) EU/dL Ur Leukocyte Esterase (NEGATIVE) SARS CoV-2 RNA Rapid GILBERTO (NEGATIVE) Blood Type Gel Antibody Screen Crossmatch 10/24/20 10/24/20 10/24/20 Range/Units 20:03 20:03 20:15 WBC (4.0-10.0) x10^3/uL RBC (4.5-6.0) x10^6/uL Hgb (14.0-18.0) g/dL Hct (40.0-52.0) % MCV (78.0-93.0) fL MCH (26.0-32.0) pg MCHC (32.0-36.0) g/dL RDW Coeff of Reuben (10.0-15.0) % Plt Count (130-400) x10^3/uL Neut % (Auto) (50.0-80.0) % Lymph % (Auto) (25.0-50.0) % [place] % (Auto) (2.0-11.0) % Eos % (Auto) (0.0-4.0) % Baso % (Auto) (0.2-1.2) % PT (9.9-12.5) SEC INR (2.0-3.5) APTT (25.6-32.8) SEC Sodium (136-145) mmol/L Potassium (3.5-5.1) mmol/L Chloride (98-107) mmol/L Carbon Dioxide (21-32) mmol/L Anion Gap (5-15) mmol/L BUN (7-18) mg/dL Creatinine (0.70-1.30) mg/dL Est Cr Clr Drug Dosing mL/min Estimated GFR (MDRD) Glucose (74-106) mg/dL Lactic Acid 1.5 (0.4-2.0) mmol/L Calcium (8.5-10.1) mg/dL Corrected Calcium (8.5-10.1) mg/dL Total Bilirubin (0.2-1.0) mg/dL AST (15-37) U/L ALT (16-63) U/L Alkaline Phosphatase (46-116) U/L Troponin I High Sens (<=76) ng/L C-Reactive Protein (<=0.9) mg/dL Total Protein (6.4-8.2) g/dL Albumin (3.4-5.0) g/dL Globulin Albumin/Globulin Ratio Urine Color (YELLOW) Urine Appearance (CLEAR) Urine pH (5.0-8.0) Ur Specific [place] Urine Protein (NEGATIVE) mg/dL Urine Glucose (UA) (NEGATIVE) mg/dL Urine Ketones (NEGATIVE) mg/dL Urine Occult Blood (NEGATIVE) Urine Nitrite (NEGATIVE) Urine Bilirubin (NEGATIVE) Urine Urobilinogen (0.2) EU/dL Ur Leukocyte Esterase (NEGATIVE) SARS CoV-2 RNA Rapid GILBERTO Negative (NEGATIVE) Blood Type B NEGATIVE Gel Antibody Screen Negative Crossmatch See Detail 10/24/20 Range/Units 20:43 WBC (4.0-10.0) x10^3/uL RBC (4.5-6.0) x10^6/uL Hgb (14.0-18.0) g/dL Hct (40.0-52.0) % MCV (78.0-93.0) fL MCH (26.0-32.0) pg MCHC (32.0-36.0) g/dL RDW Coeff of Reuben (10.0-15.0) % Plt Count (130-400) x10^3/uL Neut % (Auto) (50.0-80.0) % Lymph % (Auto) (25.0-50.0) % [place] % (Auto) (2.0-11.0) % Eos % (Auto) (0.0-4.0) % Baso % (Auto) (0.2-1.2) % PT (9.9-12.5) SEC INR (2.0-3.5) APTT (25.6-32.8) SEC Sodium (136-145) mmol/L Potassium (3.5-5.1) mmol/L Chloride (98-107) mmol/L Carbon Dioxide (21-32) mmol/L Anion Gap (5-15) mmol/L BUN (7-18) mg/dL Creatinine (0.70-1.30) mg/dL Est Cr Clr Drug Dosing mL/min Estimated GFR (MDRD) Glucose (74-106) mg/dL Lactic Acid (0.4-2.0) mmol/L Calcium (8.5-10.1) mg/dL Corrected Calcium (8.5-10.1) mg/dL Total Bilirubin (0.2-1.0) mg/dL AST (15-37) U/L ALT (16-63) U/L Alkaline Phosphatase (46-116) U/L Troponin I High Sens (<=76) ng/L C-Reactive Protein (<=0.9) mg/dL Total Protein (6.4-8.2) g/dL Albumin (3.4-5.0) g/dL Globulin Albumin/Globulin Ratio Urine Color Yellow (YELLOW) Urine Appearance Clear (CLEAR) Urine pH 8.5 H (5.0-8.0) Ur Specific [place] 1.020 Urine Protein Negative (NEGATIVE) mg/dL Urine Glucose (UA) Negative (NEGATIVE) mg/dL Urine Ketones Negative (NEGATIVE) mg/dL Urine Occult Blood Negative (NEGATIVE) Urine Nitrite Negative (NEGATIVE) Urine Bilirubin Negative (NEGATIVE) Urine Urobilinogen 1.0 (0.2) EU/dL Ur Leukocyte Esterase Negative (NEGATIVE) SARS CoV-2 RNA Rapid GILBERTO (NEGATIVE) Blood Type Gel Antibody Screen Crossmatch Meds: Medications Discontinued Medications Generic Name Dose Route Start Last Admin Trade Name Freq PRN Reason Stop Dose Admin Acetaminophen 650 mg 10/24/20 22:27 10/25/20 13:42 Acetaminophen 325 Mg Tab PO 650 mg Q4H PRN Administration Pain (Mild 1-3)/fever Hydrocodone Bitart/Acetaminophen 1 tab 10/24/20 23:04 10/25/20 13:41 Acetaminophen/Hydrocodone 325-10 Mg Tab PO 1 tab Q3H PRN Administration Pain (moderate 4-6) Calcium Carbonate/Glycine 750 mg 10/25/20 08:00 10/25/20 09:07 Calcium Carbonate 750 Mg Tab.Chew PO Not Given BIDMEALS SHANNON Citalopram Hydrobromide 20 mg 10/25/20 08:00 10/25/20 08:53 Citalopram 20 Mg Tab PO 20 mg DAILY SHANNON Administration Ferrous Sulfate 325 mg 10/25/20 08:00 10/25/20 08:53 Ferrous Sulfate 325 Mg Tab PO 325 mg DAILY SHANNON Administration Fluticasone Propionate 0 ml 10/25/20 08:00 10/25/20 08:52 Fluticasone Propionate Nasal [place] 9.9 Ml Bottle NASBOTH 1 sprays BID SHANNON Administration Furosemide 40 mg 10/25/20 08:00 10/25/20 08:53 Furosemide 20 Mg Tab PO 40 mg DAILY SHANNON Administration Lactated Ringer's 1,000 mls @ 75 mls/hr 10/24/20 21:15 10/25/20 07:11 Ringers, Lactated IV 75 mls/hr ASDIRECTED SHANNON Administration Iopamidol 100 ml 10/24/20 21:05 10/24/20 21:37 Iopamidol 612 Mg/Ml 100 Ml Bottle IVPUSH 10/24/20 21:06 100 ml ONETIME ONE Administration Isosorbide Mononitrate 30 mg 10/25/20 08:00 10/25/20 08:53 Isosorbide Mononitrate 30 Mg Tab.Er PO 30 mg QAM SHANNON Administration Magnesium Oxide 400 mg 10/25/20 08:00 10/25/20 08:55 Magnesium Oxide 400 Mg Tab PO 400 mg DAILY SHANNON Administration Melatonin 3 mg 10/25/20 20:00 Melatonin 3 Mg Tab PO BEDTIME SHANNON Metoprolol Succinate 12.5 mg 10/25/20 08:00 10/25/20 08:54 Metoprolol Succinate 25 Mg Tab.Er PO 12.5 mg DAILY SHANNON Administration Metoprolol Tartrate 2.5 mg 10/25/20 02:21 10/25/20 02:41 Metoprolol Tartrate 5 Mg/5 Ml Sdv IVPUSH 10/25/20 02:22 Not Given ONETIME ONE Metoprolol Tartrate 2.5 mg 10/25/20 02:21 10/25/20 02:29 Metoprolol Tartrate 5 Mg/5 Ml Sdv IVPUSH 10/25/20 02:22 2.5 mg ONETIME STA Administration Metoprolol Tartrate 2.5 mg 10/25/20 03:33 10/25/20 03:44 Metoprolol Tartrate 5 Mg/5 Ml Sdv IVPUSH 10/25/20 03:34 2.5 mg ONETIME STA Administration Multivitamins/Minerals 1 tab 10/25/20 08:00 10/25/20 08:55 Multivitamins With Iron/Calcium/Folic Acid/Minerals Tab PO 1 tab DAILY SHANNON Administration Ondansetron HCl 4 mg 10/24/20 22:27 Ondansetron 4 Mg/2 Ml Sdv IV Q6H PRN Nausea/Vomiting Pantoprazole Sodium 80 mg 10/24/20 20:58 10/24/20 21:45 Pantoprazole 40 Mg Vial IVPUSH 10/24/20 20:59 80 mg ONETIME ONE Administration Pantoprazole Sodium 40 mg 10/25/20 09:00 10/25/20 08:52 Pantoprazole 40 Mg Vial IVPUSH 40 mg Q12H SHANNON Administration Phytonadione 5 mg 10/24/20 21:47 10/24/20 22:22 Phytonadione 5 Mg Tab PO 10/24/20 21:48 5 mg ONETIME ONE Administration Potassium Chloride 10 meq 10/25/20 08:00 10/25/20 08:53 Potassium Chloride 10 Meq Tab.Er PO 10 meq DAILY SHANNON Administration Prednisone 3 mg 10/25/20 09:00 10/25/20 08:54 Prednisone 1 Mg Tab PO 3 mg [id number] SHANNON Administration Prednisone 5 mg 10/28/20 09:00 Prednisone 5 Mg Tab PO [id number] SHANNON Sodium Chloride 10 ml 10/24/20 19:46 10/25/20 03:51 Sodium Chloride 0.9% 10 Ml Syringe FLUSH 10 ml ASDIRECTED PRN Administration Keep Vein Open Trazodone HCl 50 - 100 mg 10/25/20 20:00 Trazodone 50 Mg Tab PO BEDTIME SHANNON Trazodone HCl 50 mg 10/24/20 23:45 10/24/20 23:50 Trazodone 50 Mg Tab PO 10/24/20 23:46 50 mg BEDTIME ONE Administration - Radiology Interpretation Free Text/Narrative:: Please see radiology report NO diverticulitis. - Re-Assessments/Exams Free Text/Narrative Re-Assessment/Exam: EKG with A fib chronic for him controlled rate in the mid 80s. IV established labs were drawn. Initial laboratory evaluation shows a CBC with a WBC of 8.6 and hemoglobin of 8.6 which is down from 11.6 from approximately 20 days ago. Platelet count 152. INR 1.9, PTT 21. CMP with normal sodium 142, CO2 38, BUN 21, creatinine 1.0. Liver enzymes are normal., Total protein 5.7 albumin 2.6. Urinalysis is negative. Covid screening for admission is negative. Troponin is negative at 40. This patient clearly has a lower gastrointestinal hemorrhage. He was given 80 mg of Protonix IV push in the emergency department. He was also given 5 mg of oral vitamin K to reverse his Coumadin. He has a very tenuous congestive heart failure history and he clearly has dropped 3 g a hemoglobin in the last 20 days. Unsure of if he is actively still bleeding. His CT scan is rather unremarkable does not show any diverticulitis. We will admit him into the hospital under observation at this time with serial hemoglobins. Hold his Coumadin. I did verify with him that he does not want any aggressive management such as colonoscopy to stop the bleeding and he would like medical management initially. He does reiterate to me that he is a DNR/DNI. He is comfortable with this plan and his questions are answered. I will speak with his primary care provider in the morning Dr. Valerie Alfonso about assuming his care. Departure - Departure Time of Disposition: 22:00 Disposition: Refer to Observation Clinical Impression: Gastrointestinal bleeding, lower, retirement (current) use of anticoagulants Anemia Qualifiers: Anemia type: other cause Other causes of anemia: other cause, not classified Q ualified Code(s): D64.89 - Other specified anemias - Discharge Information Sepsis Event Note (ED) - Evaluation Sepsis Screening Result: No Definite Risk - Problem List & Annotations (1) Gastrointestinal bleeding, lower SNOMED Code(s): 72652004 Code(s): K92.2 - GASTROINTESTINAL HEMORRHAGE, UNSPECIFIED Status: Acute Priority: High (2) Anemia SNOMED Code(s): 879837451 Code(s): D64.9 - ANEMIA, UNSPECIFIED Status: Acute Priority: High Qualifiers: Anemia type: other cause Other causes of anemia: other cause, not classified Qualified Code(s): D64.89 - Other specified anemias (3) retirement (current) use of anticoagulants SNOMED Code(s): 674501111 Code(s): Z79.01 - NURSING HOME (CURRENT) USE OF ANTICOAGULANTS Status: Chronic Priority: High - My Orders Last 24 Hours: My Active Orders 10/24/20 19:46 Peripheral IV Insertion Adult [OM.PC] Stat 10/24/20 20:07 Abdomen Pelvis w Cont [CT] Stat - Assessment/Plan Admission H&P: Please use this note as an admission H&P Last 24 Hours: My Active Orders 10/24/20 19:46 Peripheral IV Insertion Adult [OM.PC] Stat 10/24/20 20:07 Abdomen Pelvis w Cont [CT] Stat Assessment:: A/P #1: Lower GI Bleed. Hemoglobin 8.6 which is down from 11.620 days ago. He was typed and screened. We will transfuse if he gets his hemoglobin below 8 as he has a cardiac patient. Every 6 hours hemoglobin and hematocrit. Typically I would start him on 8 mg an hour of Protonix although with his history of frailty and congestive heart failure I do not want the extra fluid for him at this time. I will give him Protonix 40 mg IV push twice daily. We will also hold his Coumadin. #2: retirement anticoagulation. Typically on Coumadin for his atrial fibrill ation. We will hold this at the time. He was given 5 mg of oral vitamin K in the emergency department. We will follow his INR daily. #3: A fib. We will hold his Coumadin at this time as he is having an active hemorrhage. We will keep him on his metoprolol. Telemetry monitoring. #4: CHF HX. No evidence of exacerbation at this time. Will keep his Lasix in place as he is quite tenuous and goes into failure quite easily. We will be very cautious on fluid administration and keep him locked on his saline at this time as he has had good blood pressures and good urinary output for so far. #5: Anemia: Acute blood loss. Due to #1. We will follow his hemoglobin and hematocrit every 6 hours. He is also on long-term anticoagulation. We will transfuse him if his hemoglobin gets below 8 or he is having problems with hypotension. DVT. Compression stockings at this time active hemorrhage no anticoagulation indicated for VTE due to the active hemorrhage. Sepsis: No sign of sepsis at this time. Continue to monitor. DNR/DNI CODE STATUS. Patient will be admitted into the hospital under observation and management under my service tonight. Will most likely be taken over by his primary care provider Dr. Valerie Alfonso in the morning. We will closely monitor his hemoglobins throughout the night. If his bleeding continues and he is required to get blood transfusion we will most likely change him to acute management. If his bleeding stops we should be able to discharge him rather soon home if his hemoglobin stabilizes and he is feeling well. This will determine our course of action while he is in the hospital his bleeding status. He and his family are comfortable with this plan and their questions are answered.
--- NOTE | 2020-10-25 02:59 | PCM.SN.2 ---
- Free Text/Narrative Note: Shortly after the patient was placed into the hospital under observation for his gastrointestinal hemorrhage. He had a moderate-sized bowel movement that was rather foul-smelling maroon in color and tarry consistent with a lower GI bleed. Shortly thereafter he became quite tachycardic with a rate in the 130s to the 140s. With a stable blood pressure of about 100 systolically. He had no chest pain shortness of breath or difficulty breathing. No palpitations and he actually had was asymptomatic at that time. Twelve-lead EKG was completed at that time that showed sinus tachycardia rate of [address] depression in the lateral leads which is most likely rate related. Again this patient is asymptomatic. He did drop his blood pressure to about 90 systolically. He was given a 500 mill bolus then continued at 75 mils an hour. Left to be cautious with his fluid resuscitation as he does have pretty tenuous congestive heart failure. He had no more bloody stools following the above therapy. 0200 hrs. we repeated his hemoglobin which was 8.5 which is really unchanged from his previous hemoglobin of 8.6. His INR has somewhat improved down to 1.6. We are currently holding his Coumadin and he did receive 5 mg of Vitamin K in the emergency department orally. After the 500 mill bolus and then the infusion he continued to be tachycardic in the 130s to the 140s. I am unsure of what is causing his tachycardia at this time. He is asymptomatic with this. He was given 2.5 mg of Lopressor IV with improvement of his heart rate down to about 100 bpm. We will continue to monitor him closely. It does not appear that he continues to have any bleeding at this time as his Hgb is stable and no more rectal bleeding. Although we will continue to follow with serial hemoglobin and hematocrits. Close observation of his heart rate and blood pressure.
[2020-10-25] MEDS: Acetaminophen/HYDROcodone 325-10 MG Tab PO PRN ×3 (05:03→13:41)
[2020-10-25] MEDS: Lactated Ringers 1,000 ML IV SCH ×2 (07:11)
[2020-10-25 07:13] LABS: CHLORIDE,CL 102 mmol/L (98-107); PTT,PARTIAL THROMBOPLSTIN TIME 29.9 SEC (25.6-32.8); SODIUM,NA 141 mmol/L (136-145)
[2020-10-25 07:15] LABS: ANION GAP 7.4 mmol/L (5-15)
[2020-10-25] MEDS ORDERED: Calcium Carbonate 750 MG Tab.Chew PO SCH (08:00)
[2020-10-25] MEDS ORDERED: Furosemide 20 MG Tab PO SCH (08:00)
[2020-10-25] MEDS ORDERED: Fluticasone Propionate Nasal Spray 9.9 ML BOTTLE NASBOTH SCH (08:00)
[2020-10-25] MEDS ORDERED: Magnesium Oxide 400 MG Tab PO SCH (08:00)
[2020-10-25] MEDS ORDERED: Ferrous Sulfate 325 MG Tab PO SCH (08:00)
[2020-10-25] MEDS ORDERED: Potassium Chloride 10 MEQ Tab.ER PO SCH (08:00)
[2020-10-25] MEDS ORDERED: Isosorbide Mononitrate 30 MG Tab.ER PO SCH (08:00)
[2020-10-25] MEDS ORDERED: Citalopram 20 MG Tab PO SCH (08:00)
[2020-10-25] MEDS ORDERED: Multivitamins with Iron/Calcium/Folic Acid/Minerals Tab PO SCH (08:00)
[2020-10-25] MEDS ORDERED: Metoprolol Succinate 25 MG Tab.ER PO SCH (08:00)
[2020-10-25] MEDS ORDERED: Pantoprazole 40 MG Vial IVPUSH SCH (09:00)
[2020-10-25] MEDS ORDERED: predniSONE 1 MG Tab PO SCH (09:00)
--- NOTE | 2020-10-25 09:37 | PN ---
Progress Note for MERARI SALGADO Date: 10/25/2020 Room #: VM.212 SUBJECTIVE: Hospital day #2 on an 80-year-old admitted last evening due to bright red blood per rectum that just started yesterday. He had 3 episodes at home, associated with a little bit of diarrhea. said there was quite a bit of blood. It just made all the toilet water red. There were no clots. He had one such episode while in the hospital. At that point, his heart rate became faster and his blood pressure dropped. He responded to a bolus of fluid and then did get some IV metoprolol. He does have a known history of atrial fibrillation and had been on Coumadin for that and his INR was 1.9 in the ER. He had been 2.9 earlier this month, but had not had any checks in between. He has not had any stomach pain or abdominal pain. He does have a history of diverticulosis. Last colonoscopy was in 2015. He did have a tiny hyperplastic polyp. The patient has not had any cough. No shortness of breath. He has actually felt quite good, sleeping quite well now that he is on oxygen at night. He has a significant history of heart failure, but he has not had any chest pain. The patient actually feels well this morning and is hoping to go home. OBJECTIVE: Vital Signs: His weight is 59.8 kg, temperature 98.3, pulse 86, blood pressure 122/54, respiratory rate 18, and O2 of 97 on 2 L. General: He is in no acute distress. Heart: Irregularly irregular with murmur. Lungs: Lung sounds are clear to auscultation bilaterally without crackles or wheezes. Abdomen: Positive bowel sounds. Soft, nondistended, nontender. Extremities: Warm and dry. Just trace edema at his feet. Mental Status: He is alert and orientated x3. LABORATORY DATA: Laboratory work did show white count 8.6, hemoglobin down to 8.1, it was 8.6 last night. His last hemoglobin in the clinic on the was 10.9. Ferritin 509. His platelets were 155. INR down to 1.4 this morning after 5 mg of p.o. vitamin K. Sodium 141, potassium 4.4, chloride 102, bicarb 36, BUN 19, creatinine 0.9, glucose 100, calcium 8.7. ASSESSMENT AND PLAN: 1. Acute gastrointestinal bleeding, likely lower gastrointestinal source, probably a diverticular bleed. No further bleeding since reversing coumadin. Discussed with the patient the risks and benefits of stopping anticoagulation including increased risk for stroke. The patient agrees that he would like to go off Coumadin. This may take care of the problem, but he does also understand the need for a followup colonoscopy in a few weeks. 2. Atrial fibrillation with rapid ventricular response. He is on oral Toprol. His rates seem to be better now. Suggested to the patient that I observe him for several more hours today and repeat a hemoglobin this afternoon and see about discharge home then. 3. Acute on chronic anemia due to blood loss from gastrointestinal bleeding. The patient clinically is currently doing better. Hemoglobin was 8.6 last night now 8.1. Decided with the patient to hold off on a blood transfusion currently as he is not having any angina and his tachycardia has resolved. 4. Chronic systolic heart failure with ejection fraction around 30% with pulmonary hypertension and mitral regurgitation. The patient is clinically stable. We will continue his current doses of Lasix and stop fluids 5. Chronic bronchitis. He is on oxygen. He is not having any exacerbation. 6. Chronic hip pain. He is on hydrocodone. He is under palliative care. The patient will continue on observation with likely discharge home later today. Hold further transfusions. Repeat a hgb at noon. MKA: 10/25/2020 09:08:36 MODL: 10/25/2020 09:32:58 /[id number] MTDRodney
--- NOTE | 2020-10-25 13:35 | PCM.DCSUM1 ---
Discharge Summary - Hospital Course Free Text/Narrative:: 80 yo admitted for a lower GI bleed for observation. Did have a maroon stool here then had hypotension and a. fib with RVR. Was given a 500 mg fluid bolus and his IV metoprolol and HR were improved. He felt well otherwise with no chest pain or SOB. He has had no abdominal pain and did get IV protonix. Colonoscopy did show diverticulosis in 2016 with a hyperplastic polyp. He had vitamin K and INR decreased to 1.4 and he does not want to continue coumadin and I do support that. He had no further stools this AM and is tolerating a diet. Albright initially week but has been up and ambulation so we cancelled the blood transfusion and his hgb was 8.1 this AM went up to 8.6 by noon and he was discharged home for outpatient follow up. oxygen turned down to 2 L he was in the high 90s on 3.5 L here. - Discharge Data Discharge Date: 10/25/20 Discharge Disposition: Home, Self-Care 01 Condition: Fair - Referral to Home Health Primary Care Physician: Patricia Alfonso, DO - Discharge Diagnosis/Problem(s) (1) Anemia SNOMED Code(s): 742289047 ICD Code: D64.9 - ANEMIA, UNSPECIFIED Status: Acute Priority: High Current Visit: Yes Qualifiers: Anemia type: other cause Other causes of anemia: other cause, not classified Qualified Code(s): D64.89 - Other specified anemias (2) Gastrointestinal bleeding, lower SNOMED Code(s): 31664463 ICD Code: K92.2 - GASTROINTESTINAL HEMORRHAGE, UNSPECIFIED Status: Acute Priority: High Current Visit: Yes (3) correction (current) use of anticoagulants SNOMED Code(s): 949101187 ICD Code: Z79.01 - LONGTERM (CURRENT) USE OF ANTICOAGULANTS Status: Chronic Priority: High Current Visit: Yes (4) Atrial fibrillation with RVR SNOMED Code(s): 553010740532352 ICD Code: I48.91 - UNSPECIFIED ATRIAL FIBRILLATION Status: Chronic Priority: High Current Visit: Yes (5) CHF (congestive heart failure) SNOMED Code(s): 05267399 ICD Code: I50.9 - HEART FAILURE, UNSPECIFIED Status: Chronic Priority: Medium Current Visit: No Qualifiers: Heart failure type: combined systolic and diastolic Heart failure chr onicity: chronic Qualified Code(s): I50.42 - Chronic combined systolic (congestive) and diastolic (congestive) heart failure - Patient Summary/Data Consults: Consultations 10/25/20 08:57 PT Evaluation and Treatment [CONS] Routine - Patient Instructions Diet: Usual Diet as Tolerated Activity: As Tolerated Notify Provider of: Fever, Increased Pain, Nausea and/or Vomiting - Discharge Plan *PRESCRIPTION DRUG MONITORING PROGRAM REVIEWED*: Not Applicable (I follow this closely through the clinic no new narcotics prescribed here) *COPY OF PRESCRIPTION DRUG MONITORING REPORT IN PATIENT RADHA: Not Applicable Home Medications: Home Meds Multivitamin with Minerals [Multivitamins with Minerals] 1 tab PO DAILY 05/23/15 [History] predniSONE [Prednisone] 5 mg PO ASDIRECTED 05/23/15 [History] Hydrocodone/Acetaminophen [Hydrocodone-Acetamin 10-325 mg] 1 - 2 tab PO Q3H PRN 10/13/17 [History] predniSONE [Prednisone] 3 mg PO ASDIRECTED 10/13/17 [History] Cholecalciferol (Vitamin D3) [Vitamin D3] 400 unit PO DAILY 01/31/20 [History] Ferrous Sulfate 325 mg PO DAILY 90 Days #30 tablet 02/03/20 [Rx] Citalopram [Citalopram HBr] 20 mg PO DAILY 03/18/20 [History] Melatonin 3 mg PO BEDTIME tablet 05/04/20 [Rx] Metoprolol Succinate [Toprol XL] 12.5 mg PO DAILY 05/29/20 [History] Calcium Carbonate/Vitamin D3 [Caltrate 600 Plus D3 Tablet] 1 tab PO BIDMEALS 10/02/20 [History] Denosumab [Prolia] 60 mg SUBCUT Q180D 10/02/20 [History] Fluticasone Propionate [Flonase] 50 mcg NASBOTH BID 10/02/20 [History] Isosorbide Mononitrate [Imdur] 30 mg PO QAM 10/02/20 [History] Magnesium Oxide 400 mg PO DAILY 10/02/20 [History] traZODone HCl [Trazodone HCl] 50 - 100 mg PO BEDTIME 10/02/20 [History] Furosemide 40 mg PO DAILY #0 10/03/20 [Rx] Potassium Chloride [Klor-Con 10] 10 meq PO DAILY #30 tab.er 10/03/20 [Rx] Oxygen Therapy Mode: Nasal Cannula Patient Handouts: Chronic Obstructive Pulmonary Disease, [id number] Forms: ED Department Discharge Referrals: Patricia Alfonso DO [Primary Care Provider] - - Discharge Summary/Plan Comment DC Time >30 min.: No - General Info Date of Service: 10/25/20 - Patient Data Vitals - Most Recent: Last Vital Signs Temp 98.0 F 10/25/20 10:00 Pulse 93 10/25/20 10:00 Resp 18 10/25/20 10:00 BP 116/71 10/25/20 10:00 Pulse Ox 98 10/25/20 10:00 Weight - Most Recent: 59.874 kg I&O - Last 24 hours: Intake & Output 10/24/20 10/25/20 10/25/20 22:59 06:59 14:59 Intake Total 120 Output Total 250 Balance -250 120 Lab Results - Last 24 hrs: Laboratory Results - last 24 hr 10/24/20 10/24/20 10/24/20 Range/Units 20:03 20:03 20:03 WBC 8.8 (4.0-10.0) x10^3/uL RBC 3.11 L (4.5-6.0) x10^6/uL Hgb 8.6 L D (14.0-18.0) g/dL Hct 29.4 L (40.0-52.0) % MCV 94.5 H (78.0-93.0) fL MCH 27.7 (26.0-32.0) pg MCHC 29.3 L (32.0-36.0) g/dL RDW Coeff of Reuben 13.9 (10.0-15.0) % Plt Count 152 (130-400) x10^3/uL Neut % (Auto) 78.7 (50.0-80.0) % Lymph % (Auto) 13.9 L (25.0-50.0) % Emmet % (Auto) 5.0 (2.0-11.0) % Eos % (Auto) 1.9 (0.0-4.0) % Baso % (Auto) 0.5 (0.2-1.2) % PT 21.0 H D (9.9-12.5) SEC INR 1.9 L (2.0-3.5) APTT 32.2 (25.6-32.8) SEC Sodium 142 (136-145) mmol/L Potassium 4.7 (3.5-5.1) mmol/L Chloride 102 (98-107) mmol/L Carbon Dioxide 38 H (21-32) mmol/L Anion Gap 6.7 (5-15) mmol/L BUN 21 H (7-18) mg/dL Creatinine 1.0 (0.70-1.30) mg/dL Est Cr Clr Drug Dosing 47.87 mL/min Estimated GFR (MDRD) > 60 Glucose 96 (74-106) mg/dL Lactic Acid (0.4-2.0) mmol/L Calcium 8.7 (8.5-10.1) mg/dL Corrected Calcium 9.82 (8.5-10.1) mg/dL Total Bilirubin 0.4 (0.2-1.0) mg/dL AST 15 (15-37) U/L ALT 14 L (16-63) U/L Alkaline Phosphatase 100 (46-116) U/L Troponin I High Sens 40 (<=76) ng/L C-Reactive Protein 2.3 H (<=0.9) mg/dL Total Protein 5.7 L (6.4-8.2) g/dL Albumin 2.6 L (3.4-5.0) g/dL Globulin 3.1 Albumin/Globulin Ratio 0.84 Urine Color (YELLOW) Urine Appearance (CLEAR) Urine pH (5.0-8.0) Ur Specific [place] Urine Protein (NEGATIVE) mg/dL Urine Glucose (UA) (NEGATIVE) mg/dL Urine Ketones (NEGATIVE) mg/dL Urine Occult Blood (NEGATIVE) Urine Nitrite (NEGATIVE) Urine Bilirubin (NEGATIVE) Urine Urobilinogen (0.2) EU/dL Ur Leukocyte Esterase (NEGATIVE) SARS CoV-2 RNA Rapid GILBERTO (NEGATIVE) Blood Type Gel Antibody Screen Crossmatch 10/24/20 10/24/20 10/24/20 Range/Units 20:03 20:03 20:15 WBC (4.0-10.0) x10^3/uL RBC (4.5-6.0) x10^6/uL Hgb (14.0-18.0) g/dL Hct (40.0-52.0) % MCV (78.0-93.0) fL MCH (26.0-32.0) pg MCHC (32.0-36.0) g/dL RDW Coeff of Reuben (10.0-15.0) % Plt Count (130-400) x10^3/uL Neut % (Auto) (50.0-80.0) % Lymph % (Auto) (25.0-50.0) % Emmet % (Auto) (2.0-11.0) % Eos % (Auto) (0.0-4.0) % Baso % (Auto) (0.2-1.2) % PT (9.9-12.5) SEC INR (2.0-3.5) APTT (25.6-32.8) SEC Sodium (136-145) mmol/L Potassium (3.5-5.1) mmol/L Chloride (98-107) mmol/L Carbon Dioxide (21-32) mmol/L Anion Gap (5-15) mmol/L BUN (7-18) mg/dL Creatinine (0.70-1.30) mg/dL Est Cr Clr Drug Dosing mL/min Estimated GFR (MDRD) Glucose (74-106) mg/dL Lactic Acid 1.5 (0.4-2.0) mmol/L Calcium (8.5-10.1) mg/dL Corrected Calcium (8.5-10.1) mg/dL Total Bilirubin (0.2-1.0) mg/dL AST (15-37) U/L ALT (16-63) U/L Alkaline Phosphatase (46-116) U/L Troponin I High Sens (<=76) ng/L C-Reactive Protein (<=0.9) mg/dL Total Protein (6.4-8.2) g/dL Albumin (3.4-5.0) g/dL Globulin Albumin/Globulin Ratio Urine Color (YELLOW) Urine Appearance (CLEAR) Urine pH (5.0-8.0) Ur Specific [place] Urine Protein (NEGATIVE) mg/dL Urine Glucose (UA) (NEGATIVE) mg/dL Urine Ketones (NEGATIVE) mg/dL Urine Occult Blood (NEGATIVE) Urine Nitrite (NEGATIVE) Urine Bilirubin (NEGATIVE) Urine Urobilinogen (0.2) EU/dL Ur Leukocyte Esterase (NEGATIVE) SARS CoV-2 RNA Rapid GILBERTO Negative (NEGATIVE) Blood Type B NEGATIVE Gel Antibody Screen Negative Crossmatch See Detail 10/24/20 10/25/20 10/25/20 Range/Units 20:43 02:00 02:00 WBC (4.0-10.0) x10^3/uL RBC (4.5-6.0) x10^6/uL Hgb 8.5 L (14.0-18.0) g/dL Hct 28.6 L (40.0-52.0) % MCV (78.0-93.0) fL MCH (26.0-32.0) pg MCHC (32.0-36.0) g/dL RDW Coeff of Reuben (10.0-15.0) % Plt Count (130-400) x10^3/uL Neut % (Auto) (50.0-80.0) % Lymph % (Auto) (25.0-50.0) % Emmet % (Auto) (2.0-11.0) % Eos % (Auto) (0.0-4.0) % Baso % (Auto) (0.2-1.2) % PT 17.8 H (9.9-12.5) SEC INR 1.6 L (2.0-3.5) APTT 31.3 (25.6-32.8) SEC Sodium (136-145) mmol/L Potassium (3.5-5.1) mmol/L Chloride (98-107) mmol/L Carbon Dioxide (21-32) mmol/L Anion Gap (5-15) mmol/L BUN (7-18) mg/dL Creatinine (0.70-1.30) mg/dL Est Cr Clr Drug Dosing mL/min Estimated GFR (MDRD) Glucose (74-106) mg/dL Lactic Acid (0.4-2.0) mmol/L Calcium (8.5-10.1) mg/dL Corrected Calcium (8.5-10.1) mg/dL Total Bilirubin (0.2-1.0) mg/dL AST (15-37) U/L ALT (16-63) U/L Alkaline Phosphatase (46-116) U/L Troponin I High Sens (<=76) ng/L C-Reactive Protein (<=0.9) mg/dL Total Protein (6.4-8.2) g/dL Albumin (3.4-5.0) g/dL Globulin Albumin/Globulin Ratio Urine Color Yellow (YELLOW) Urine Appearance Clear (CLEAR) Urine pH 8.5 H (5.0-8.0) Ur Specific [place] 1.020 Urine Protein Negative (NEGATIVE) mg/dL Urine Glucose (UA) Negative (NEGATIVE) mg/dL Urine Ketones Negative (NEGATIVE) mg/dL Urine Occult Blood Negative (NEGATIVE) Urine Nitrite Negative (NEGATIVE) Urine Bilirubin Negative (NEGATIVE) Urine Urobilinogen 1.0 (0.2) EU/dL Ur Leukocyte Esterase Negative (NEGATIVE) SARS CoV-2 RNA Rapid GILBERTO (NEGATIVE) Blood Type Gel Antibody Screen Crossmatch 10/25/20 10/25/20 10/25/20 Range/Units 06:40 06:40 06:40 WBC 8.6 (4.0-10.0) x10^3/uL RBC 2.92 L (4.5-6.0) x10^6/uL Hgb 8.1 L (14.0-18.0) g/dL Hct 27.6 L (40.0-52.0) % MCV 94.5 H (78.0-93.0) fL MCH 27.7 (26.0-32.0) pg MCHC 29.3 L (32.0-36.0) g/dL RDW Coeff of Reuben 13.7 (10.0-15.0) % Plt Count 155 (130-400) x10^3/uL Neut % (Auto) 77.5 (50.0-80.0) % Lymph % (Auto) 13.7 L (25.0-50.0) % Emmet % (Auto) 5.6 (2.0-11.0) % Eos % (Auto) 2.6 (0.0-4.0) % Baso % (Auto) 0.6 (0.2-1.2) % PT 15.9 H (9.9-12.5) SEC INR 1.4 L (2.0-3.5) APTT 29.9 (25.6-32.8) SEC Sodium 141 (136-145) mmol/L Potassium 4.4 (3.5-5.1) mmol/L Chloride 102 (98-107) mmol/L Carbon Dioxide 36 H (21-32) mmol/L Anion Gap 7.4 (5-15) mmol/L BUN 19 H (7-18) mg/dL Creatinine 0.9 (0.70-1.30) mg/dL Est Cr Clr Drug Dosing 53.19 mL/min Estimated GFR (MDRD) > 60 Glucose 100 (74-106) mg/dL Lactic Acid (0.4-2.0) mmol/L Calcium 8.7 (8.5-10.1) mg/dL Corrected Calcium (8.5-10.1) mg/dL Total Bilirubin (0.2-1.0) mg/dL AST (15-37) U/L ALT (16-63) U/L Alkaline Phosphatase (46-116) U/L Troponin I High Sens (<=76) ng/L C-Reactive Protein (<=0.9) mg/dL Total Protein (6.4-8.2) g/dL Albumin (3.4-5.0) g/dL Globulin Albumin/Globulin Ratio Urine Color (YELLOW) Urine Appearance (CLEAR) Urine pH (5.0-8.0) Ur Specific [place] Urine Protein (NEGATIVE) mg/dL Urine Glucose (UA) (NEGATIVE) mg/dL Urine Ketones (NEGATIVE) mg/dL Urine Occult Blood (NEGATIVE) Urine Nitrite (NEGATIVE) Urine Bilirubin (NEGATIVE) Urine Urobilinogen (0.2) EU/dL Ur Leukocyte Esterase (NEGATIVE) SARS CoV-2 RNA Rapid GILBERTO (NEGATIVE) Blood Type Gel Antibody Screen Crossmatch 10/25/20 Range/Units 12:00 WBC (4.0-10.0) x10^3/uL RBC (4.5-6.0) x10^6/uL Hgb 8.6 L (14.0-18.0) g/dL Hct 28.8 L (40.0-52.0) % MCV (78.0-93.0) fL MCH (26.0-32.0) pg MCHC (32.0-36.0) g/dL RDW Coeff of Reuben (10.0-15.0) % Plt Count (130-400) x10^3/uL Neut % (Auto) (50.0-80.0) % Lymph % (Auto) (25.0-50.0) % Emmet % (Auto) (2.0-11.0) % Eos % (Auto) (0.0-4.0) % Baso % (Auto) (0.2-1.2) % PT (9.9-12.5) SEC INR (2.0-3.5) APTT (25.6-32.8) SEC Sodium (136-145) mmol/L Potassium (3.5-5.1) mmol/L Chloride (98-107) mmol/L Carbon Dioxide (21-32) mmol/L Anion Gap (5-15) mmol/L BUN (7-18) mg/dL Creatinine (0.70-1.30) mg/dL Est Cr Clr Drug Dosing mL/min Estimated GFR (MDRD) Glucose (74-106) mg/dL Lactic Acid (0.4-2.0) mmol/L Calcium (8.5-10.1) mg/dL Corrected Calcium (8.5-10.1) mg/dL Total Bilirubin (0.2-1.0) mg/dL AST (15-37) U/L ALT (16-63) U/L Alkaline Phosphatase (46-116) U/L Troponin I High Sens (<=76) ng/L C-Reactive Protein (<=0.9) mg/dL Total Protein (6.4-8.2) g/dL Albumin (3.4-5.0) g/dL Globulin Albumin/Globulin Ratio Urine Color (YELLOW) Urine Appearance (CLEAR) Urine pH (5.0-8.0) Ur Specific [place] Urine Protein (NEGATIVE) mg/dL Urine Glucose (UA) (NEGATIVE) mg/dL Urine Ketones (NEGATIVE) mg/dL Urine Occult Blood (NEGATIVE) Urine Nitrite (NEGATIVE) Urine Bilirubin (NEGATIVE) Urine Urobilinogen (0.2) EU/dL Ur Leukocyte Esterase (NEGATIVE) SARS CoV-2 RNA Rapid GILBERTO (NEGATIVE) Blood Type Gel Antibody Screen Crossmatch Med Orders - Current: Current Medications Acetaminophen (Acetaminophen 325 Mg Tab) 650 mg PO Q4H PRN PRN Reason: Pain (Mild 1-3)/fever Hydrocodone Bitart/Acetaminophen (Acetaminophen/Hydrocodone 325-10 Mg Tab) 1 tab PO Q3H PRN PRN Reason: Pain (moderate 4-6) Last Admin: 10/25/20 09:06 Dose: 1 tab Documented by: Calcium Carbonate/Glycine (Calcium Carbonate 750 Mg Tab.Chew) 750 mg PO BIDMEALS [facility] Last Admin: 10/25/20 09:07 Dose: Not Given Documented by: Citalopram Hydrobromide (Citalopram 20 Mg Tab) 20 mg PO DAILY [facility] Last Admin: 10/25/20 08:53 Dose: 20 mg Documented by: Ferrous Sulfate (Ferrous Sulfate 325 Mg Tab) 325 mg PO DAILY [facility] Last Admin: 10/25/20 08:53 Dose: 325 mg Documented by: Fluticasone Propionate (Fluticasone Propionate Nasal [place] 9.9 Ml Bottle) 0 ml NASBOTH BID [facility] Last Admin: 10/25/20 08:52 Dose: 1 sprays Documented by: Furosemide (Furosemide 20 Mg Tab) 40 mg PO DAILY [facility] Last Admin: 10/25/20 08:53 Dose: 40 mg Documented by: Isosorbide Mononitrate (Isosorbide Mononitrate 30 Mg Tab.Er) 30 mg PO QAM [facility] Last Admin: 10/25/20 08:53 Dose: 30 mg Documented by: Magnesium Oxide (Magnesium Oxide 400 Mg Tab) 400 mg PO DAILY [facility] Last Admin: 10/25/20 08:55 Dose: 400 mg Documented by: Melatonin (Melatonin 3 Mg Tab) 3 mg PO BEDTIME [facility] Metoprolol Succinate (Metoprolol Succinate 25 Mg Tab.Er) 12.5 mg PO DAILY [facility] Last Admin: 10/25/20 08:54 Dose: 12.5 mg Documented by: Multivitamins/Minerals (Multivitamins With Iron/Calcium/Folic Acid/Minerals Tab) 1 tab PO DAILY [facility] Last Admin: 10/25/20 08:55 Dose: 1 tab Documented by: Ondansetron HCl (Ondansetron 4 Mg/2 Ml Sdv) 4 mg IV Q6H PRN PRN Reason: Nausea/Vomiting Pantoprazole Sodium (Pantoprazole 40 Mg Vial) 40 mg IVPUSH Q12H [facility] Last Admin: 10/25/20 08:52 Dose: 40 mg Documented by: Potassium Chloride (Potassium Chloride 10 Meq Tab.Er) 10 meq PO DAILY [facility] Last Admin: 10/25/20 08:53 Dose: 10 meq Documented by: Prednisone (Prednisone 1 Mg Tab) 3 mg PO TuWeThFr@0900 [facility] Last Admin: 10/25/20 08:54 Dose: 3 mg Documented by: Prednisone (Prednisone 5 Mg Tab) 5 mg PO SuMoSa@0900 [facility] Sodium Chloride (Sodium Chloride 0.9% 10 Ml Syringe) 10 ml FLUSH ASDIRECTED PRN PRN Reason: Keep Vein Open Last Admin: 10/25/20 03:51 Dose: 10 ml Documented by: Trazodone HCl (Trazodone 50 Mg Tab) 50 - 100 mg PO BEDTIME SHANNON Discontinued Medications Lactated Ringer's (Ringers, Lactated) 1,000 mls @ 75 mls/hr IV ASDIRECTED SHANNON Last Admin: 10/25/20 07:11 Dose: 75 mls/hr Documented by: Iopamidol (Iopamidol 612 Mg/Ml 100 Ml Bottle) 100 ml IVPUSH ONETIME ONE Stop: 10/24/20 21:06 Last Admin: 10/24/20 21:37 Dose: 100 ml Documented by: Metoprolol Tartrate (Metoprolol Tartrate 5 Mg/5 Ml Sdv) 2.5 mg IVPUSH ONETIME ONE Stop: 10/25/20 02:22 Last Admin: 10/25/20 02:41 Dose: Not Given Documented by: Metoprolol Tartrate (Metoprolol Tartrate 5 Mg/5 Ml Sdv) 2.5 mg IVPUSH ONETIME STA Stop: 10/25/20 02:22 Last Admin: 10/25/20 02:29 Dose: 2.5 mg Documented by: Metoprolol Tartrate (Metoprolol Tartrate 5 Mg/5 Ml Sdv) 2.5 mg IVPUSH ONETIME STA Stop: 10/25/20 03:34 Last Admin: 10/25/20 03:44 Dose: 2.5 mg Documented by: Pantoprazole Sodium (Pantoprazole 40 Mg Vial) 80 mg IVPUSH ONETIME ONE Stop: 10/24/20 20:59 Last Admin: 10/24/20 21:45 Dose: 80 mg Documented by: Phytonadione (Phytonadione 5 Mg Tab) 5 mg PO ONETIME ONE Stop: 10/24/20 21:48 Last Admin: 10/24/20 22:22 Dose: 5 mg Documented by: Trazodone HCl (Trazodone 50 Mg Tab) 50 mg PO BEDTIME ONE Stop: 10/24/20 23:46 Last Admin: 10/24/20 23:50 Dose: 50 mg Documented by: *Q Meaningful Use (DIS) - VTE *Q VTE Pharmacological Contraindications *Q: Active Hemorrhage
[2020-10-25 14:21] VITALS: BP 119/69; PULSE 91
--- NOTE | 2020-10-25 16:59 | PCM.EKG ---
#1 Interpretation EKG Date: 10/24/20 Time: 20:13 Rhythm: A-Fib Rate (Beats/Min): 88 [place]: Normal P-Wave: Present QRS: Normal ST-T: Normal QT: Normal Comparison: Change From Previous EKG (T wave inverison)
[2020-10-25] MEDS ORDERED: traZODone 50 MG Tab PO SCH (20:00)
[2020-10-25] MEDS ORDERED: Melatonin 3 MG Tab PO SCH (20:00)
--- NOTE | 2020-10-26 09:29 | CT ---
[id number] CT/CT Abdomen Pelvis W IV EXAM: CT Abdomen Pelvis W IV CLINICAL DATA: RECTAL BLEEDING, GENERALIZED ABD PAIN COMPARISON STUDY: None. FINDINGS: Trace right and small left pleural effusions with associated compressive atelectasis. Atherosclerotic calcifications of the aorta and its branches. The heart is enlarged. Aortic valvular calcifications. Coronary artery disease. Median sternotomy wires. The gallbladder surgically absent. Generalized hypodensity liver consistent with hepatic steatosis. The spleen, and adrenal glands are unremarkable. Fatty atrophy of the pancreas. The left kidney is atrophic. Bilateral renal cortical cysts. No hydronephrosis or hydroureter. No radiodense renal calculi are identified. Multiple fluid-filled loops of small bowel. These measure up to 2.9 cm. There is gas and stool within the colon. Colonic diverticulosis without evidence of acute diverticulitis. Rectus diastases. Trace free fluid within the pelvis. Infrarenal abdominal aortic aneurysm measuring up to 3.7 cm. Scattered changes of spondylosis the spine. No fracture or suspicious osseous lesion. 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 Postsurgical changes of the left femur. IMPRESSION: 1. Small bilateral pleural effusions, left greater than right. 2. Fluid distended loops of small bowel. There is gas and stool within the colon. Findings are suggestive of ileus versus partial small bowel obstruction likely in the setting of acute enteritis. 3. Colonic diverticulosis without evidence of acute diverticulitis. Esdras Vazquez DO 10/26/20 0928 Thank you for allowing us to participate in the care of your patient.
[2020-10-28] MEDS ORDERED: predniSONE 5 MG Tab PO SCH (09:00)
== END 2020-10-25 15:05 | disposition home or self-care (01) ==
LOC: VM.ED 19:14 → VM.MS 22:01
PROVIDERS: ADMIT Nurse Practitioner Family; ATTEND Internal Medicine
DX: K92.2 Gastrointestinal hemorrhage, unspecified (principal); K57.30 Diverticulosis of large intestine without perforation or abscess without bleeding; D64.89 Other specified anemias; E78.00 Pure hypercholesterolemia, unspecified; I11.0 Hypertensive heart disease with heart failure; I50.42 Chronic combined systolic (congestive) and diastolic (congestive) heart failure; I25.10 Atherosclerotic heart disease of native coronary artery without angina pectoris; I25.2 Old myocardial infarction; J44.9 Chronic obstructive pulmonary disease, unspecified; G47.30 Sleep apnea, unspecified; I48.20 Chronic atrial fibrillation, unspecified; I82.409 Acute embolism and thrombosis of unspecified deep veins of unspecified lower extremity; Z20.822 Contact with and (suspected) exposure to COVID-19; Z79.01 Long term (current) use of anticoagulants; Z79.899 Other long term (current) drug therapy; Z88.8 Allergy status to other drugs, medicaments and biological substances; Z87.39 Personal history of other diseases of the musculoskeletal system and connective tissue; Z95.1 Presence of aortocoronary bypass graft; Z98.890 Other specified postprocedural states
CPT/HCPCS: 36415; 74177; 80048; 80053; 81003; 83605; 84484; 85014; 85018; 85025; 85610; 85730; 86140; 86850; 86900; 86901; 86920; 86922; 93005; 96374; 96375; 96376; 97161-GP; 99220; 99285-25; A9270-GY; C9113; G0378; J3490; J7120; J7512; Q9967; U0002

== ENCOUNTER 2020-10-28 11:21 | Observation (INO) | payer MEDICARE, OTHER ==
[2020-10-28] MEDS ORDERED: Sodium Chloride 0.9% 10 ML Syringe FLUSH PRN (11:46)
[2020-10-28] MEDS ORDERED: Furosemide 40 MG/4 ML VIAL IV ONE (11:49)
--- NOTE | 2020-10-28 11:49 | EDM.PDOC ---
ED HPI GENERAL MEDICAL PROBLEM - General Stated Complaint: NOT FEELING WELL AND HARD TO BREATH Time Seen by Provider: 10/28/20 11:40 Source of Information: Reports: Patient History Limitations: Reports: No Limitations - History of Present Illness INITIAL COMMENTS - FREE TEXT/NARRATIVE: Gwyn comes emergency department today from home with chest pain and primarily shortness of breath. Last week this patient was in the hospital overnight under observation for a lower gastrointestinal hemorrhage. His hemoglobins were rather stable after arrival and after his stay in the hospital. He did have some problems with atrial fibrillation and RVR during his hospitalization. He also received some IV hydration due to his volume loss. Last couple of days he has been extremely short of breath especially when he goes to do any physical exercise. He was discontinued on his Coumadin last week due to risk of bleeding. He is not on an aspirin. Today he has had some pressure on his chest primarily when he gets up to do something becomes extreme visibly short of breath and has some pressure tightness in his chest. This pain resolves on its own after he sits back down. He has no cough or congestion. No fever no chills. No nausea vomiting diaphoresis. No weakness dizziness lightheadedness. No paresthesias. Nominal pain nausea or vomiting. He has been urinating and voiding well. He does note that he has quite a bit of creased edema to his lower extremities. No Covid exposure no Covid symptoms. Mid-Sternal Chest Pain Score (Numeric/FACES): 4 Headache Pain Score (Numeric/FACES): 4 - Related Data Allergies Allergy/AdvReac Type Severity Reaction Status Date / Time aspirin AdvReac Bleeding Verified 10/28/20 18:21 benazepril HCl AdvReac Nausea and Verified 10/28/20 18:21 [From Lotensin] Vomiting celecoxib [From Celebrex] AdvReac Nausea and Verified 10/28/20 18:21 Vomiting cetirizine HCl AdvReac Drowsiness Verified 10/28/20 18:21 [From Zyrtec-D] pseudoephedrine HCl AdvReac Drowsiness Verified 10/28/20 18:21 [From Zyrtec-D] Home Meds: Home Meds Multivitamin with Minerals [Multivitamins with Minerals] 1 tab PO DAILY 05/23/15 [History] predniSONE [Prednisone] 5 mg PO ASDIRECTED 05/23/15 [History] Hydrocodone/Acetaminophen [Hydrocodone-Acetamin 10-325 mg] 1 - 2 tab PO Q3H PRN 10/13/17 [History] predniSONE [Prednisone] 3 mg PO ASDIRECTED 10/13/17 [History] Cholecalciferol (Vitamin D3) [Vitamin D3] 400 unit PO DAILY 01/31/20 [History] Ferrous Sulfate 325 mg PO DAILY 90 Days #30 tablet 02/03/20 [Rx] Citalopram [Citalopram HBr] 20 mg PO DAILY 03/18/20 [History] Melatonin 3 mg PO BEDTIME tablet 05/04/20 [Rx] Metoprolol Succinate [Toprol XL] 12.5 mg PO DAILY 05/29/20 [History] Calcium Carbonate/Vitamin D3 [Caltrate 600 Plus D3 Tablet] 1 tab PO BIDMEALS 10/02/20 [History] Denosumab [Prolia] 60 mg SUBCUT Q180D 10/02/20 [History] Fluticasone Propionate [Flonase] 50 mcg NASBOTH BID 10/02/20 [History] Isosorbide Mononitrate [Imdur] 30 mg PO QAM 10/02/20 [History] Magnesium Oxide 400 mg PO DAILY 10/02/20 [History] traZODone HCl [Trazodone HCl] 50 - 100 mg PO BEDTIME 10/02/20 [History] Furosemide 40 mg PO DAILY #0 10/03/20 [Rx] Potassium Chloride [Klor-Con 10] 10 meq PO DAILY #30 tab.er 10/03/20 [Rx] Magnesium Hydroxide [Milk of Magnesia] 30 ml PO DAILY PRN 10/28/20 [History] Nitroglycerin [Nitrostat] 0.4 mg SL ASDIRECTED PRN 10/28/20 [History] Omeprazole 20 mg PO QAM 10/28/20 [History] Past Medical History HEENT History: Reports: Allergic Rhinitis Cardiovascular History: Reports: CAD, Heart Murmur, High Cholesterol, Hypertension, VT, PVD, Other (See Below) Other Cardiovascular History: HOLOSYSTOLIC MURMUR, atherosclerosis Respiratory History: Reports: COPD, Sleep Apnea Gastrointestinal History: Reports: GERD, Other (See Below) Other Gastrointestinal History: HX OF SMALL BOWEL OBSTRUCTION, ulcers Other Genitourinary History: TESTOSTERONE DEF, Musculoskeletal History: Reports: Fracture, Osteoarthritis Other Musculoskeletal History: DJD, TROCHANTERIC BURSITIS Other Neuro History: HERPES SIMPLEX LABIALIS Psychiatric History: Reports: Depression Hematologic History: Reports: Anemia - Infectious Disease History Infectious Disease History: Reports: None - Past Surgical History HEENT Surgical History: Reports: Cataract Surgery Cardiovascular Surgical History: Reports: Coronary Artery Bypass Respiratory Surgical History: Reports: None GI Surgical History: Reports: Cholecystectomy, Colon, Colonoscopy Other GI Surgeries/Procedures: VENTRAL HERNIA Male Surgical History: Reports: None Musculoskeletal Surgical History: Reports: Joint Replacement, Other (See Below) Other Musculoskeletal Surgeries/Procedures:: POLYMYALGIA RHEUMATICA, shoulder injection, left hip nailing Social & Family History - Family History Family Medical History: No Pertinent Family History - Caffeine Use Caffeine Use: Reports: Coffee, Soda ED ROS GENERAL - Review of Systems Review Of Systems: Comprehensive ROS is negative, except as noted in HPI. ED EXAM, GENERAL - Physical Exam Exam: See Below Free Text/Narrative:: This is a very pleasant happy alert interactive patient who appears in no acute distress. He was able to speak in full sentences. Exam Limited By: No Limitations General Appearance: Alert, WD/WN, No Apparent Distress Eye Exam: Bilateral Eye: EOMI Ears: Normal External Exam Nose: Normal Inspection Throat/Mouth: Normal Inspection Head: Atraumatic, Normocephalic Neck: Normal Inspection, Supple, Non-Tender Respiratory/Chest: No Respiratory Distress, No Accessory Muscle Use, Chest Non- Tender, Crackles (Crackles bilaterally about 50% of the way up the lung mayer) Cardiovascular: Normal Peripheral Pulses, Tachycardia (HRt 100-130s), Irregularly Irregular Peripheral Pulses: 2+: Radial (L), Radial (R), Posterior Tibial (L), Posterior Tibial (R), Dorsalis Pedis (L), Dorsalis Pedis (R) GI/Abdominal: Normal Bowel Sounds, Soft, Non-Tender (Male) Exam: Deferred Rectal (Males) Exam: Deferred Back Exam: Normal Inspection, Full Range of Motion Extremities: Normal Inspection, Pedal Edema (2+ up to the knees) Neurological: Alert, Oriented, Normal Cognition, No Motor/Sensory Deficits Psychiatric: Normal Affect, Normal Mood Skin Exam: Warm, Dry, Intact, Normal Color Course - Vital Signs Last Recorded V/S: Last Vital Signs Temp 96.2 F L 10/28/20 18:00 Pulse 78 10/28/20 19:55 Resp 18 10/28/20 18:00 BP 116/72 10/28/20 19:55 Pulse Ox 95 10/28/20 18:00 - Orders/Labs/Meds Orders: Active Orders 24 hr Category Date Time Status Sodium Chloride 0.9% [Saline Flush] Med 10/28/20 11:46 Active 10 ml FLUSH ASDIRECTED PRN Peripheral IV Insertion Adult [OM.PC] Stat Oth 10/28/20 11:46 Ordered Medication Orders Hydrocodone Bitart/Acetaminophen (Acetaminophen/Hydrocodone 325-10 Mg Tab) 1 tab PO Q3H PRN PRN Reason: Pain (moderate 4-6) Last Admin: 10/28/20 19:57 Dose: 1 tab Documented by: SARANYA Aspirin (Aspirin 81 Mg Tab.Chew) 81 mg PO DAILY [facility] Calcium Carbonate (Calcium Carbonate/Vitamin D3 1250 Mg-200 Unit Tab) 1 tab PO BIDMEALS [facility] Last Admin: 10/28/20 17:15 Dose: 1 tab Documented by: CR Cholecalciferol (Cholecalciferol (Vitamin D3) 10 Mcg Tab) 400 mcg PO DAILY [facility] Citalopram Hydrobromide (Citalopram 20 Mg Tab) 20 mg PO DAILY [facility] Ferrous Sulfate (Ferrous Sulfate 325 Mg Tab) 325 mg PO DAILY [facility] Fluticasone Propionate (Fluticasone Propionate Nasal [place] 9.9 Ml Bottle) 0 ml NASBOTH BID [facility] Last Admin: 10/28/20 19:57 Dose: 2 spray Documented by: SARANYA Furosemide (Furosemide 40 Mg/4 Ml Vial) 40 mg IV BIDDIURETIC [facility] Isosorbide Mononitrate (Isosorbide Mononitrate 30 Mg Tab.Er) 30 mg PO QAM [facility] Magnesium Oxide (Magnesium Oxide 400 Mg Tab) 400 mg PO DAILY [facility] Melatonin (Melatonin 3 Mg Tab) 3 mg PO BEDTIME [facility] Last Admin: 10/28/20 19:54 Dose: 3 mg Documented by: SARANYA Metoprolol Succinate (Metoprolol Succinate 25 Mg Tab.Er) 25 mg PO DAILY [facility] Multivitamins/Minerals (Multivitamins With Iron/Calcium/Folic Acid/Minerals Tab) 1 tab PO DAILY [facility] Omeprazole (Omeprazole 20 Mg Cap.Cr) 20 mg PO DAILY [facility] Potassium Chloride (Potassium Chloride 10 Meq Tab.Er) 10 meq PO DAILY [facility] Prednisone (Prednisone 1 Mg Tab) 3 mg PO TuWeThFr@0800 [facility] Prednisone (Prednisone 5 Mg Tab) 5 mg PO SuMoSa@0800 [facility] Sodium Chloride (Sodium Chloride 0.9% 10 Ml Syringe) 10 ml FLUSH ASDIRECTED PRN PRN Reason: Keep Vein Open Trazodone HCl (Trazodone 50 Mg Tab) 50 - 100 mg PO BEDTIME [facility] Last Admin: 10/28/20 19:55 Dose: 100 mg Documented by: SARANYA Labs: Laboratory Tests 10/28/20 10/28/20 10/28/20 Range/Units 11:40 11:40 11:40 WBC 10.1 H (4.0-10.0) x10^3/uL RBC 2.91 L (4.5-6.0) x10^6/uL Hgb 8.3 L (14.0-18.0) g/dL Hct 27.5 L (40.0-52.0) % MCV 94.5 H (78.0-93.0) fL MCH 28.5 (26.0-32.0) pg MCHC 30.2 L (32.0-36.0) g/dL RDW Coeff of Reuben 14.4 (10.0-15.0) % Plt Count 221 (130-400) x10^3/uL Neut % (Auto) 82.2 H (50.0-80.0) % Lymph % (Auto) 9.8 L (25.0-50.0) % [place] % (Auto) 6.2 (2.0-11.0) % Eos % (Auto) 1.3 (0.0-4.0) % Baso % (Auto) 0.5 (0.2-1.2) % PT 11.2 (9.9-12.5) SEC INR 1.0 L (2.0-3.5) APTT 24.8 L (25.6-32.8) SEC Sodium 141 (136-145) mmol/L Potassium 4.0 (3.5-5.1) mmol/L Chloride 101 (98-107) mmol/L Carbon Dioxide 34 H (21-32) mmol/L Anion Gap 10.0 (5-15) mmol/L BUN 16 (7-18) mg/dL Creatinine 1.0 (0.70-1.30) mg/dL Est Cr Clr Drug Dosing TNP Estimated GFR (MDRD) > 60 Glucose 105 (74-106) mg/dL Calcium 8.6 (8.5-10.1) mg/dL Corrected Calcium 9.32 (8.5-10.1) mg/dL Total Bilirubin 0.3 (0.2-1.0) mg/dL AST 26 (15-37) U/L ALT 8 L (16-63) U/L Alkaline Phosphatase 112 (46-116) U/L POC Troponin I (0.00-0.08) ng/mL Troponin I High Sens 536 H* (<=76) ng/L NT-Pro-B Natriuret Pep 37801 H (<=450) pg/mL Total Protein 6.3 L (6.4-8.2) g/dL Albumin 3.1 L (3.4-5.0) g/dL Globulin 3.2 Albumin/Globulin Ratio 0.97 10/28/20 10/28/20 10/28/20 Range/Units 14:45 14:45 14:48 WBC (4.0-10.0) x10^3/uL RBC (4.5-6.0) x10^6/uL Hgb (14.0-18.0) g/dL Hct (40.0-52.0) % MCV (78.0-93.0) fL MCH (26.0-32.0) pg MCHC (32.0-36.0) g/dL RDW Coeff of Reuben (10.0-15.0) % Plt Count (130-400) x10^3/uL Neut % (Auto) (50.0-80.0) % Lymph % (Auto) (25.0-50.0) % [place] % (Auto) (2.0-11.0) % Eos % (Auto) (0.0-4.0) % Baso % (Auto) (0.2-1.2) % PT (9.9-12.5) SEC INR (2.0-3.5) APTT (25.6-32.8) SEC Sodium (136-145) mmol/L Potassium (3.5-5.1) mmol/L Chloride (98-107) mmol/L Carbon Dioxide (21-32) mmol/L Anion Gap (5-15) mmol/L BUN (7-18) mg/dL Creatinine (0.70-1.30) mg/dL Est Cr Clr Drug Dosing Estimated GFR (MDRD) Glucose (74-106) mg/dL Calcium (8.5-10.1) mg/dL Corrected Calcium (8.5-10.1) mg/dL Total Bilirubin (0.2-1.0) mg/dL AST (15-37) U/L ALT (16-63) U/L Alkaline Phosphatase (46-116) U/L POC Troponin I 0.41 H* Cancelled (0.00-0.08) ng/mL Troponin I High Sens 543 H* (<=76) ng/L NT-Pro-B Natriuret Pep (<=450) pg/mL Total Protein (6.4-8.2) g/dL Albumin (3.4-5.0) g/dL Globulin Albumin/Globulin Ratio Meds: Medications Generic Name Dose Route Start Last Admin Trade Name Freq PRN Reason Stop Dose Admin Hydrocodone Bitart/Acetaminophen 1 tab 10/28/20 16:27 10/28/20 19:57 Acetaminophen/Hydrocodone 325-10 Mg Tab PO 1 tab Q3H PRN Administration Pain (moderate 4-6) Aspirin 81 mg 10/29/20 08:00 Aspirin 81 Mg Tab.Chew PO DAILY [facility] Calcium Carbonate 1 tab 10/28/20 18:00 10/28/20 17:15 Calcium Carbonate/Vitamin D3 1250 Mg-200 Unit Tab PO 1 tab BIDMEALS [facility] Administration Cholecalciferol 400 mcg 10/29/20 08:00 Cholecalciferol (Vitamin D3) 10 Mcg Tab PO DAILY [facility] Citalopram Hydrobromide 20 mg 10/29/20 08:00 Citalopram 20 Mg Tab PO DAILY [facility] Ferrous Sulfate 325 mg 10/29/20 08:00 Ferrous Sulfate 325 Mg Tab PO DAILY [facility] Fluticasone Propionate 0 ml 10/28/20 20:00 10/28/20 19:57 Fluticasone Propionate Nasal [place] 9.9 Ml Bottle NASBOTH 2 spray BID [facility] Administration Furosemide 40 mg 10/29/20 08:00 Furosemide 40 Mg/4 Ml Vial IV BIDDIURETIC [facility] Isosorbide Mononitrate 30 mg 10/29/20 08:00 Isosorbide Mononitrate 30 Mg Tab.Er PO QAM [facility] Magnesium Oxide 400 mg 10/29/20 08:00 Magnesium Oxide 400 Mg Tab PO DAILY [facility] Melatonin 3 mg 10/28/20 20:00 10/28/20 19:54 Melatonin 3 Mg Tab PO 3 mg BEDTIME [facility] Administration Metoprolol Succinate 25 mg 10/29/20 08:00 Metoprolol Succinate 25 Mg Tab.Er PO DAILY [facility] Multivitamins/Minerals 1 tab 10/29/20 08:00 Multivitamins With Iron/Calcium/Folic Acid/Minerals Tab PO DAILY [facility] Omeprazole 20 mg 10/29/20 08:00 Omeprazole 20 Mg Cap.Cr PO DAILY [facility] Potassium Chloride 10 meq 10/29/20 08:00 Potassium Chloride 10 Meq Tab.Er PO DAILY [facility] Prednisone 3 mg 10/30/20 08:00 Prednisone 1 Mg Tab PO TuWeThFr@0800 [facility] Prednisone 5 mg 10/29/20 08:00 Prednisone 5 Mg Tab PO SuMoSa@0800 [facility] Sodium Chloride 10 ml 10/28/20 11:46 Sodium Chloride 0.9% 10 Ml Syringe FLUSH ASDIRECTED PRN Keep Vein Open Trazodone HCl 50 - 100 mg 10/28/20 20:00 10/28/20 19:55 Trazodone 50 Mg Tab PO 100 mg BEDTIME [facility] Administration Discontinued Medications Generic Name Dose Route Start Last Admin Trade Name Freq PRN Reason Stop Dose Admin Aspirin 81 mg 10/28/20 15:58 10/28/20 16:04 Aspirin 81 Mg Tab.Chew PO 10/28/20 15:59 81 mg ONETIME ONE Administration Furosemide 40 mg 10/28/20 11:49 10/28/20 12:06 Furosemide 40 Mg/4 Ml Vial IV 10/28/20 11:50 40 mg ONETIME ONE Administration Metoprolol Succinate 12.5 mg 10/28/20 15:55 10/28/20 16:04 Metoprolol Succinate 25 Mg Tab.Er PO 10/28/20 15:56 12.5 mg ONETIME ONE Administration Metoprolol Tartrate 2.5 mg 10/28/20 16:18 10/28/20 16:27 Metoprolol Tartrate 5 Mg/5 Ml Sdv IVPUSH 10/28/20 16:19 2.5 mg ONETIME ONE Administration Metoprolol Tartrate 2.5 mg 10/28/20 18:27 10/28/20 19:55 Metoprolol Tartrate 5 Mg/5 Ml Sdv IVPUSH 10/28/20 18:28 2.5 mg ONETIME ONE Administration - Radiology Interpretation Free Text/Narrative:: Chest x-ray per radiology shows stable cardiomegaly with mild central vascular congestion and small bilateral pleural effusions. Left greater than right. - Re-Assessments/Exams Free Text/Narrative Re-Assessment/Exam: IV established labs were drawn. 40mg IVP CXr with CHF EKg unchanged from previous other than watching the monitor his heart rate is really all over the place and gets really tachy whenever he starts to exert himself. Laboratory evaluation with a white blood cell count of 10.1, hemoglobin 8.3 which is stable from his discharge last week of 8.6, platelet 221. INR 1.0, PT 11.2. Comprehensive metabolic panel rather unremarkable other than a CO2 of 34. Creatinine normal at 1.0 and a BUN of 16. Liver enzymes are normal. proBNP 91171 which is actually above baseline for this patient. Covid screening negative. Troponin high-sensitivity 536. Patient had no pain in his chest while he was in the emergency department. He was given an 81 mg of aspirin as he is not on any antiplatelet. I did not give him a full aspirin due to his recent GI bleed. I really feel that this elevatio n in his troponin is most likely due to his atrial fibrillation with RVR as well as his presence of congestive heart failure. We will monitor him in the emergency department and repeat his troponin for trending and see how well he diuresis. He had a repeat troponin at 4 hours with the POC troponin is 0.4 with an upper limit is 0.08 and a rather unremarkable change in his troponin high-sensitivity of 543. He has diuresed very well about 2200 mils of urine in the emergency department. He does relate that he feels quite a bit better. Although he still has quite a bit of variability in his heart rate especially when he gets up to do any physical exertion. I think this is a multifactorial presentation of congestive heart failure in the presence of atrial fibrillation with RVR causing a mild elevation of his troponin and cardiac strain on his heart. He does not want any aggressive management and I really do not feel that there is any need to see cardiology at this time. I discussed with him at length the plan to admit him into the hospital under observation to get his atrial fibrillation under control trend his troponins and continue his diuresis. He is comfortable with this plan and his questions are answered. Departure - Departure Time of Disposition: 16:34 Disposition: Home, Self-Care 01 Clinical Impression: Elevated troponin Sepsis Event Note (ED) - Focused Exam Vital Signs: Vital Signs Temp Pulse Resp BP Pulse Ox 10/28/20 15:00 131 H 16 132/81 97 10/28/20 14:30 126 H 16 124/82 99 10/28/20 13:45 128 H 20 132/79 97 10/28/20 12:50 110 H 20 122/78 96 10/28/20 12:00 117 H 20 138/80 96 10/28/20 11:30 98.7 F 102 H 20 148/83 H 96 - Problem List & Annotations (1) Atrial fibrillation with RVR SNOMED Code(s): 431859294342158 Code(s): I48.91 - UNSPECIFIED ATRIAL FIBRILLATION Status: Chronic Prio rity: High Current Visit: No (2) HFrEF (heart failure with reduced ejection fraction) SNOMED Code(s): 056700303 Code(s): I50.20 - UNSPECIFIED SYSTOLIC (CONGESTIVE) HEART FAILURE Status: Acute Current Visit: No (3) CHF exacerbation SNOMED Code(s): 865352197, 67658353397230 Code(s): I50.9 - HEART FAILURE, UNSPECIFIED Status: Acute Current Visit: No Qualifiers: Heart failure type: unspecified Qualified Code(s): I50.9 - Heart failure, unspecified - My Orders Last 24 Hours: My Active Orders 10/28/20 11:46 Sodium Chloride 0.9% [Saline Flush] 10 ml FLUSH ASDIRECTED PRN Peripheral IV Insertion Adult [OM.PC] Stat - Assessment/Plan Admission H&P: Please use this note as an admission H&P Last 24 Hours: My Active Orders 10/28/20 11:46 Sodium Chloride 0.9% [Saline Flush] 10 ml FLUSH ASDIRECTED PRN Peripheral IV Insertion Adult [OM.PC] Stat Assessment:: A/P #1: Acute on chronic congestive heart failure with reduced ejection fraction. This is most likely due to the recent GI bleed and change in vascular volume could also be related to uncontrolled A. fib with RVR. He diuresed well in the emergency department a little over 2 L. With 40 mg of Lasix. We will increase his Lasix from 40 mg every day to 40 mg twice daily. Watch for this labs closely. See #3 for increasing his Toprol-XL for rate control but I would also consider may be switching to Coreg with a noted heart failure with reduced ejection fraction. I will leave this to his primary care provider. Recent echocardiogram on 10/16/2020 shows an ejection fraction of 30%. No significant pulmonary artery hypertension #2 Elevated troponin. Most likely due to cardiac strain with recent acute on chronic congestive heart failure as well as uncontrolled atrial fibrillation with RVR. We will trend his troponins. He is a DNR/DNI does not want any intervention and he has no chest pain in the emergency department after diuresis. We will start him on 81 mg of aspirin daily. He is not actively having any signs of a GI bleed and his hemoglobin is stable. He was discontinued on his Coumadin and his last hospitalization for risk of bleeding. #3 Atrial fibrillation with RVR. He is not anticoagulated he was discontinued on his Coumadin previously due to risk of bleeding. We will increase his metoprolol XL to 25 mg p.o. daily. Monitor him closely. ALthough consider switching to Coreg by PCP with the with HfRef VTE: Short stay on aspiring TEDs risk of bleeding no other anti-coag Sepsis: No signs of sepsis at this time. Continue to monitor. Code Status: 2. We will admit this patient into the hospital under observation for diuretics and heart rate control. We will monitor his blood pressure closely as he is somew hat labile with that as well. I anticipate no more than 48 hours stay in the hospital and most likely just overnight. Plan will be to discharge this patient home in the morning. Will be admitted under observation under my service for tonight and I will discuss this with his primary care provider in the morning as he was to see her in the clinic tomorrow anyways. Patient and his are comfortable with this plan and their questions are answered. I did discuss this case with Dr. Indy Alfonso over the phone after admission and she was in agreement with this plan and assume his care in the morning.
[2020-10-28 12:17] LABS: PTT,PARTIAL THROMBOPLSTIN TIME 24.8 SEC (25.6-32.8)
[2020-10-28 12:29] LABS: CHLORIDE,CL 101 mmol/L (98-107); SODIUM,NA 141 mmol/L (136-145)
--- NOTE | 2020-10-28 12:52 | CR ---
[id number] RAD/RAD Chest PA or AP 1V EXAM: FRONTAL CHEST INDICATION: SHORTNESS OF BREATH. COMPARISON: October 02, 2020. DISCUSSION: Stable cardiomegaly with mild central vascular congestion and small bilateral pleural effusions, left greater than right, compatible with congestive heart failure. Prior sternotomy. IMPRESSION: 1. Evidence of congestive heart failure including mild interstitial edema and small bilateral pleural effusions. Edgar Nichols MD 10/28/20 [id number] Thank you for allowing us to participate in the care of your patient.
[2020-10-28] MEDS ORDERED: Metoprolol Succinate 25 MG Tab.ER PO ONE (15:55)
[2020-10-28] MEDS ORDERED: Aspirin 81 MG Tab.Chew PO ONE (15:58)
[2020-10-28] MEDS ORDERED: Metoprolol Tartrate 5 MG/5 ML SDV IVPUSH ONE ×2 (16:18→18:27)
[2020-10-28] MEDS: Calcium Carbonate/Vitamin D3 1250 MG-200 Unit Tab PO SCH (17:15)
[2020-10-28] MEDS: Acetaminophen/HYDROcodone 325-10 MG Tab PO PRN (19:57)
[2020-10-28] MEDS: Fluticasone Propionate Nasal Spray 9.9 ML BOTTLE NASBOTH SCH (19:57)
[2020-10-28] MEDS ORDERED: traZODone 50 MG Tab PO SCH (20:00)
[2020-10-28] MEDS ORDERED: Melatonin 3 MG Tab PO SCH (20:00)
--- NOTE | 2020-10-28 20:49 | PCM.EKG ---
#1 Interpretation EKG Date: 10/28/20 Time: 11:36 Rhythm: A-Fib Rate (Beats/Min): 128 [place]: Normal P-Wave: Present QRS: Normal ST-T: Normal QT: Normal Comparison: No Change
[2020-10-29] MEDS: Acetaminophen/HYDROcodone 325-10 MG Tab PO PRN ×2 (05:40→09:21)
[2020-10-29 07:21] LABS: CHLORIDE,CL 101 mmol/L (98-107); SODIUM,NA 141 mmol/L (136-145)
[2020-10-29 07:23] LABS: ANION GAP 6.2 mmol/L (5-15)
[2020-10-29] MEDS ORDERED: Multivitamins with Iron/Calcium/Folic Acid/Minerals Tab PO SCH (08:00)
[2020-10-29] MEDS ORDERED: Cholecalciferol (Vitamin D3) 10 MCG Tab PO SCH (08:00)
[2020-10-29] MEDS ORDERED: Potassium Chloride 10 MEQ Tab.ER PO SCH (08:00)
[2020-10-29] MEDS ORDERED: Isosorbide Mononitrate 30 MG Tab.ER PO SCH (08:00)
[2020-10-29] MEDS ORDERED: Furosemide 40 MG/4 ML VIAL IV SCH (08:00)
[2020-10-29] MEDS ORDERED: predniSONE 5 MG Tab PO SCH (08:00)
[2020-10-29] MEDS ORDERED: Omeprazole 20 MG Cap.CR PO SCH (08:00)
[2020-10-29] MEDS ORDERED: Metoprolol Succinate 25 MG Tab.ER PO SCH (08:00)
[2020-10-29] MEDS ORDERED: Magnesium Oxide 400 MG Tab PO SCH (08:00)
[2020-10-29] MEDS ORDERED: Ferrous Sulfate 325 MG Tab PO SCH (08:00)
[2020-10-29] MEDS ORDERED: Citalopram 20 MG Tab PO SCH (08:00)
[2020-10-29] MEDS ORDERED: Aspirin 81 MG Tab.Chew PO SCH (08:00)
[2020-10-29] MEDS: Calcium Carbonate/Vitamin D3 1250 MG-200 Unit Tab PO SCH (08:57)
[2020-10-29] MEDS: Fluticasone Propionate Nasal Spray 9.9 ML BOTTLE NASBOTH SCH (08:57)
[2020-10-29] MEDS ORDERED: Furosemide 40 MG Tab PO ONE (08:59)
[2020-10-29 11:08] VITALS: BP 108/60; PULSE 76
--- NOTE | 2020-10-29 14:09 | DISCH ---
PRIMARY DISCHARGE DIAGNOSES: 1. 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 This is likely due to recent gastrointestinal bleed with intravenous fluids given. 2. Lower gastrointestinal bleed, resolved after stopping anticoagulation. This is probably diverticular, but with previous weight loss and coronary disease and plan for starting aspirin, we will schedule outpatient esophagogastroduodenoscopy and colonoscopy. 3. Moderate mitral regurgitation. 4. Pulmonary hypertension increased to 34. 5. Coronary artery disease. 6. Atrial fibrillation with rapid ventricular response at times, probably also contributed to this admission. 7. Chronic left hip pain, on narcotics. 8. Polymyalgia rheumatica, on chronic prednisone. 9. Chronic bronchitis and chronic hypoxic respiratory failure, on oxygen. 10.Chronic anemia. REASON FOR ADMISSION: On the date of admission, this 80-year-old male who had recently been discharged on the , presented back to the ER on the , just not feeling well. He was short of breath. His troponin was up to 536, it has trended down to 509 today. He has not had any chest pain, but his proBNP was 12,000. He received some IV Lasix in the ER and diuresed there 2 L. Decision was made to admit him for observation which in fact he was. He had no significant tachycardia while he was here. He received the IV Lasix. He is feeling much better and hopeful to return home. He did have a documented heart rate up to 120 to 130, but that was brief. He is back down to 76 this morning. He has a history of bradycardia. Therefore, did leave his metoprolol doses the same on discharge, but he did get an additional 12.5 mg dose while he was here. He had his at the bedside. He has had no further bleeding at home. It was recommended that he restart aspirin and he would like to do that. He does not want to resume Coumadin or other anticoagulation. He otherwise will follow up with Dr. Alfonso in 1 weeks' time with a BMP, outpatient colonoscopy and EGD are already being arranged from his previous admission. PHYSICAL EXAMINATION: Vital Signs: Discharging vitals included temperature 97.5, pulse 76, blood pressure 108/60, respiratory rate 18, O2 of 96% on 2 L. General: He is in no acute distress. Heart: Irregularly irregular with murmur. Lungs: Lung sounds are clear to auscultation bilaterally without crackles or wheezes. Extremities: Warm and dry. He still has 1+ edema to his ankles. Mental Status: Alert and orientated x3. Abdomen: Nontender. DISCHARGE PLANS AND INSTRUCTIONS: Again, follow up in the clinic with Dr. Alfonso with lab. He may resume aspirin 81 mg daily. Increase Lasix to 40 in the morning and 20 in the afternoon, but leave Toprol the same at 12.5 mg daily for now. Greater than 30 minutes spent on this discharge process. MKA: 10/29/2020 11:52:37 MODL: 10/29/2020 14:05:51 /[id number]
[2020-10-30] MEDS ORDERED: predniSONE 1 MG Tab PO SCH (08:00)
== END 2020-10-29 11:10 | disposition home or self-care (01) ==
LOC: VM.ED 11:21 → VM.MS 15:57
PROVIDERS: ADMIT Nurse Practitioner Family; ATTEND Internal Medicine
DX: I50.43 Acute on chronic combined systolic (congestive) and diastolic (congestive) heart failure (principal); I48.91 Unspecified atrial fibrillation; K92.2 Gastrointestinal hemorrhage, unspecified; R77.8 Other specified abnormalities of plasma proteins; I34.0 Nonrheumatic mitral (valve) insufficiency; I27.20 Pulmonary hypertension, unspecified; I25.10 Atherosclerotic heart disease of native coronary artery without angina pectoris; I11.0 Hypertensive heart disease with heart failure; M25.552 Pain in left hip; G89.29 Other chronic pain; M35.3 Polymyalgia rheumatica; J42 Unspecified chronic bronchitis; J96.11 Chronic respiratory failure with hypoxia; D64.89 Other specified anemias; I25.2 Old myocardial infarction; J90 Pleural effusion, not elsewhere classified; J44.9 Chronic obstructive pulmonary disease, unspecified; E78.00 Pure hypercholesterolemia, unspecified; G47.30 Sleep apnea, unspecified; Z20.822 Contact with and (suspected) exposure to COVID-19; Z88.8 Allergy status to other drugs, medicaments and biological substances; Z79.899 Other long term (current) drug therapy; Z95.1 Presence of aortocoronary bypass graft; Z99.81 Dependence on supplemental oxygen; Z98.890 Other specified postprocedural states
CPT/HCPCS: 36415; 71045; 80048; 80053; 83880; 84484; 85025; 85610; 85730; 93005; 93010; 96374; 99220; 99285-25; A9270-GY; J1940; J3490; J7512; U0002

== ENCOUNTER 2020-12-06 10:58 | Day surgery (SDC) | payer MEDICARE, OTHER ==
[~2020-12-06 10:58] MED LIST: Lactated Ringers 1,000 ML IV SCH
[2020-12-06] MEDS ORDERED: Propofol 200 MG/20 ML SDV ONE ×2 (12:29→13:35)
[2020-12-06 14:12] VITALS: PULSE 73
[2020-12-06 14:48] VITALS: BP 158/88
--- NOTE | 2020-12-07 10:44 | OR ---
SURGERY DATE: 12/06/2020. REFERRING PROVIDER: Patricia Alfonso DO PRE-OPERATIVE DIAGNOSES: 1. History of gastrointestinal bleed back in October, where he was hospitalized in [place]. The patient has been off his warfarin since that time. 2. Iron-deficiency anemia. 3. Voice hoarseness for the past 2+ months. The patient states he does see an ENT for this. Of note, the patient is also on omeprazole 20 mg daily and iron supplement daily. He is on prednisone long-term for PMR. POST-OPERATIVE DIAGNOSES: 1. Mild antritis. Cold biopsy x2 bites taken. 2. Otherwise normal esophagogastroduodenoscopy. PROCEDURE: Esophagogastroduodenoscopy with cold biopsies x1 site (antrum). SURGEON: Dylon Fowler M.D. ANESTHESIA: Monitored anesthesia care. Daniel is an 80-year-old male who was brought to the endoscope suite after discussion of risks and benefits (including but not limited to reaction to medication, bleeding, infection, aspiration, perforation). Informed consent was obtained for monitored anesthesia care and esophagogastroduodenoscopy along with possible biopsy and/or dilatation. Pre-procedure exam including oral cavity was remarkable for dentures which were removed for the procedure. IV, oxygen, and monitors were placed. Patient was placed in the left lateral position and sedation was administered. A bite block was placed gently and scope lightly lubricated and passed through the bite block and over the tongue. Hypopharynx and vocal cords were visualized and unremarkable. Scope was passed through the cricopharynx and into the esophagus. The scope was then passed through the distal esophagus and the GE junction was visualized and photographed. The GE junction was unremarkable. Vocal cords were visualized and unremarkable. The scope was advanced into the stomach and gastric armando was suctioned. Pylorus was identified and intubated and then the scope was advanced to the third portion of the duodenum. The second and third portions of the duodenum were unremarkable. The duodenal bulb was visualized and unremarkable. The scope was brought back into the stomach. The pylorus and the antrum revealed some mild antritis. Cold biopsies for H pylori and path were obtained from the antrum. Cold biopsy x2 bites was taken from this area to check for H pylori and sent for path. The scope was retroflexed to visualize the angularis, fundus, body, and cardia. These were unremarkable. The stomach was desufflated of air and then the scope was slowly withdrawn, and the esophagus was closely visualized during withdrawal all the way into the posterior pharynx, and this was unremarkable. The patient tolerated the procedure well and went to recovery in stable condition. The patient was monitored until at baseline status. Findings and discharge instructions were reviewed and the patient was discharged in good condition. COMPLICATIONS: None TOTAL TIME: 8 minutes. ESTIMATED BLOOD LOSS: Less than 1 mL. RECOMMENDATIONS/FOLLOW-UP: The patient can continue on his omeprazole 20 mg daily. We will send letter with path results from the antral biopsies. There was no obvious source of previous GI bleed. No worrisome masses seen. I would like to kindly thank Patricia Alfonso DO for this referral. DMB: 12/06/2020 14:31:56 MODL: 12/06/2020 20:27:29 /[id number]
--- NOTE | 2020-12-07 10:44 | OR ---
DATE OF SURGERY: 12/06/2020. REFERRING PROVIDER: Patricia Alfonso DO PRE-OPERATIVE DIAGNOSES: 1. History of gastrointestinal bleed back in October. 2. Iron deficiency anemia. The patient has now been off warfarin since that time. POST-OPERATIVE DIAGNOSES: 1. Significant diffuse diverticulosis. 2. Tortuous redundant colon, otherwise normal. No evidence for any colitis nor any polyps seen. PROCEDURE: Colonoscopy. SURGEON: Dylon Fowler M.D. ANESTHESIA: Monitored anesthesia care. BOWEL PREP: Fair and did require moderate irrigation and suctioning. Visualization for tiny or small polyps would be affected in various locations. Daniel is an 80-year-old male who was brought to the endoscopy suite after discussing risks and benefits of the procedure. Informed consent was obtained for conscious sedation and colonoscopy with or without biopsy and/or polypectomy. We also discussed possibility of missed lesions. Pre-procedure exam was unremarkable. IV, oxygen, and monitors were placed. The patient was left on his back for the procedure given the fact that he has a protruding left hip screw that is tenting the skin. Sedation was administered and a digital rectal exam was performed and unremarkable. Colonoscope was passed into the rectum and slowly advanced all the way to the cecum. The patient did have tortuous redundant floppy colon. Cecum was viewed and photographed. The colonoscope was slowly withdrawn and the mucosa was closed observed in a direct circumferential manner. Each segment of the colon had diverticulosis noted. Overall, I would call the amount of diverticulosis significant, mostly to the left greater than the right, but again affecting each segment of the colon. Otherwise, the ascending colon unremarkable. The transverse colon was unremarkable. The descending colon was unremarkable. The sigmoid colon was unremarkable. Retroflexion was performed and rectal mucosa was unremarkable. Scope was removed. The patient tolerated the procedure well. The patient was monitored until that baseline status. Discharge instructions were reviewed and the patient was discharged in good condition. COMPLICATIONS: None. TOTAL TIME: 31 minutes. ESTIMATED BLOOD LOSS: None. RECOMMENDATIONS/FOLLOW-UP: Given the patient's age, he can be done with colonoscopies barring any change in symptoms. I would like to kindly thank Patricia Alfonso for this referral. DMB: 12/06/2020 14:36:05 MODL: 12/06/2020 20:02:01 /[id number]
== END 2020-12-06 15:20 | disposition home or self-care (01) ==
LOC: VM.SDS 10:58
PROVIDERS: ATTEND Family Medicine
DX: K29.60 Other gastritis without bleeding (principal); K57.30 Diverticulosis of large intestine without perforation or abscess without bleeding; K31.89 Other diseases of stomach and duodenum; K63.89 Other specified diseases of intestine; I25.10 Atherosclerotic heart disease of native coronary artery without angina pectoris; R49.0 Dysphonia; D50.9 Iron deficiency anemia, unspecified; I48.0 Paroxysmal atrial fibrillation; J44.9 Chronic obstructive pulmonary disease, unspecified; M81.0 Age-related osteoporosis without current pathological fracture; M25.552 Pain in left hip; I11.0 Hypertensive heart disease with heart failure; I50.43 Acute on chronic combined systolic (congestive) and diastolic (congestive) heart failure; G47.33 Obstructive sleep apnea (adult) (pediatric); E78.5 Hyperlipidemia, unspecified; I25.2 Old myocardial infarction; Z01.812 Encounter for preprocedural laboratory examination; Z20.822 Contact with and (suspected) exposure to COVID-19; Z88.8 Allergy status to other drugs, medicaments and biological substances; Z79.899 Other long term (current) drug therapy; Z95.1 Presence of aortocoronary bypass graft
CPT/HCPCS: 00813; 88305; J2704; J7120; U0002

== ENCOUNTER 2021-11-10 02:21 | Emergency (ER) | payer MEDICARE, OTHER ==
[2021-11-10] MEDS ORDERED: Acetaminophen/HYDROcodone 325-10 MG Tab PO ONE (02:47)
[2021-11-10 03:05] LABS: PTT,PARTIAL THROMBOPLSTIN TIME 27.5 SEC (20.5-30.9)
[2021-11-10 03:16] LABS: ANION GAP 8.9 mmol/L (5-15); CHLORIDE,CL 103 mmol/L (98-107); SODIUM,NA 140 mmol/L (136-145)
[2021-11-10] MEDS ORDERED: Ketorolac 15 MG/ML SDV IVPUSH ONE (03:21)
[2021-11-10] MEDS ORDERED: methylPREDNISolone Sodium Succinate 125 MG/2 ML SDV IVPUSH ONE (03:22)
[2021-11-10 03:25] LABS: CORONAVIRUS COVID-19 NAA NEGATIVE (NEGATIVE)
[2021-11-10 03:26] LABS: RESPIRATORY SYNCYTIAL VIR NAA NEGATIVE (NEGATIVE)
[2021-11-10] MEDS ORDERED: Take Home: predniSONE 20 MG, 2 Tab Pack PO ONE (04:08)
[2021-11-10 04:58] VITALS: BP 140/80; PULSE 71
== END 2021-11-10 04:20 | disposition home or self-care (01) ==
LOC: VM.ED 02:21
DX: M35.3 Polymyalgia rheumatica (principal); I48.91 Unspecified atrial fibrillation; I25.10 Atherosclerotic heart disease of native coronary artery without angina pectoris; I11.0 Hypertensive heart disease with heart failure; I50.9 Heart failure, unspecified; E78.00 Pure hypercholesterolemia, unspecified; J44.9 Chronic obstructive pulmonary disease, unspecified; Z88.8 Allergy status to other drugs, medicaments and biological substances; Z79.899 Other long term (current) drug therapy; Z79.82 Long term (current) use of aspirin; Z20.822 Contact with and (suspected) exposure to COVID-19
CPT/HCPCS: 0241U; 36415; 70450; 71045; 80053; 82550; 83605; 83735; 84100; 84443; 84484; 85025; 85610; 85652; 85730; 93005; 93010; 96374; 96375; 99284; 99285-25; A9270-GY; J1885; J2930; J7512

== ENCOUNTER 2021-11-10 10:24 | Inpatient (IN) | payer MEDICARE, OTHER ==
[2021-11-10] MEDS ORDERED: Sodium Chloride 0.9% 10 ML Syringe FLUSH PRN (11:45)
[2021-11-10 12:34] LABS: CHLORIDE,CL 102 mmol/L (98-107); SODIUM,NA 138 mmol/L (136-145)
[2021-11-10 12:39] LABS: ANION GAP 10.9 mmol/L (5-15)
[2021-11-10] MEDS ORDERED: Sodium Polystyrene Sulfonate 15 GM/60 ML Susp 60 ML Bot PO ONE (12:44)
[2021-11-10] MEDS ORDERED: Diclofenac Sodium 1% Gel 100 GM Tube TOP PRN (13:04)
[2021-11-10] MEDS ORDERED: Magnesium Hydroxide 400 MG/5 ML Susp 30 ML Cup PO PRN (13:04)
[2021-11-10] MEDS ORDERED: Nitroglycerin 0.4 MG Tab.SL SL PRN (13:04)
[2021-11-10] MEDS ORDERED: tiZANidine 4 MG Tab PO PRN (13:09)
[2021-11-10] MEDS: Acetaminophen/HYDROcodone 325-10 MG Tab PO PRN ×2 (13:26→16:46)
[2021-11-10] MEDS ORDERED: Sodium Chloride 0.9% 1,000 ML IV SCH (13:45)
[2021-11-10] MEDS ORDERED: Ondansetron 4 MG Tab.DIS PO PRN (13:46)
[2021-11-10] MEDS: cefTRIAXone 1 GM Vial IVPUSH SCH (14:04)
[2021-11-10] MEDS: Azithromycin 500 MG in Sodium Chloride 0.9% 250 ML IV SCH (14:05)
[2021-11-10 17:01] LABS: BARBITURATE SCREEN,URINE NEGATIVE (NEGATIVE); BENZODIAZEPINES SCREEN,URINE NEGATIVE (NEGATIVE); METHAMPHETAMINE SCREEN, URINE NEGATIVE (NEGATIVE); THC SCREEN,URINE 50 NG/ML NEGATIVE (NEGATIVE)
[2021-11-10 17:02] LABS: BUPRENORPHINE SCREEN,URINE NEGATIVE (NEGATIVE)
[2021-11-10] MEDS: Calcium Carbonate/Vitamin D3 1250 MG-5 MCG Tab PO SCH (17:23)
[2021-11-10] MEDS: Acetaminophen 325 MG Tab PO PRN (17:23)
[2021-11-10] MEDS ORDERED: traZODone 50 MG Tab PO SCH (20:00)
[2021-11-10] MEDS ORDERED: Melatonin 3 MG Tab PO SCH (20:00)
[2021-11-10] MEDS: Fluticasone Propionate Nasal Spray 9.9 ML BOTTLE NASBOTH SCH (20:05)
[2021-11-11] MEDS: Acetaminophen/HYDROcodone 325-10 MG Tab PO PRN (02:45)
[2021-11-11] MEDS: Acetaminophen 325 MG Tab PO PRN (06:04)
[2021-11-11 07:48] LABS: CHLORIDE,CL 103 mmol/L (98-107); SODIUM,NA 142 mmol/L (136-145)
[2021-11-11 07:49] LABS: ANION GAP 10.9 mmol/L (5-15)
[2021-11-11] MEDS ORDERED: Magnesium Oxide 400 MG Tab PO SCH (08:00)
[2021-11-11] MEDS ORDERED: predniSONE 1 MG Tab PO SCH (08:00)
[2021-11-11] MEDS ORDERED: Potassium Chloride 10 MEQ Tab.ER PO SCH (08:00)
[2021-11-11] MEDS ORDERED: Lisinopril 2.5 MG Tab PO SCH (08:00)
[2021-11-11] MEDS ORDERED: Omeprazole 20 MG Cap.CR PO SCH (08:00)
[2021-11-11] MEDS ORDERED: Cholecalciferol (Vitamin D3) 10 MCG Tab PO SCH (08:00)
[2021-11-11] MEDS ORDERED: Multivitamins with Iron/Calcium/Folic Acid/Minerals Tab PO SCH (08:00)
[2021-11-11] MEDS ORDERED: Ferrous Sulfate 325 MG Tab PO SCH (08:00)
[2021-11-11] MEDS ORDERED: Citalopram 20 MG Tab PO SCH (08:00)
[2021-11-11] MEDS ORDERED: Metoprolol Succinate 25 MG Tab.ER PO SCH (08:00)
[2021-11-11] MEDS ORDERED: Furosemide 40 MG Tab PO SCH (08:00)
[2021-11-11] MEDS: Azithromycin 500 MG in Sodium Chloride 0.9% 250 ML IV SCH (09:42)
[2021-11-11] MEDS: cefTRIAXone 1 GM Vial IVPUSH SCH (09:44)
[2021-11-11] MEDS: Fluticasone Propionate Nasal Spray 9.9 ML BOTTLE NASBOTH SCH (09:58)
[2021-11-11] MEDS: Calcium Carbonate/Vitamin D3 1250 MG-5 MCG Tab PO SCH (10:04)
[2021-11-11 12:54] VITALS: BP 172/79; PULSE 89
[2021-11-12] MEDS ORDERED: predniSONE 1 MG Tab PO SCH (08:00)
[2021-11-12] MEDS ORDERED: Acetaminophen/HYDROcodone 325-5 MG Tab PO ONE (12:10)
== END 2021-11-11 13:45 | disposition home health service (06) | DRG 871 ==
LOC: VM.MS 10:24
PROVIDERS: ADMIT Nurse Practitioner Family; ATTEND Internal Medicine
DX: A41.89 Other specified sepsis (principal); J18.9 Pneumonia, unspecified organism; F11.20 Opioid dependence, uncomplicated; I50.22 Chronic systolic (congestive) heart failure; J44.0 Chronic obstructive pulmonary disease with (acute) lower respiratory infection; J96.11 Chronic respiratory failure with hypoxia; E87.2 Acidosis; M35.3 Polymyalgia rheumatica; I25.10 Atherosclerotic heart disease of native coronary artery without angina pectoris; I34.0 Nonrheumatic mitral (valve) insufficiency; E86.0 Dehydration; E87.5 Hyperkalemia; I11.0 Hypertensive heart disease with heart failure; D50.9 Iron deficiency anemia, unspecified; G62.9 Polyneuropathy, unspecified; I73.9 Peripheral vascular disease, unspecified; G47.33 Obstructive sleep apnea (adult) (pediatric); I48.0 Paroxysmal atrial fibrillation; E78.5 Hyperlipidemia, unspecified; Z90.49 Acquired absence of other specified parts of digestive tract; Z99.81 Dependence on supplemental oxygen; Z87.891 Personal history of nicotine dependence; Z98.49 Cataract extraction status, unspecified eye; Z79.899 Other long term (current) drug therapy
CPT/HCPCS: 36415; 71046; 80053; 80305-QW; 81001; 82140; 82550; 83605; 83735; 84145; 84484; 85025; 85652; 87040; 93005; 97162-GP; 97165-GO; A9270-GY; J0456; J0696; J3490; J7030; J7050; J7512

== ENCOUNTER 2021-11-12 05:45 | Emergency (ER) | payer MEDICARE, OTHER ==
[2021-11-12 06:42] VITALS: BP 150/95; PULSE 89
== END 2021-11-12 06:25 | disposition home or self-care (01) ==
LOC: VM.ED 05:45
DX: R51.9 Headache, unspecified (principal); M79.10 Myalgia, unspecified site; R53.81 Other malaise; I11.0 Hypertensive heart disease with heart failure; I50.9 Heart failure, unspecified; I48.91 Unspecified atrial fibrillation; I25.10 Atherosclerotic heart disease of native coronary artery without angina pectoris; I25.2 Old myocardial infarction; F32.A Depression, unspecified; D64.9 Anemia, unspecified; Z88.8 Allergy status to other drugs, medicaments and biological substances; Z88.1 Allergy status to other antibiotic agents; Z88.6 Allergy status to analgesic agent
CPT/HCPCS: 99283; 99284

== ENCOUNTER 2021-11-12 11:38 | Inpatient (IN) | payer MEDICARE, OTHER ==
[2021-11-12] MEDS ORDERED: Ondansetron 4 MG/2 ML SDV IVPUSH PRN (12:15)
[2021-11-12] MEDS ORDERED: Nitroglycerin 0.4 MG Tab.SL SL PRN (12:27)
[2021-11-12] MEDS ORDERED: Magnesium Hydroxide 400 MG/5 ML Susp 30 ML Cup PO PRN (12:27)
[2021-11-12] MEDS ORDERED: Diclofenac Sodium 1% Gel 100 GM Tube TOP PRN (12:27)
[2021-11-12] MEDS ORDERED: Acetaminophen/HYDROcodone 325-5 MG Tab PO ONE (12:30)
[2021-11-12] MEDS: ALPRAZolam 0.25 MG Tab PO PRN (13:00)
[2021-11-12] MEDS: Furosemide 40 MG Tab PO SCH (13:01)
[2021-11-12 13:28] LABS: ANION GAP 13.2 mmol/L (5-15); CHLORIDE,CL 99 mmol/L (98-107); SODIUM,NA 139 mmol/L (136-145)
[2021-11-12] MEDS: Acetaminophen/HYDROcodone 325-5 MG Tab PO PRN (17:28)
[2021-11-12] MEDS: Calcium Carbonate/Vitamin D3 1250 MG-5 MCG Tab PO SCH (17:29)
[2021-11-12] MEDS: Fluticasone Propionate Nasal Spray 9.9 ML BOTTLE NASBOTH SCH (20:09)
[2021-11-12] MEDS: Mirtazapine 15 MG Tab PO SCH (20:10)
[2021-11-12] MEDS: Cefuroxime 250 MG Tab PO SCH (20:11)
[2021-11-12] MEDS: Melatonin 3 MG Tab PO SCH (20:11)
[2021-11-12] MEDS: traZODone 50 MG Tab PO SCH (20:11)
[2021-11-12] MEDS: Acetaminophen 325 MG Tab PO PRN (20:13)
[2021-11-13] MEDS: Omeprazole 20 MG Cap.CR PO SCH (06:24)
[2021-11-13 06:57] LABS: CHLORIDE,CL 100 mmol/L (98-107); SODIUM,NA 141 mmol/L (136-145)
[2021-11-13 06:58] LABS: ANION GAP 12.4 mmol/L (5-15)
[2021-11-13] MEDS ORDERED: Metoprolol Succinate 25 MG Tab.ER PO SCH (08:00)
[2021-11-13] MEDS: Calcium Carbonate/Vitamin D3 1250 MG-5 MCG Tab PO SCH ×2 (08:18→17:31)
[2021-11-13] MEDS: Citalopram 20 MG Tab PO SCH (08:18)
[2021-11-13] MEDS: Multivitamins with Iron/Calcium/Folic Acid/Minerals Tab PO SCH (08:18)
[2021-11-13] MEDS: Aspirin 81 MG Tab.EC PO SCH (08:18)
[2021-11-13] MEDS: Magnesium Oxide 400 MG Tab PO SCH (08:18)
[2021-11-13] MEDS: Cefuroxime 250 MG Tab PO SCH ×2 (08:18→19:47)
[2021-11-13] MEDS: Lisinopril 2.5 MG Tab PO SCH (08:19)
[2021-11-13] MEDS: Furosemide 40 MG Tab PO SCH (08:19)
[2021-11-13] MEDS: Acetaminophen/HYDROcodone 325-5 MG Tab PO PRN (08:20)
[2021-11-13] MEDS: Azithromycin 250 MG Tab PO SCH (08:20)
[2021-11-13] MEDS: Cholecalciferol (Vitamin D3) 10 MCG Tab PO SCH (08:20)
[2021-11-13] MEDS: Fluticasone Propionate Nasal Spray 9.9 ML BOTTLE NASBOTH SCH ×2 (08:23→19:49)
[2021-11-13] MEDS: Potassium Chloride 10 MEQ Tab.ER PO SCH ×2 (08:23→17:31)
[2021-11-13] MEDS: ALPRAZolam 0.25 MG Tab PO PRN (09:41)
[2021-11-13] MEDS: Metoprolol Succinate 25 MG Tab.ER PO SCH (09:41)
[2021-11-13] MEDS: traZODone 50 MG Tab PO SCH (19:47)
[2021-11-13] MEDS: Mirtazapine 15 MG Tab PO SCH (19:47)
[2021-11-13] MEDS: Melatonin 3 MG Tab PO SCH (19:47)
[2021-11-13] MEDS: Acetaminophen 325 MG Tab PO PRN (19:48)
[2021-11-14] MEDS: Omeprazole 20 MG Cap.CR PO SCH (06:24)
[2021-11-14] MEDS: Acetaminophen 325 MG Tab PO PRN (06:29)
[2021-11-14 06:47] LABS: ANION GAP 9.2 mmol/L (5-15); CHLORIDE,CL 106 mmol/L (98-107); SODIUM,NA 142 mmol/L (136-145)
[2021-11-14] MEDS: Azithromycin 250 MG Tab PO SCH (07:58)
[2021-11-14] MEDS: Calcium Carbonate/Vitamin D3 1250 MG-5 MCG Tab PO SCH ×2 (07:58→17:53)
[2021-11-14] MEDS: Potassium Chloride 10 MEQ Tab.ER PO SCH (07:58)
[2021-11-14] MEDS: Multivitamins with Iron/Calcium/Folic Acid/Minerals Tab PO SCH (07:58)
[2021-11-14] MEDS: Cefuroxime 250 MG Tab PO SCH ×2 (07:58→19:47)
[2021-11-14] MEDS: Magnesium Oxide 400 MG Tab PO SCH (07:58)
[2021-11-14] MEDS: Aspirin 81 MG Tab.EC PO SCH (07:58)
[2021-11-14] MEDS: Cholecalciferol (Vitamin D3) 10 MCG Tab PO SCH (07:59)
[2021-11-14] MEDS: Lisinopril 2.5 MG Tab PO SCH (07:59)
[2021-11-14] MEDS: Furosemide 40 MG Tab PO SCH (07:59)
[2021-11-14] MEDS: Citalopram 20 MG Tab PO SCH (07:59)
[2021-11-14] MEDS: Metoprolol Succinate 25 MG Tab.ER PO SCH (08:00)
[2021-11-14] MEDS: Fluticasone Propionate Nasal Spray 9.9 ML BOTTLE NASBOTH SCH ×2 (08:00→21:00)
[2021-11-14] MEDS: Acetaminophen/HYDROcodone 325-5 MG Tab PO PRN ×3 (09:37→15:21)
[2021-11-14] MEDS ORDERED: Ketorolac 15 MG/ML SDV IVPUSH PRN (16:46)
[2021-11-14] MEDS ORDERED: Morphine 2 MG/ML SYRINGE IVPUSH PRN (16:48)
[2021-11-14] MEDS: ALPRAZolam 0.25 MG Tab PO PRN (17:03)
[2021-11-14] MEDS: Melatonin 3 MG Tab PO SCH (19:47)
[2021-11-14] MEDS: traZODone 50 MG Tab PO SCH (19:47)
[2021-11-14] MEDS: Mirtazapine 15 MG Tab PO SCH (19:47)
[2021-11-15] MEDS: ALPRAZolam 0.25 MG Tab PO PRN ×2 (05:04→11:07)
[2021-11-15] MEDS: Omeprazole 20 MG Cap.CR PO SCH (06:10)
[2021-11-15 06:58] LABS: CHLORIDE,CL 102 mmol/L (98-107); SODIUM,NA 139 mmol/L (136-145)
[2021-11-15 07:01] LABS: ANION GAP 9.4 mmol/L (5-15)
[2021-11-15] MEDS: Aspirin 81 MG Tab.EC PO SCH (07:36)
[2021-11-15] MEDS: Multivitamins with Iron/Calcium/Folic Acid/Minerals Tab PO SCH (07:36)
[2021-11-15] MEDS: Cholecalciferol (Vitamin D3) 10 MCG Tab PO SCH (07:36)
[2021-11-15] MEDS: Fluticasone Propionate Nasal Spray 9.9 ML BOTTLE NASBOTH SCH (07:36)
[2021-11-15] MEDS: Furosemide 40 MG Tab PO SCH (07:36)
[2021-11-15] MEDS: Magnesium Oxide 400 MG Tab PO SCH (07:36)
[2021-11-15] MEDS: Calcium Carbonate/Vitamin D3 1250 MG-5 MCG Tab PO SCH (07:36)
[2021-11-15] MEDS: Metoprolol Succinate 25 MG Tab.ER PO SCH (07:37)
[2021-11-15] MEDS: Citalopram 20 MG Tab PO SCH (07:37)
[2021-11-15] MEDS: Lisinopril 2.5 MG Tab PO SCH (07:37)
[2021-11-15 10:05] VITALS: BP 133/77; PULSE 95
== END 2021-11-15 13:45 | disposition home health service (06) | DRG 291 ==
LOC: VM.MS 11:38
PROVIDERS: ADMIT Internal Medicine; ATTEND Internal Medicine
DX: I11.0 Hypertensive heart disease with heart failure (principal); I50.23 Acute on chronic systolic (congestive) heart failure; J96.11 Chronic respiratory failure with hypoxia; F11.221 Opioid dependence with intoxication delirium; E87.5 Hyperkalemia; I48.0 Paroxysmal atrial fibrillation; F41.9 Anxiety disorder, unspecified; G47.00 Insomnia, unspecified; D63.8 Anemia in other chronic diseases classified elsewhere; J44.9 Chronic obstructive pulmonary disease, unspecified; I25.10 Atherosclerotic heart disease of native coronary artery without angina pectoris; G47.33 Obstructive sleep apnea (adult) (pediatric); E78.5 Hyperlipidemia, unspecified; F32.A Depression, unspecified; M81.0 Age-related osteoporosis without current pathological fracture; I34.0 Nonrheumatic mitral (valve) insufficiency; I73.9 Peripheral vascular disease, unspecified; Z88.6 Allergy status to analgesic agent; Z88.8 Allergy status to other drugs, medicaments and biological substances; Z95.1 Presence of aortocoronary bypass graft
CPT/HCPCS: 36415; 71046; 80048; 80053; 82306; 82533; 82728; 82803; 83880; 84132; 84484; 85025; 85610; 85652; 86140; 93005; 97129-GO; 97130-GO; 97162-GP; A9270-GY

== ENCOUNTER 2021-12-02 12:31 | Observation (INO) | payer MEDICARE, OTHER ==
[2021-12-02 13:35] LABS: ACETAMINOPHEN 16 ug/ml (10-30); CHLORIDE,CL 101 mmol/L (98-107); SODIUM,NA 140 mmol/L (136-145)
[2021-12-02 13:39] LABS: ANION GAP 12.2 mmol/L (5-15)
[2021-12-02] MEDS ORDERED: HYDROmorphone 1 MG/ML Syringe SUBCUT ONE (13:56)
[2021-12-02] MEDS ORDERED: Metoclopramide 10 MG/2 ML SDV IM ONE (13:57)
[2021-12-02 15:07] LABS: BARBITURATE SCREEN,URINE NEGATIVE (NEGATIVE); BENZODIAZEPINES SCREEN,URINE POSITIVE (NEGATIVE); METHAMPHETAMINE SCREEN, URINE NEGATIVE (NEGATIVE)
[2021-12-02 15:08] LABS: BUPRENORPHINE SCREEN,URINE NEGATIVE (NEGATIVE); THC SCREEN,URINE 50 NG/ML NEGATIVE (NEGATIVE)
[2021-12-02] MEDS ORDERED: ALPRAZolam 0.25 MG Tab PO PRN (17:46)
[2021-12-02] MEDS ORDERED: Acetaminophen 325 MG Tab PO PRN (17:46)
[2021-12-02] MEDS ORDERED: Diclofenac Sodium 1% Gel 100 GM Tube TOP PRN (17:46)
[2021-12-02] MEDS ORDERED: Acetaminophen/HYDROcodone 325-5 MG Tab PO PRN (17:52)
[2021-12-02] MEDS ORDERED: Metoclopramide 10 MG Tab PO PRN (17:54)
[2021-12-02] MEDS ORDERED: BUPRENORPHINE TD SCH (18:00)
[2021-12-02] MEDS ORDERED: Non-Formulary Medication 1 Each (Denosumab [Prolia] 60 MG/ML Syringe) SUBCUT SCH (18:00)
[2021-12-02] MEDS: Melatonin 3 MG Tab PO SCH ×2 (19:49→20:19)
[2021-12-02] MEDS: Mirtazapine 15 MG Tab PO SCH ×2 (19:50→20:19)
[2021-12-02] MEDS: traZODone 50 MG Tab PO SCH ×2 (19:50→20:19)
[2021-12-02] MEDS: Calcium Carbonate/Vitamin D3 1250 MG-5 MCG Tab PO SCH (19:52)
[2021-12-03 05:42] VITALS: BP 160/80; PULSE 82
[2021-12-03] MEDS: Omeprazole 20 MG Cap.CR PO SCH ×2 (05:55→06:19)
[2021-12-03 07:27] LABS: CHLORIDE,CL 102 mmol/L (98-107); SODIUM,NA 143 mmol/L (136-145)
[2021-12-03 07:28] LABS: ANION GAP 11.9 mmol/L (5-15)
[2021-12-03] MEDS ORDERED: predniSONE 1 MG Tab PO SCH (09:00)
[2021-12-03] MEDS ORDERED: Metoprolol Succinate 25 MG Tab.ER PO SCH (09:00)
[2021-12-03] MEDS ORDERED: Lisinopril 5 MG Tab PO SCH ×2 (09:00)
[2021-12-03] MEDS ORDERED: Multivitamins with Iron/Calcium/Folic Acid/Minerals Tab PO SCH (09:00)
[2021-12-03] MEDS ORDERED: Furosemide 20 MG Tab PO SCH (09:00)
[2021-12-03] MEDS ORDERED: Citalopram 20 MG Tab PO SCH (09:00)
[2021-12-03] MEDS ORDERED: Cholecalciferol (Vitamin D3) 10 MCG Tab PO SCH (09:00)
[2021-12-03] MEDS ORDERED: Aspirin 81 MG Tab.EC PO SCH (09:00)
[2021-12-03] MEDS ORDERED: Fluticasone Propionate Nasal Spray 9.9 ML BOTTLE NASBOTH SCH (09:00)
[2021-12-03] MEDS: Calcium Carbonate/Vitamin D3 1250 MG-5 MCG Tab PO SCH (09:04)
== END 2021-12-03 13:15 | disposition home health service (06) ==
LOC: VM.ED 12:31 → VM.MS 17:09
PROVIDERS: ADMIT Physician Assistant; ATTEND Physician Assistant
DX: G44.209 Tension-type headache, unspecified, not intractable (principal); R45.851 Suicidal ideations; I25.10 Atherosclerotic heart disease of native coronary artery without angina pectoris; F11.20 Opioid dependence, uncomplicated; I11.0 Hypertensive heart disease with heart failure; J44.9 Chronic obstructive pulmonary disease, unspecified; I50.9 Heart failure, unspecified; E78.00 Pure hypercholesterolemia, unspecified; G47.30 Sleep apnea, unspecified; M81.0 Age-related osteoporosis without current pathological fracture; F41.9 Anxiety disorder, unspecified; F32.A Depression, unspecified; G47.00 Insomnia, unspecified; I48.0 Paroxysmal atrial fibrillation; D64.9 Anemia, unspecified; I73.9 Peripheral vascular disease, unspecified; J96.11 Chronic respiratory failure with hypoxia; Z99.81 Dependence on supplemental oxygen; Z88.8 Allergy status to other drugs, medicaments and biological substances; Z79.899 Other long term (current) drug therapy; Z79.82 Long term (current) use of aspirin; Z98.890 Other specified postprocedural states
CPT/HCPCS: 36415; 70450; 80048; 80053; 80143; 80179; 80305-QW; 80307; 81003; 83735; 84100; 84443; 85025; 96372; 99220; 99285-25; A9270-GY; J1170; J2765; J7512

== ENCOUNTER 2022-03-05 15:11 | Emergency (ER) | payer MEDICARE, OTHER ==
[2022-03-05 16:04] LABS: CHLORIDE,CL 98 mmol/L (98-107); SODIUM,NA 138 mmol/L (136-145)
[2022-03-05 16:05] LABS: ANION GAP 11.6 mmol/L (5-15); ESTIMATED GFR 75 mL/min (>=60)
[2022-03-05] MEDS ORDERED: Acetaminophen 500 MG Tab PO ONE (16:30)
[2022-03-05 16:37] LABS: BARBITURATE SCREEN,URINE NEGATIVE (NEGATIVE); BENZODIAZEPINES SCREEN,URINE NEGATIVE (NEGATIVE); BUPRENORPHINE SCREEN,URINE NEGATIVE (NEGATIVE); METHAMPHETAMINE SCREEN, URINE NEGATIVE (NEGATIVE); THC SCREEN,URINE 50 NG/ML NEGATIVE (NEGATIVE)
[2022-03-05 17:05] VITALS: BP 144/84; PULSE 92
== END 2022-03-05 17:23 ==
LOC: VM.ED 15:11
DX: F32.A Depression, unspecified (principal); R45.851 Suicidal ideations; I48.91 Unspecified atrial fibrillation; I25.10 Atherosclerotic heart disease of native coronary artery without angina pectoris; I11.0 Hypertensive heart disease with heart failure; I50.9 Heart failure, unspecified; E78.00 Pure hypercholesterolemia, unspecified; J44.9 Chronic obstructive pulmonary disease, unspecified; Z88.8 Allergy status to other drugs, medicaments and biological substances; Z79.899 Other long term (current) drug therapy
CPT/HCPCS: 36415; 80053; 80143; 80179; 80305-QW; 80307; 81003; 83735; 84443; 85025; 85610; 85730; 99284; 99285; A9270-GY

== ENCOUNTER 2022-03-08 13:55 | Emergency (ER) | payer MEDICARE, OTHER ==
[2022-03-08 14:58] LABS: BARBITURATE SCREEN,URINE NEGATIVE (NEGATIVE); BENZODIAZEPINES SCREEN,URINE NEGATIVE (NEGATIVE); BUPRENORPHINE SCREEN,URINE NEGATIVE (NEGATIVE); METHAMPHETAMINE SCREEN, URINE NEGATIVE (NEGATIVE); THC SCREEN,URINE 50 NG/ML NEGATIVE (NEGATIVE)
[2022-03-08 15:20] LABS: CHLORIDE,CL 100 mmol/L (98-107); SODIUM,NA 135 mmol/L (136-145)
[2022-03-08 15:33] LABS: ANION GAP 9.6 mmol/L (5-15); ESTIMATED GFR 75 mL/min (>=60)
[2022-03-08 15:38] VITALS: BP 150/75; PULSE 70
[2022-03-08 17:51] LABS: CORONAVIRUS COVID-19 NAA NEGATIVE (NEGATIVE); RESPIRATORY SYNCYTIAL VIR NAA NEGATIVE (NEGATIVE)
== END 2022-03-08 17:44 | disposition home or self-care (01) ==
LOC: VM.ED 13:55
DX: R45.851 Suicidal ideations (principal); I48.91 Unspecified atrial fibrillation; I25.10 Atherosclerotic heart disease of native coronary artery without angina pectoris; I11.0 Hypertensive heart disease with heart failure; I50.9 Heart failure, unspecified; E78.00 Pure hypercholesterolemia, unspecified; Z88.8 Allergy status to other drugs, medicaments and biological substances; Z79.899 Other long term (current) drug therapy; Z79.82 Long term (current) use of aspirin; Z20.822 Contact with and (suspected) exposure to COVID-19
CPT/HCPCS: 0241U; 36415; 80053; 80305; 80307; 81003; 85025; 99284

== ENCOUNTER 2022-06-25 17:04 | Emergency (ER) | payer MEDICARE, OTHER ==
[2022-06-25] MEDS ORDERED: Sodium Chloride 0.9% 10 ML Syringe FLUSH PRN (17:15)
[2022-06-25] MEDS ORDERED: Sodium Chloride 0.9% 1,000 ML IV SCH (17:30)
[2022-06-25] MEDS ORDERED: Iopamidol 612 MG/ML 100 ML Bottle IVPUSH ONE (17:32)
[2022-06-25 17:42] LABS: PTT,PARTIAL THROMBOPLSTIN TIME 29.9 SEC (20.5-30.9)
[2022-06-25 17:43] LABS: CHLORIDE,CL 101 mmol/L (98-107); SODIUM,NA 140 mmol/L (136-145)
[2022-06-25 17:44] LABS: ANION GAP 14.4 mmol/L (5-15); ESTIMATED GFR 75 mL/min (>=60)
[2022-06-25] MEDS ORDERED: Pantoprazole 40 MG Vial IVPUSH ONE (17:44)
[2022-06-25 19:55] VITALS: BP 148/88; PULSE 86
== END 2022-06-25 20:35 | disposition short-term general hospital (02) ==
LOC: VM.ED 17:04
DX: K92.2 Gastrointestinal hemorrhage, unspecified (principal); I48.91 Unspecified atrial fibrillation; I25.10 Atherosclerotic heart disease of native coronary artery without angina pectoris; I11.0 Hypertensive heart disease with heart failure; I50.9 Heart failure, unspecified; E78.00 Pure hypercholesterolemia, unspecified; I25.2 Old myocardial infarction; J44.9 Chronic obstructive pulmonary disease, unspecified; K21.9 Gastro-esophageal reflux disease without esophagitis; Z88.8 Allergy status to other drugs, medicaments and biological substances; Z88.1 Allergy status to other antibiotic agents; Z79.82 Long term (current) use of aspirin; Z79.899 Other long term (current) drug therapy
CPT/HCPCS: 36415; 74177; 80053; 83605; 83735; 84100; 85025; 85610; 85730; 86140; 96361; 96374; 99285-25; C9113; J7030; Q9967

== ENCOUNTER 2023-06-11 10:13 | Emergency (ER) | payer MEDICARE, OTHER, MEDICAID ==
[2023-06-11] MEDS ORDERED: Lidocaine 1% with EPINEPHrine 1:100,000 20 ML MDV ONE (10:58)
[2023-06-11 11:04] LABS: BASOPHILS PERCENT AUTO 0.3 % (0.2-1.2); EOSINOPHILS ABSOLUTE AUTO 0.2 x10^3/uL (0.0-0.5); EOSINOPHILS PERCENT AUTO 2.2 % (0.0-4.0); HEMATOCRIT 31.8 % (40.0-52.0); HEMOGLOBIN 9.5 g/dL (14.0-18.0); IMMATURE GRAN ABSOLUTE AUTO 0.02 x10^3/uL (0.00-0.07); LYMPHOCYTES ABSOLUTE AUTO 0.7 x10^3/uL (1.0-4.8); LYMPHOCYTES PERCENT AUTO 7.5 % (25.0-50.0); MEAN CORPUSCULAR HEMOGLOBIN 26.5 pg (26.0-32.0); MEAN CORPUSCULAR HGB CONC 29.9 g/dL (32.0-36.0); MEAN CORPUSCULAR VOLUME 88.6 fL (78.0-93.0); MONOCYTES ABSOLUTE AUTO 0.6 x10^3/uL (0.0-0.8); MONOCYTES PERCENT AUTO 6.8 % (2.0-11.0); NEUTROPHILS ABSOLUTE AUTO 7.5 x10^3/uL (1.8-7.7); PLATELET COUNT,PLT 150 x10^3/uL (130-400); RED BLOOD CELL COUNT 3.59 x10^6/uL (4.5-6.0); WHITE BLOOD CELL COUNT,WBC 9.1 x10^3/uL (4.0-10.0)
[2023-06-11 11:24] LABS: A/G RATIO 0.92; ALBUMIN 3.3 g/dL (3.4-5.0); BILIRUBIN TOTAL 0.5 mg/dL (0.2-1.0); CALCIUM 9.4 mg/dL (8.5-10.1); CREATININE 0.9 mg/dL (0.70-1.30); EST CRCL DRUG DOSING (CG) 56.45 mL/min; POTASSIUM,K 3.9 mmol/L (3.5-5.1); PROTEIN TOTAL,TP 6.9 g/dL (6.4-8.2)
[2023-06-11 11:25] LABS: ANION GAP 10.9 mmol/L (5-15)
[2023-06-11] MEDS ORDERED: Lidocaine 1% with EPINEPHrine 1:100,000 20 ML MDV INFILT PRN (11:41)
[2023-06-11 12:03] VITALS: BP 129/85; PULSE 90
== END 2023-06-11 12:20 ==
LOC: VM.ED 10:13
DX: S02.32XA Fracture of orbital floor, left side, initial encounter for closed fracture (principal); S02.40DA Maxillary fracture, left side, initial encounter for closed fracture; S01.21XA Laceration without foreign body of nose, initial encounter; S01.111A Laceration without foreign body of right eyelid and periocular area, initial encounter; S81.012A Laceration without foreign body, left knee, initial encounter; M54.2 Cervicalgia; I48.91 Unspecified atrial fibrillation; I25.10 Atherosclerotic heart disease of native coronary artery without angina pectoris; I11.0 Hypertensive heart disease with heart failure; I50.9 Heart failure, unspecified; I25.2 Old myocardial infarction; J44.9 Chronic obstructive pulmonary disease, unspecified; K21.9 Gastro-esophageal reflux disease without esophagitis; Z88.8 Allergy status to other drugs, medicaments and biological substances; Z88.1 Allergy status to other antibiotic agents; Z79.899 Other long term (current) drug therapy; W06.XXXA Fall from bed, initial encounter; Y92.129 Unspecified place in nursing home as the place of occurrence of the external cause
CPT/HCPCS: 12004; 12011; 36415; 70450; 72125; 80053; 85025; 99284; J3490

== ENCOUNTER 2023-06-13 21:12 | Inpatient (IN) | payer MEDICARE, OTHER, MEDICAID ==
[2023-06-13] MEDS ORDERED: Sodium Chloride 0.9% 10 ML Syringe FLUSH PRN (21:22)
[2023-06-13 21:41] LABS: BASOPHILS PERCENT AUTO 0.5 % (0.2-1.2); EOSINOPHILS ABSOLUTE AUTO 0.1 x10^3/uL (0.0-0.5); EOSINOPHILS PERCENT AUTO 1.8 % (0.0-4.0); HEMATOCRIT 29.7 % (40.0-52.0); HEMOGLOBIN 8.9 g/dL (14.0-18.0); IMMATURE GRAN ABSOLUTE AUTO 0.04 x10^3/uL (0.00-0.07); LYMPHOCYTES ABSOLUTE AUTO 0.7 x10^3/uL (1.0-4.8); LYMPHOCYTES PERCENT AUTO 9.5 % (25.0-50.0); MEAN CORPUSCULAR HEMOGLOBIN 26.3 pg (26.0-32.0); MEAN CORPUSCULAR VOLUME 87.9 fL (78.0-93.0); MONOCYTES ABSOLUTE AUTO 0.6 x10^3/uL (0.0-0.8); MONOCYTES PERCENT AUTO 7.4 % (2.0-11.0); NEUTROPHILS ABSOLUTE AUTO 6.1 x10^3/uL (1.8-7.7); NEUTROPHILS PERCENT AUTO 80.3 % (50.0-80.0); PLATELET COUNT,PLT 174 x10^3/uL (130-400); RED BLOOD CELL COUNT 3.38 x10^6/uL (4.5-6.0); WHITE BLOOD CELL COUNT,WBC 7.6 x10^3/uL (4.0-10.0)
[2023-06-13 22:00] LABS: INR 1.1 (0.9-1.1); PROTHROMBIN TIME 12.2 SEC (9.5-12.2); PTT,PARTIAL THROMBOPLSTIN TIME 26.9 SEC (23.6-33.6)
[2023-06-13 22:04] LABS: LACTIC ACID 1.2 mmol/L (0.4-2.0)
[2023-06-13 22:05] LABS: A/G RATIO 0.94; ALANINE AMINOTRANSFERASE,ALT 27 U/L (16-63); ALBUMIN 3.2 g/dL (3.4-5.0); ALKALINE PHOSPHATASE 88 U/L (46-116); ASPARTATE AMNIOTRANSFERASE,AST 37 U/L (15-37); BILIRUBIN TOTAL 0.7 mg/dL (0.2-1.0); BLOOD UREA NITROGEN,BUN 36 mg/dL (7-18); C-REACTIVE PROTEIN 5.95 mg/dL (<=0.50); CALCIUM 9.8 mg/dL (8.5-10.1); CARBON DIOXIDE,CO2 35 mmol/L (21-32); CHLORIDE,CL 107 mmol/L (98-107); CREATININE 1.2 mg/dL (0.70-1.30); GLUCOSE RANDOM 88 mg/dL (70-99); MAGNESIUM 1.7 mg/dL (1.8-2.4); POTASSIUM,K 3.9 mmol/L (3.5-5.1); PROTEIN TOTAL,TP 6.6 g/dL (6.4-8.2); SODIUM,NA 148 mmol/L (136-145)
[2023-06-13 22:19] LABS: ANION GAP 9.9 mmol/L (5-15); ESTIMATED GFR 60 mL/min (>=60)
[2023-06-13] MEDS ORDERED: Lactated Ringers 1,000 ML IV ONE (22:36)
[2023-06-13] MEDS ORDERED: Piperacillin/Tazobactam 3.375 GM in Sodium Chloride 0.9% 100 ML IV ONE (22:37)
[2023-06-13 22:39] LABS: APPEARANCE,URINE CLEAR (CLEAR); BILIRUBIN,URINE NEGATIVE (NEGATIVE); COLOR,URINE DARK YELLOW (YELLOW); GLUCOSE,URINE NEGATIVE (NEGATIVE); KETONES,URINE TRACE mg/dL (NEGATIVE); LEUKOCYTE ESTERASE,URINE NEGATIVE (NEGATIVE); NITRITE,URINE NEGATIVE (NEGATIVE); OCCULT BLOOD,URINE NEGATIVE (NEGATIVE); PH,URINE 5.5 (5.0-8.0); PROTEIN,URINE NEGATIVE (NEGATIVE)
[2023-06-14] MEDS ORDERED: Albuterol HFA 18 Gm Inhaler INH PRN (02:48)
[2023-06-14] MEDS ORDERED: Magnesium Hydroxide 400 MG/5 ML Susp 30 ML Cup PO PRN (02:48)
[2023-06-14] MEDS: Piperacillin/Tazobactam 3.375 GM in Sodium Chloride 0.9% 100 ML IV SCH ×3 (06:00→22:09)
[2023-06-14] MEDS: Acetaminophen 325 MG Tab PO PRN ×2 (06:27→13:08)
[2023-06-14 08:36] LABS: BASOPHILS ABSOLUTE AUTO 0.1 x10^3/uL (0.0-0.2); BASOPHILS PERCENT AUTO 0.5 % (0.2-1.2); EOSINOPHILS ABSOLUTE AUTO 0.2 x10^3/uL (0.0-0.5); HEMATOCRIT 29.7 % (40.0-52.0); HEMOGLOBIN 8.8 g/dL (14.0-18.0); IMMATURE GRAN ABSOLUTE AUTO 0.04 x10^3/uL (0.00-0.07); LYMPHOCYTES ABSOLUTE AUTO 0.9 x10^3/uL (1.0-4.8); LYMPHOCYTES PERCENT AUTO 7.7 % (25.0-50.0); MEAN CORPUSCULAR HEMOGLOBIN 26.4 pg (26.0-32.0); MEAN CORPUSCULAR HGB CONC 29.6 g/dL (32.0-36.0); MEAN CORPUSCULAR VOLUME 89.2 fL (78.0-93.0); MONOCYTES ABSOLUTE AUTO 0.7 x10^3/uL (0.0-0.8); MONOCYTES PERCENT AUTO 6.3 % (2.0-11.0); NEUTROPHILS ABSOLUTE AUTO 9.4 x10^3/uL (1.8-7.7); NEUTROPHILS PERCENT AUTO 83.1 % (50.0-80.0); PLATELET COUNT,PLT 179 x10^3/uL (130-400); RED BLOOD CELL COUNT 3.33 x10^6/uL (4.5-6.0); WHITE BLOOD CELL COUNT,WBC 11.3 x10^3/uL (4.0-10.0)
[2023-06-14] MEDS: Docusate Sodium 100 MG Cap PO SCH (08:43)
[2023-06-14] MEDS: predniSONE 1 MG Tab PO SCH (08:43)
[2023-06-14] MEDS: Beta-Carotene (Vitamin A) w/Vitamin C & E plus Minerals Tab PO SCH (08:43)
[2023-06-14] MEDS: Lisinopril 20 MG Tab PO SCH (08:44)
[2023-06-14] MEDS: predniSONE 5 MG Tab PO SCH (08:44)
[2023-06-14] MEDS: Gabapentin 100 MG Cap PO SCH ×2 (08:44→20:54)
[2023-06-14] MEDS: Metoprolol Succinate 25 MG Tab.ER PO SCH (08:44)
[2023-06-14] MEDS: Cholecalciferol (Vitamin D3) 10 MCG Tab PO SCH (08:44)
[2023-06-14] MEDS: Furosemide 20 MG Tab PO SCH (08:45)
[2023-06-14] MEDS: busPIRone 15 MG Tab PO SCH ×2 (08:45→20:55)
[2023-06-14] MEDS: Magnesium Oxide 400 MG Tab PO SCH (08:45)
[2023-06-14] MEDS: Cyanocobalamin (Vitamin B12) 1,000 MCG Tab PO SCH (08:45)
[2023-06-14] MEDS: Calcium Citrate/Vitamin D3 315 MG-250 Unit Tab PO SCH ×2 (08:45→20:55)
[2023-06-14] MEDS: Polyethylene Glycol 3350 Powder 17 GM Packet PO SCH (08:46)
[2023-06-14] MEDS ORDERED: FLU (Fluad Quad) 2023-24(65UP)/MF59C/PF 60 MCG/0.5 ML Syringe IM ONE (09:00)
[2023-06-14 09:04] LABS: A/G RATIO 0.91; ALBUMIN 3.2 g/dL (3.4-5.0); BILIRUBIN TOTAL 0.6 mg/dL (0.2-1.0); CALCIUM 9.9 mg/dL (8.5-10.1); CREATININE 1.2 mg/dL (0.70-1.30); EST CRCL DRUG DOSING (CG) 41.31 mL/min; POTASSIUM,K 4.2 mmol/L (3.5-5.1); PROTEIN TOTAL,TP 6.7 g/dL (6.4-8.2)
[2023-06-14 09:06] LABS: ANION GAP 10.2 mmol/L (5-15)
[2023-06-14] MEDS: Ondansetron 4 MG Tab.DIS PO PRN ×2 (13:07→19:33)
[2023-06-14] MEDS: DULoxetine 60 MG Cap PO SCH (20:53)
[2023-06-14] MEDS: Lisinopril 10 MG Tab PO SCH (20:54)
[2023-06-14] MEDS ORDERED: QUEtiapine 25 MG Tab PO SCH (21:00)
[2023-06-14] MEDS ORDERED: traZODone 50 MG Tab PO SCH (21:00)
[2023-06-15] MEDS: Acetaminophen 325 MG Tab PO PRN ×2 (01:47→16:14)
[2023-06-15] MEDS ORDERED: Amoxicillin/Clavulanate K 875-125 MG Tab PO SCH (07:00)
[2023-06-15 07:05] LABS: BASOPHILS ABSOLUTE AUTO 0.1 x10^3/uL (0.0-0.2); BASOPHILS PERCENT AUTO 0.8 % (0.2-1.2); EOSINOPHILS ABSOLUTE AUTO 0.2 x10^3/uL (0.0-0.5); HEMATOCRIT 30.3 % (40.0-52.0); HEMOGLOBIN 8.7 g/dL (14.0-18.0); IMMATURE GRAN ABSOLUTE AUTO 0.02 x10^3/uL (0.00-0.07); LYMPHOCYTES ABSOLUTE AUTO 1.2 x10^3/uL (1.0-4.8); LYMPHOCYTES PERCENT AUTO 15.4 % (25.0-50.0); MEAN CORPUSCULAR HEMOGLOBIN 26.4 pg (26.0-32.0); MEAN CORPUSCULAR HGB CONC 28.7 g/dL (32.0-36.0); MEAN CORPUSCULAR VOLUME 92.1 fL (78.0-93.0); MONOCYTES ABSOLUTE AUTO 0.6 x10^3/uL (0.0-0.8); MONOCYTES PERCENT AUTO 8.3 % (2.0-11.0); NEUTROPHILS ABSOLUTE AUTO 5.5 x10^3/uL (1.8-7.7); NEUTROPHILS PERCENT AUTO 73.2 % (50.0-80.0); PLATELET COUNT,PLT 162 x10^3/uL (130-400); WHITE BLOOD CELL COUNT,WBC 7.5 x10^3/uL (4.0-10.0)
[2023-06-15 07:25] LABS: CALCIUM 10.3 mg/dL (8.5-10.1); CREATININE 1.1 mg/dL (0.70-1.30); EST CRCL DRUG DOSING (CG) 44.84 mL/min; POTASSIUM,K 4.7 mmol/L (3.5-5.1)
[2023-06-15 07:26] LABS: ANION GAP 9.7 mmol/L (5-15)
[2023-06-15 07:31] LABS: RED BLOOD CELL COUNT 3.29 x10^6/uL (4.5-6.0)
[2023-06-15 09:16] LABS: HCO3 VENOUS,POC 34 mmol/L (22-29); O2 SATURATION VENOUS,POC 71 %; PCO2 VENOUS,POC 67 mmHg (41-51); PH VENOUS,POC 7.31 pH (7.32-7.43); PO2 VENOUS,POC 42 mmHg
[2023-06-15] MEDS: busPIRone 15 MG Tab PO SCH ×2 (09:42→20:28)
[2023-06-15] MEDS: Metoprolol Succinate 25 MG Tab.ER PO SCH (09:44)
[2023-06-15] MEDS: predniSONE 1 MG Tab PO SCH (09:45)
[2023-06-15] MEDS: predniSONE 5 MG Tab PO SCH (09:45)
[2023-06-15] MEDS: Gabapentin 100 MG Cap PO SCH (09:45)
[2023-06-15] MEDS: Furosemide 20 MG Tab PO SCH (09:45)
[2023-06-15] MEDS: Lisinopril 20 MG Tab PO SCH (09:45)
[2023-06-15] MEDS: Cholecalciferol (Vitamin D3) 10 MCG Tab PO SCH (09:49)
[2023-06-15] MEDS: Beta-Carotene (Vitamin A) w/Vitamin C & E plus Minerals Tab PO SCH (09:49)
[2023-06-15] MEDS: Cyanocobalamin (Vitamin B12) 1,000 MCG Tab PO SCH (09:49)
[2023-06-15] MEDS: Magnesium Oxide 400 MG Tab PO SCH (09:49)
[2023-06-15] MEDS: Docusate Sodium 100 MG Cap PO SCH (09:50)
[2023-06-15] MEDS: Polyethylene Glycol 3350 Powder 17 GM Packet PO SCH (10:00)
[2023-06-15] MEDS: Calcium Citrate/Vitamin D3 315 MG-250 Unit Tab PO SCH ×2 (10:01→22:21)
[2023-06-15] MEDS ORDERED: Albuterol HFA 18 Gm Inhaler INH PRN (12:27)
[2023-06-15] MEDS: Piperacillin/Tazobactam 3.375 GM in Sodium Chloride 0.9% 100 ML IV SCH ×2 (14:49→22:15)
[2023-06-15] MEDS: Lisinopril 10 MG Tab PO SCH (20:29)
[2023-06-15] MEDS: DULoxetine 60 MG Cap PO SCH (20:29)
[2023-06-15] MEDS ORDERED: Gabapentin 100 MG Cap PO SCH (21:00)
[2023-06-15] MEDS ORDERED: QUEtiapine 25 MG Tab PO SCH (21:00)
[2023-06-15] MEDS ORDERED: traZODone 50 MG Tab PO SCH (21:00)
[2023-06-16] MEDS: Piperacillin/Tazobactam 3.375 GM in Sodium Chloride 0.9% 100 ML IV SCH (06:11)
[2023-06-16 06:50] LABS: BASOPHILS ABSOLUTE AUTO 0.1 x10^3/uL (0.0-0.2); BASOPHILS PERCENT AUTO 0.6 % (0.2-1.2); EOSINOPHILS ABSOLUTE AUTO 0.1 x10^3/uL (0.0-0.5); EOSINOPHILS PERCENT AUTO 1.1 % (0.0-4.0); HEMATOCRIT 29.5 % (40.0-52.0); HEMOGLOBIN 8.6 g/dL (14.0-18.0); IMMATURE GRAN ABSOLUTE AUTO 0.11 x10^3/uL (0.00-0.07); LYMPHOCYTES ABSOLUTE AUTO 1.1 x10^3/uL (1.0-4.8); LYMPHOCYTES PERCENT AUTO 12.5 % (25.0-50.0); MEAN CORPUSCULAR HEMOGLOBIN 26.3 pg (26.0-32.0); MEAN CORPUSCULAR HGB CONC 29.2 g/dL (32.0-36.0); MEAN CORPUSCULAR VOLUME 90.2 fL (78.0-93.0); MONOCYTES ABSOLUTE AUTO 0.7 x10^3/uL (0.0-0.8); MONOCYTES PERCENT AUTO 7.8 % (2.0-11.0); NEUTROPHILS ABSOLUTE AUTO 6.9 x10^3/uL (1.8-7.7); NEUTROPHILS PERCENT AUTO 76.8 % (50.0-80.0); PLATELET COUNT,PLT 168 x10^3/uL (130-400)
[2023-06-16 07:11] LABS: RED BLOOD CELL COUNT 3.27 x10^6/uL (4.5-6.0)
[2023-06-16 07:14] LABS: HCO3 VENOUS,POC 33 mmol/L (22-29); O2 SATURATION VENOUS,POC 97 %; PCO2 VENOUS,POC 63 mmHg (41-51); PH VENOUS,POC 7.33 pH (7.32-7.43); PO2 VENOUS,POC 101 mmHg
[2023-06-16 07:15] LABS: A/G RATIO 0.91; ALBUMIN 3.1 g/dL (3.4-5.0); BILIRUBIN TOTAL 0.5 mg/dL (0.2-1.0); CALCIUM 9.7 mg/dL (8.5-10.1); CREATININE 1.3 mg/dL (0.70-1.30); EST CRCL DRUG DOSING (CG) 37.88 mL/min; POTASSIUM,K 4.4 mmol/L (3.5-5.1); PROTEIN TOTAL,TP 6.5 g/dL (6.4-8.2)
[2023-06-16 07:17] LABS: ANION GAP 11.4 mmol/L (5-15)
[2023-06-16] MEDS ORDERED: BUPRENORPHINE 7.5 MG TOP SCH (09:00)
[2023-06-16] MEDS: predniSONE 1 MG Tab PO SCH (09:24)
[2023-06-16] MEDS: Cyanocobalamin (Vitamin B12) 1,000 MCG Tab PO SCH (09:24)
[2023-06-16] MEDS: Calcium Citrate/Vitamin D3 315 MG-250 Unit Tab PO SCH (09:24)
[2023-06-16] MEDS: Magnesium Oxide 400 MG Tab PO SCH (09:24)
[2023-06-16] MEDS: Furosemide 20 MG Tab PO SCH (09:24)
[2023-06-16] MEDS: Polyethylene Glycol 3350 Powder 17 GM Packet PO SCH (09:24)
[2023-06-16] MEDS: Beta-Carotene (Vitamin A) w/Vitamin C & E plus Minerals Tab PO SCH (09:24)
[2023-06-16] MEDS: predniSONE 5 MG Tab PO SCH (09:24)
[2023-06-16] MEDS: busPIRone 15 MG Tab PO SCH (09:25)
[2023-06-16] MEDS: Docusate Sodium 100 MG Cap PO SCH (09:25)
[2023-06-16] MEDS: Cholecalciferol (Vitamin D3) 10 MCG Tab PO SCH (09:25)
[2023-06-16 13:26] VITALS: BP 117/70; PULSE 87
[2023-06-17] MEDS ORDERED: Metoprolol Succinate 25 MG Tab.ER PO SCH (09:00)
[2023-06-17] MEDS ORDERED: busPIRone 15 MG Tab PO SCH (09:00)
== END 2023-06-16 11:15 | DRG 189 ==
LOC: VM.ED 21:12 → VM.MS 22:42
PROVIDERS: ADMIT Physician Assistant; ATTEND Internal Medicine
PROC: 4A143R3 Monitoring of Venous Saturation, Pulmonary, Percutaneous Approach (ICD-10-PCS; principal; 2023-06-15)
DX: J96.21 Acute and chronic respiratory failure with hypoxia (principal); S02.40DA Maxillary fracture, left side, initial encounter for closed fracture; S02.2XXA Fracture of nasal bones, initial encounter for closed fracture; E86.0 Dehydration; F03.C18 Unspecified dementia, severe, with other behavioral disturbance; I48.91 Unspecified atrial fibrillation; I21.4 Non-ST elevation (NSTEMI) myocardial infarction; I50.9 Heart failure, unspecified; E87.0 Hyperosmolality and hypernatremia; E44.0 Moderate protein-calorie malnutrition; I50.42 Chronic combined systolic (congestive) and diastolic (congestive) heart failure; I25.10 Atherosclerotic heart disease of native coronary artery without angina pectoris; R74.01 Elevation of levels of liver transaminase levels; J44.9 Chronic obstructive pulmonary disease, unspecified; Z66 Do not resuscitate; W19.XXXA Unspecified fall, initial encounter; I11.0 Hypertensive heart disease with heart failure; F41.9 Anxiety disorder, unspecified; S02.40CD Maxillary fracture, right side, subsequent encounter for fracture with routine healing; S02.2XXD Fracture of nasal bones, subsequent encounter for fracture with routine healing; E78.00 Pure hypercholesterolemia, unspecified; K21.9 Gastro-esophageal reflux disease without esophagitis; F11.90 Opioid use, unspecified, uncomplicated; J01.40 Acute pansinusitis, unspecified; I48.0 Paroxysmal atrial fibrillation; M35.3 Polymyalgia rheumatica; D50.9 Iron deficiency anemia, unspecified; Z96.651 Presence of right artificial knee joint; G47.00 Insomnia, unspecified; G30.1 Alzheimer's disease with late onset; F02.80 Dementia in other diseases classified elsewhere, unspecified severity, without behavioral disturbance, psychotic disturbance, mood disturbance, and anxiety; F34.1 Dysthymic disorder; Z96.659 Presence of unspecified artificial knee joint; M81.0 Age-related osteoporosis without current pathological fracture; R51.9 Headache, unspecified; Z99.81 Dependence on supplemental oxygen; Z91.81 History of falling; Z95.1 Presence of aortocoronary bypass graft; Z88.8 Allergy status to other drugs, medicaments and biological substances; Z68.21 Body mass index [BMI] 21.0-21.9, adult; Z98.42 Cataract extraction status, left eye; Z98.41 Cataract extraction status, right eye; Z79.01 Long term (current) use of anticoagulants; Z90.49 Acquired absence of other specified parts of digestive tract; W18.30XD Fall on same level, unspecified, subsequent encounter; I25.2 Old myocardial infarction; Z98.49 Cataract extraction status, unspecified eye; Z98.890 Other specified postprocedural states; Z79.899 Other long term (current) drug therapy
CPT/HCPCS: 36415; 70450; 70486; 71045; 80048; 80053; 81003; 82803; 83605; 83735; 84484; 85025; 85610; 85730; 86140; 87040; 87070; 93010; 94760; 97162-GP; 97165-GO; 99284; A9270-GY; J2543; J3490; J7120; J7512